=== PATIENT | female | born 1955 | race Caucasian/White ===

== ENCOUNTER → 2018-07-01 08:53 | Outpatient (CLI) | payer BC, SELFPAY ==
[2018-07-01 09:51] LABS: Absolute Basophil Count 0.06 k/cumm (0.0-0.2); Absolute Eosinophil Count 0.14 k/cumm (0.0-0.7); Absolute Lymphocyte Count 2.08 k/cumm (1.2-3.4); Absolute Monocyte Count 0.38 k/cumm (0.11-0.7); Absolute Neutrophil Count 1.78 k/cumm (1.2-6.7); Basophils % 1.4; Eosinophils % 3.2; HCT 29.1 % (36.0-46.0); HGB 9.2 g/dL (12.0-15.5); Lymphocytes % 46.8; Mean Corp. HGB Concentration 31.6 g/dL (32.0-36.0); Mean Corpuscular Hemoglobin 25.3 pg (27.0-33.0); Mean Corpuscular Volume 79.9 fL (80-95); Mean Platelet Volume 9.1 fL (8.0-11.0); Monocytes % 8.6; RBC 3.64 m/cumm (4.00-5.20); RBC Distribution Width 16.7 % (11.7-14.6); White Blood Cell Count 4.44 k/cumm (4.4-10.8)
[2018-07-01 10:37] LABS: Anisocytosis 1+; Diff Comment RBC Morph Reviewed; Platelet Count 565 x1000/uL (130-400)
[2018-07-01 10:38] LABS: Hypochromasia 1+; Poikilocytes 1+; Polychromasia Present
== END ==
PROVIDERS: PCP Family Medicine; Visit Provider Surgery
DX: D64.9 Anemia, unspecified (principal)
CPT/HCPCS: 36415; 85025

== ENCOUNTER 2018-07-30 00:53 | Outpatient (CLI) | payer BC, SELFPAY ==
--- NOTE | 2018-07-30 12:39 | DI.US_ITS ---
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 Transabdominal and transvaginal exams were performed. The uterus measures 6 by 2.4 by 3 cm. The endometrial stripe measures 2 mm. in thickness. There is a simple appearing cyst on the left ovary measuring 2.4 cm. in maximum diameter corresponding to the CT abnormality. On the right ovary, there is a question of a 1.9 by 1.5 by 1.6 cm. nodule which is isoechoic with ovarian tissue which could represent a proteinaceous cyst. No free fluid or hydronephrosis is seen. 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 IMPRESSION: 1. Simple appearing cyst of the left ovary measuring 2.4 cm. 2. 1.9 cm. solid appearing area of the right ovary could represent normal ovarian tissue versus a proteinaceous cyst. There is no internal vascularity.
== END 2018-07-30 01:13 ==
PROVIDERS: PCP Family Medicine; Visit Provider Internal Medicine Hematology & Oncology
DX: C18.2 Malignant neoplasm of ascending colon (principal); N83.292 Other ovarian cyst, left side; N83.291 Other ovarian cyst, right side
CPT/HCPCS: 76830; 76856

== ENCOUNTER 2018-07-30 02:06 | Outpatient (CLI) | payer BC, SELFPAY ==
[2018-07-30 11:12] LABS: Abs Immature Grans 0.01 k/cumm (0.0-0.09); Absolute Basophil Count 0.03 k/cumm (0.0-0.2); Absolute Eosinophil Count 0.05 k/cumm (0.0-0.7); Absolute Lymphocyte Count 2.15 k/cumm (1.2-3.4); Absolute Neutrophil Count 1.84 k/cumm (1.2-6.7); Basophils % 0.7; Eosinophils % 1.1; HCT 30.7 % (36.0-46.0); HGB 9.7 g/dL (12.0-15.5); Immature Grans % 0.2; Mean Corp. HGB Concentration 31.6 g/dL (32.0-36.0); Mean Corpuscular Hemoglobin 24.7 pg (27.0-33.0); Mean Corpuscular Volume 78.3 fL (80-95); Mean Platelet Volume 8.3 fL (8.0-11.0); Monocytes % 8.9; Neutrophils % 41.1; Platelet Count 561 x1000/uL (130-400); RBC 3.92 m/cumm (4.00-5.20); RBC Distribution Width 16.4 % (11.7-14.6); White Blood Cell Count 4.48 k/cumm (4.4-10.8)
[2018-07-30 11:21] LABS: ALT 21 U/L (12-78); AST 20 U/L (15-37); Albumin 3.5 g/dL (3.4-5.0); Alkaline Phosphatase 80 U/L (46-116); Anion Gap 8.7 mmol/L (3-11); BUN 15 mg/dL (7-18); Bilirubin, Total 0.6 mg/dL (0.2-1.0); CO2 27.3 mmol/L (21.0-32.0); CREATININE 0.88 mg/dL (0.55-1.02); Calcium 8.5 mg/dL (8.5-10.1); Chloride 102 mmol/L (98-107); Glucose 90 mg/dL (70-100); Potassium 3.8 mmol/L (3.5-5.1); Sodium 138 mmol/L (136-145); Total Protein 7.8 g/dL (6.4-8.2)
[2018-07-30 12:01] LABS: Iron 21 ug/dL (50-175); Total Iron Binding Capacity 394 ug/dL (250-450); Transferrin Sat 5 % (15-50)
[2018-07-30 12:23] LABS: Vitamin B12 730 pg/mL (193-986)
[2018-07-31 10:30] LABS: CEA 2.6 ng/ml
== END 2018-07-30 02:26 ==
PROVIDERS: PCP Family Medicine; Referring Provider Family Medicine; Visit Provider Internal Medicine Hematology & Oncology
DX: C18.2 Malignant neoplasm of ascending colon (principal); D50.0 Iron deficiency anemia secondary to blood loss (chronic)
CPT/HCPCS: 36415; 80053; 82378; 82607; 83540; 83550; 85025

== ENCOUNTER 2018-08-07 16:29 | Inpatient (IN) | payer BC, SELFPAY ==
[2018-08-07] VITALS (24 sets, daily range): BP systolic 132–181; BP diastolic 78–105; PULSE 66–80; RESP 16–18; TEMP 36.4–37.5; O2SAT 96–100
--- NOTE | 2018-08-07 16:48 | DI.RAD_ITS ---
SYMPTOM/DIAGNOSIS: FELL, LATERAL HIP PAIN RIGHT HIP: A nondisplaced intertrochanteric fracture of the right hip is demonstrated.
--- NOTE | 2018-08-07 16:53 | ED.GENADUL_ITS ---
Discharge Plan Discharge Details Chief Complaint: Orthopedic Reason For Visit: RIGHT INTERTROCHANTERIC HIP FRACTURE Admit Date/Time: 08/07/18 18:25 Admit Provider: Jose Bethea Attending Provider: Jose Bethea Primary Care Provider: Alec Neff ED Provider: Melody Ledezma Discharge Data Discharge Date/Time-TO BE ENTERED AT DEPARTURE: 08/07/18 19:42 Medical Decision Making MDM Narrative Medical decision making narrative: Patient presents today with cc of right hip pain after fall prior to arrival. Patient has not been able to ambulate since the incident. Indicates the lateral hip as area of maximal discomfort. Sensation is intact. 2+ distal pulses. She has a small, circular area of ecchymosis over the right hip. Sanchez is refusing to have the RLE moved at this time limiting my exam. She is very anxious, reports that she is nervous as she had surgery recently with Dr. Dela Cruz. Abdomen is soft and nontender, incision healing well. Patient and I discussed pain management techniques. Prefers to not use narcotics, prefers Tylenol at this time. Will give oral Tylenol and right hip xr. XR reviewed by myself, concerning for a nondisplaced fracture. Consulted with Dr. Bethea who reviewed the images and is coming in to evaluate the patient. Dr. Bethea evaluated the patient, plans to admit for hip fracture with need to surgical fixation. Dr. Bethea and myself discussed plan with west and her . All of their questions and concerns were addresse, they are in agreement with this plan HPI - General Adult General Mode of arrival: EMS . Date/Time Provider Initiated Documentation: 08/07/18 16:31 . Limitations to Documentation: no limitations . Information obtained by: patient . HPI Narrative: Patient is a 62-year-old female presenting today with chief complaint of right hip pain after fall. She reports she was playing with her grandchild when she slipped on the gravel and fell striking the lateral aspect of her right hip. Did not strike her head, no loss conscious. Denies any visual changes or nausea.. Denies any pain in her neck or back. Is indicating the lateral aspect of her right hip is area of maximal tenderness. Has not attempted to ambulate since the fall. Denies any altered sensation in the right leg. Also noted to have a small abrasion to the anterior aspect of the right knee. Patient has not received any analgesics prior to arrival. Related Data Home Medications Medication Instructions Recorded Confirmed calcium carbonate [Calcium 500] 500 mg PO DAILY 10/25/15 08/08/18 chlorthalidone 12.5 mg PO DAILY tab-cap 10/25/15 08/08/18 losartan 100 mg PO DAILY tab-cap 10/25/15 08/08/18 multivitamin [Daily Multi-Vitamin] 1 ea PO DAILY 10/25/15 08/08/18 omega-3 fatty acids [Fish Oil] 500 mg PO DAILY 10/25/15 08/08/18 Previous Rx's Medication Instructions Recorded acetaminophen [Tylenol] 650 mg PO Q6H PRN PRN tab 06/19/18 ibuprofen 600 mg PO Q6H PRN PRN #0 tab 06/19/18 lorazepam 0.5 mg PO Q6H PRN #14 tab 06/19/18 polyethylene glycol 3350 17 gm PO DAILY PRN #255 gm 06/19/18 Allergies Allergy/AdvReac Type Severity Reaction Status Date / Time No Known Allergies Allergy Unverified 05/10/18 09:01 General Stated Complaint: Orthopedic SAMANTHA: 3 Review of Systems Constitutional Reports as per HPI, Denies chills and Denies fever(s) Eyes Patient Reports as per HPI ENT Denies neck pain Cardiovascular Denies chest pain and Denies dyspnea Respiratory Denies cough, Denies pain on inspiration and Denies dyspnea Gastrointestinal Denies abdominal pain, Denies nausea and Denies vomiting Musculoskeletal Reports as per HPI, Reports abnormal gait (has not attempted to weight bear since incident), Denies muscle weakness, Denies neck pain, Denies numbness, Denies radiating pain into limb, Denies stiffness and Denies tingling Integumentary/Breasts Reports as per HPI Neurologic Reports abnormal gait (has not attempted to weight bear since incident), Denies numbness and Denies tingling PFSH Family History Other Alzheimer's dementia Brain malignancy Heart disease Laryngeal cancer Uterine cancer Medical History Abdominal pain Actinic keratosis Chronic anxiety Hyperkalemia Hypertension Melanoma Occult blood in stools Polyuria Skin cancer, basal cell Tobacco use Social History Smoking/Tobacco Use Status: Former Tobacco Use Surgical History Colonoscopy - MAC Hemicolectomy (06/13/18) Exam Const General: cooperative, healthy appearing, uncomfortable (patient will not move her right leg, states that she has refused to move the extremity since the time of the fall), well developed, well groomed and anxious Nutritional Appearance: average body habitus Orientation: alert and awake Chest Chest: normal inspection of the chest and normal palpation of entire chest wall Resp Effort & Inspection: normal respiratory effort, able to speak in complete sentences and no respiratory distress Auscultation: clear to auscultation bilaterally Cardio Rate: regular rate Rhythm: regular rhythm Heart Sounds: S1 normal and S2 normal GI Inspection: normal to inspection and incision (incision from surgery 8 weeks ago appears to be healing well) Palpation: soft, not firm, no guarding, not rigid and nontender Auscultation: normal bowel sounds Back/Spine/Pelvis Back: no CVA tenderness Cervical Spine: normal cervical lordosis and cervical ROM normal Thoracic/Lumbar Spine: thoracic and lumbar spine normal to inspection Skin General skin exam: ecchymosis (patient has a circular area of ecchymosis over the lateral interior aspect of the right hip 3cm in diameter) Lesions: lesion noted (patient has a abrasion to the lateral aspect of the right knee, no active bleeding) Neuro General: alert, awake and oriented x3 Cranial Nerves: CN's II-XI intact bilaterally Cognition: normal cognition Speech: speech normal Gait: gait abnormal (patient has not ambulated since the incident) Sensory Exam: no sensory deficits noted (no saddle paresthesias) Extrem General: abnormal ROM (patient will not let me move the RLE secondary to discomfrot along the lateral aspect of the hip. No shortneing noted, no rotational deformity), normal capillary refill, no joint enlargement, no pedal edema, no calf tenderness and no muscle atrophy Right lower extremity: normal capillary refill and hip/thigh (patient with palpation over the lateral aspect of the hip. Pelvis stalbe with no pain on testing); ROM limited, no cyanosis and no edema Psych Appearance: grossly normal and well kempt Mental Status: mental status grossly normal Speech and Movement: speech and movement normal (patient appears and sounds very anxious) Course Vital Signs Pulse Oximetry 100 08/07/18 16:29 Temperature 37.5 C 08/07/18 16:31 Pulse 78 08/07/18 16:32 Respiratory Rate 16 08/07/18 16:31 Blood Pressure 138/81 08/07/18 16:32 Pulse Oximetry 100 08/07/18 16:40
[2018-08-07] MEDS: Acetaminophen 500 MG TAB 1000 MG PO (16:57)
--- NOTE | 2018-08-07 17:41 | DI.VRAD_ITS ---
EXAM: XR Right Hip With Pelvis When Performed, 2 or 3 Views CLINICAL HISTORY: 62 years old, female; Injury or trauma; Fall; Initial encounter; Blunt trauma (contusions or hematomas); Right; Hip; Patient HX: Fall, lateral hip pain TECHNIQUE: Two or three views of the right hip, with pelvis when performed. COMPARISON: US PELVIS TRANSVAGINAL 07/30/2018 6:36 PM FINDINGS: Bones/joints: Diffuse osteopenia. Degenerative changes within the lower lumbar spine and sacroiliac joints. The sacrum is suboptimally visualized due to to overlying bowel gas and stool. There is a nondisplaced fracture of the right intertrochanteric femur. No dislocation. Soft tissues: Unremarkable. IMPRESSION: Nondisplaced fracture of the right intertrochanteric femur. Dictated and Authenticated by: Rafael Ahumada MD. Ordering:KIM MIRANDA MD
--- NOTE | 2018-08-07 18:48 | OCONE_ITS ---
Date of service: 08/07/18 Time of Service: 18:42 History of Present Illness Chief Complaint: Right Hip Pain Narrative: Emily is a 62-year-old who was playing with her grandchild earlier today. She slipped on gravel and fell onto the right hip. She struck the lateral aspect of the proximal right leg. She had immediate pain. She is unable to get up. She had pain along the lateral aspect of the right hip. She felt anxious to move or try to stand. She has been unable to ambulate. She denies any numbness or tingling. No break in the skin. She was recently discharged in the hospital for a colon resection for cancer and has been slow to recover at home. She is taking no pain medications but does take occasional lorazepam and ibuprofen. She is on no blood thinners. She has no cardiac history. She has no lung disease. She does have some hypertension. Consults Consult date: 08/07/18 Requesting physician: Melody Ledezma Assessment and Plan (1) Fracture, intertrochanteric, right femur: Start date: 08/07/18 Current visit: Yes Status: Acute Emily is a 62-year-old who had a mechanical fall today landing on her right hip. She has a nondisplaced right trochanter intertrochanteric hip fracture. I discussed treatment options with Emily. I do recommend surgical stabilization. This will allow immediate weightbearing. I did discuss nonoperative treatment options but she agrees to proceed with operative intervention. She is quite anxious about the procedure. She is anxious about further surgery given the prolonged recovery she has had on the colectomy. I discussed the risk of the procedure in detail with her. These included but not limited to bleeding, infection, pain, stiffness, malunion, nonunion, malrotation , leg length discrepancy, blood clot. Despite these risks, she does elect to proceed. We will try to limit her pain medication usage. She has had good benefit using benzodiazepines in the past rather than narcotics. We will keep her on ketorolac and Tylenol while she is here. She is nonweightbearing on the right lower extremity until surgery. She may eat tonight but will be n.p.o. after midnight. I will obtain labs and type and screen today in the emergency department. Plan for intramedullary nail fixation of the right femur tomorrow in the operating room. Review of Systems Review of Systems All systems reviewed & are unremarkable except as noted in HPI and below PFSH Family History Other Alzheimer's dementia Brain malignancy Heart disease Laryngeal cancer Uterine cancer Medical History Abdominal pain Actinic keratosis Chronic anxiety Hyperkalemia Hypertension Melanoma Occult blood in stools Polyuria Skin cancer, basal cell Tobacco use Social History Smoking/Tobacco Use Status: Former Tobacco Use Surgical History Colonoscopy - MAC Hemicolectomy (06/13/18) Exam Narrative Exam Narrative: Evaluation of the right hip shows no overlying skin changes. There is no ecchymosis. There is a very superficial abrasion seen over the lateral aspect of the hip. There is some mild pain to palpation over the lateral right hip. She does tolerate some internal and external rotation however when you get to the extremes of external and internal rotation she has pain rated his pain is localized to the groin as well as the lateral aspect of the right hip. With any flexion she also has pain as well as added rotation. The right leg is may be slightly externally rotated when compared to the contralateral side. No shortening. Sensation intact light touch over the femoral and sciatic nerves. She has intact great toe extension, flexion, ankle dorsiflexion, ankle plantarflexion. No pain along the knee. Const General: cooperative, healthy appearing, comfortable and no acute distress Orientation: alert and oriented x3 HENMT Head: normal to inspection Results Labs : 08/07/18 18:30 08/07/18 18:30 Imaging Imaging Studies: X-ray of the right hip demonstrates a nondisplaced fracture through the intertrochanteric region. No distal extension. No suspicious lesions.
[2018-08-07 19:19] LABS: HCT 27.7 % (36.0-46.0); Mean Corp. HGB Concentration 32.5 g/dL (32.0-36.0); Mean Corpuscular Hemoglobin 24.5 pg (27.0-33.0); Mean Corpuscular Volume 75.5 fL (80-95); Platelet Count 474 x1000/uL (130-400); RBC 3.67 m/cumm (4.00-5.20); RBC Distribution Width 16.1 % (11.7-14.6); White Blood Cell Count 12.47 k/cumm (4.4-10.8)
[2018-08-07 19:24] LABS: Anion Gap 10.9 mmol/L (3-11); BUN 23 mg/dL (7-18); CO2 23.1 mmol/L (21.0-32.0); CREATININE 0.81 mg/dL (0.55-1.02); Calcium 8.4 mg/dL (8.5-10.1); Chloride 103 mmol/L (98-107); Glucose 104 mg/dL (70-100); Potassium 3.5 mmol/L (3.5-5.1); Sodium 137 mmol/L (136-145)
[2018-08-07] MEDS: Ketorolac 15 MG/ML VIAL IVP (21:16)
[2018-08-07] MEDS: HYDROmorphone 2 MG/ML VIAL 0.5 MG IVP (21:17)
[2018-08-07] MEDS: LORazepam 0.5 MG TAB PO (21:19)
[2018-08-07] MEDS: traMADol 50 MG TAB PO (21:35)
--- NOTE | 2018-08-07 22:21 | NUR.NOTE ---
1929 elisa pt arrived via stetcher to room 214Nursing Note:
[2018-08-07] MEDS: Normal Saline Flush 10 ML SYR 30 ML (23:34)
[2018-08-08] VITALS (12 sets, daily range): BP systolic 122–156; BP diastolic 71–90; PULSE 61–85; RESP 13–18; TEMP 36–36.8; O2SAT 94–97
[2018-08-08] MEDS: Normal Saline Flush 10 ML SYR IVP ×3 (01:59→21:13)
[2018-08-08] MEDS: Ketorolac 15 MG/ML VIAL IVP ×4 (01:59→21:12)
[2018-08-08] MEDS: Acetaminophen 500 MG TAB 1000 MG PO ×3 (08:43→21:12)
[2018-08-08] MEDS: LORazepam 0.5 MG TAB PO ×2 (08:44→14:47)
--- NOTE | 2018-08-08 08:46 | DI.RAD_ITS ---
SYMPTOMS/DIAGNOSIS: INTERTROCHANTERIC RT FEMUR FX INTRAOPERATIVE RIGHT HIP: Fluoroscopy Time: 55.3 sec Intraoperative images demonstrate fixation of an intertrochanteric fracture of the right hip with an intramedullary tripp and nail. The fracture is in anatomic position.
[2018-08-08] MEDS: Lactated Ringers 1,000 ML 80 ML IV ×2 (09:54→14:17)
[2018-08-08] MEDS: Bupivacaine 0.5% Pres-Free 30 ML VIAL (11:16)
[2018-08-08] MEDS: Bupivacaine LIPOSOME/PF 133 MG/10 ML VIAL IJ (11:16)
--- NOTE | 2018-08-08 12:39 | NUR.NOTE ---
Nursing Note: Pt arrived from PACU in bed. Alert and arousable but able to fall asleep quickly. VSS, see worklist. denies pain, c/o slight nausea but feel asleep after reporting it. Jay in place and patent. mepilex Ag x2 on right lateral thigh. Maulik at bedside. will continue to monitor.
--- NOTE | 2018-08-08 13:23 | PDOC.CMIN ---
Care Management Initial Assess REASON FOR HOSPITALIZATION:: R hip fracture PAST MEDICAL HISTORY/PAST SURGICAL HISTORY:: Medical: abdominal pain, actinic keratosis, chronic anxiety, hyperkalemia, HTN, melanoma, occult blood in stool, polyuria, basal cell skin Ca, tobacco abuse. Surgical: colonoscopy, hemicolectomy. PREVIOUS FUNCTIONAL STATUS/SOCIAL/FAMILY SUPPORTS:: Emily is 62 yo woman who lives with her in their home in [facility]. She had recent colon resection this past summer and has been recovering from that surgery when this fx happened. 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 But both of them still work there occassionally. Daughter lives next door to them and has been very helpful this summer. She is usually independent and still drives. CURRENT FUNCTIONAL STATUS:: She is lying in bed when CM enters, having just returned from surgery, so she was slightly groggy. She was able to participate in discussion re possible plans, but much will depend upon how she does with PT tomorrow. ADVANCE DIRECTIVES:: does not have one and declines information. Has patient been provided with information about the portal?: Yes Did the patient sign up for the portal?: No CODE STATUS:: Full Code INSURANCE COVERAGE / FINANCIAL ISSUES:: BC/BS CURRENT HOME/COMMUNITY SERVICES/EQUIPMENT:: No services or medical equipment used. PRIMARY CARE PHYSICIAN:: Alec Neff MD POTENTIAL DISCHARGE NEEDS:: Will need either walker or crutches for ambulation. May need OP PT after d/c, or HH for PT. Will need follow-up with surgeon as directed. PATIENT/FAMILY EDUCATION NEEDS:: Review d/c instructions re meds and activity levels. Review Ask me Three questions. ANTICIPATED BARRIERS TO DISCHARGE:: none identified TRANSPORTATION:: via car with . PLAN:: d/c home as per MD with OP vs HH for PT depending upon needs.
--- NOTE | 2018-08-08 14:42 | CHAPLAIN ---
I was asked by on of the night nurses to visit Holley this morning as she was feeling anxious about her hip repair surgery. Holley told me about her stage II colon cancer that required surgery this summer (but no radiation or chemo). She said she has recovered from that, but was worried about not having another surgery. We talked about the hip surgery being less invasive. Dr. Bethea came in to discuss the surgery and get her consent. the CNRA and an operating nurse also arrived to ask questions and share information. Holley told me about her move to [place], and marrying Maulik and who the two of them have run [employer] for many years. Their daughter now runs it. Holley was playing with her 4 year old granddaughter Sammi, when she fell and broke her hip. She remained anxious, but was able to distract herself by talking about her granddaughter and sharing some personal history. She practices yoga and meditation for many years and knows these activities will help her relax during her recover (once she is able to do yoga.) She was raised [employer] but is no longer attends yazidism.
--- NOTE | 2018-08-08 14:59 | PHARADMIT ---
Addendum entered by Clarita Wilkerson 08/09/18 14:04: Pharmacy Note Subjective post op hip fracture repair .discharge in next 1-2 days Objective pain 4/10, vs ok, H/H 8.1/25.7, Assessment Iv pain meds and scheduled ketorolac IV Plan follow H/H Original Note: Admission Pharmacy Clinical Review RIGHT INTERTROCHANTERIC HIP FRACTURE Code Status Full Code Current Weight 65.771 kg Renally Cleared and Narrow Therapeutic Index Meds CRCL ~74ML/MIN QTc Value / Action Taken BP Control, Fever 134/82 AFEBRILE Electrolytes reviewed OK DVT Prophylaxis NO, SURGERY TODAY Opiate Usage / Scheduled Bowel Regimen Ordered PRN/PRN Plt/SCr for Heparin / Enoxaparin 474, 0.81 INR for Warfarin NA H/H stable, WBC/Bands 9.0/27.7 WBC 12.47 Antibiotic appropriateness ANCEF PREOP AND POST OP X 24 HRS Cultures and Sensitivities NA Surgical ABX d/c within 24 hr PENDING DC DM control / Insulin Dosing NA Heart Failure (Check EF%) (MERCED's, B-Block, Diuretics) NA IV to PO Switch Home Meds Reviewed OK Home Meds Not Ordered calcium carbonate [Calcium 500] 500 mg PO DAILY 10/25/15 multivitamin [Daily Multi-Vitamin] 1 ea PO DAILY 10/25/15 omega-3 fatty acids [Fish Oil] 500 mg PO DAILY 10/25/15 ibuprofen 600 mg PO Q6H PRN PRN #0 tab 06/19/18 [Rx Confirmed 08/08/18] lorazepam 0.5 mg PO Q6H PRN #14 tab 06/19/18 [Rx Confirmed 08/08/18] polyethylene glycol 3350 17 gm PO DAILY PRN #255 gm 06/19/18 Comments
--- NOTE | 2018-08-08 15:29 | PT.INIE ---
Date of service: 08/08/18 Time of Service: 14:30 PT Notes Date: 08/08/18 Referring Doctor: Jose Bethea PT Orders: PT Consult s/p IMN fixation of R IT fracture Precautions: WBAT R LE PATIENT PROFILE/ADMITTING DIAGNOSIS: Pt is a 62yr old female s/p right interamedullary nailing of right intertrochanteric femur fracture PMHX: malignant neoplasm of the cecum, basal cell carcinoma, melanoma, polyuria, anxiety, hypertension, hyperkalemia Social History/Home Situation: Lives with in a 2 story house, 10 steps with right railing to upstairs bedrooms. Baseline mobility independent gait with no device, independent with ADLS Equipment owned/DME: FWW SUBJECTIVE: Pt lying in bed, anxious about her surgery and recovery, pt agreeable to PT Consult. OBJECTIVE: General Observation: IV R UE, bowles catheter Mental Status: A& O x3 Pain: no c/o pain BED MOBILITY/TRANSFERS: Supine-sit: HOB 30 degrees, Lyndsay for R LE Sit-stand: SBA with FWW Stand-sit: SBA Sit-supine: HOB flat, Lyndsay for R LE GAIT: SBA with FWW 5ft, WBAT R LE. slow step to gait pattern, pt slightly lightheaded, returned to bed after standing. Nursing to get patient to chair for dinner later this evening. THEREX Performed seated ankle pumps, quad sets, glute sets x 20 reps BALANCE: Static sitting normal Dynamic Sitting normal Static Standing fair Dynamic Standing fair SPECIAL TESTS: Mobility Limitations Standardized Measure [facility] AM -PAC ?6 clicks? Basic Mobility Inpatient Short Form: raw score: 18 standardized score: 43.63 CMS score: 46.58% CMS modifier: CK INFORMED CONSENT/EDUCATION: Pt instructed in purpose of PT Consult and plan of care ASSESSMENT: Pt is a 62yr old female s/p right interamedullary nailing of right intertrochanteric femur fracture. Pt presents with the following impairments: pain and edema right hip post operatively, decreased strength in right hip, decreased ability to lift right LE into/out of bed, decreased strength with standing transfers and gait mobility requiring use of FWW for stability to prevent falls. Pt was able to mobilize to bedside and intiate gait in room this afternoon. Will initiate stair training tomorrow, pt has 10 steps at home. Impairments are contributing to the following functional limitations: AMPAC score CMS score: 46.58% Patient is assessed as a *[id number] complexity based on the following: History: s/p right interamedullary nailing of right intertrochanteric femur fracture, anxiety Examination: right hip, pain and edema right hip post operatively, decreased strength in right hip, decreased ability to lift right LE into/out of bed, decreased strength with standing transfers and gait mobility requiring use of FWW for stability to prevent falls. Presentation: stable Decision Making: AMPAC score CMS score: 46.58% GOALS 1. Supine-sit: independent 2. Sit-supine: indepdnent 3. Sit-stand: supervision with FWW 4. Stand-sit: supervision 5. Bed-chair: supervision with FWW 6. Chair-bed: supervision with FWW 7. Gait: supervision with FWW 100ft WBAT R LE 8. Up/down 10 steps with railing. SBA WBAT R LE DISCHARGE RECOMMENDATIONS Home, has all DME TREATMENT TIME/MINUTES/CODES 30min IE 1430 G Codes in the area mobility of walking and moving around: current status [id number] __CK projected status GP [id number] . Discharge status (if discharging) GP [id number] emumd on AMPAC score CMS score: 46.58% Liza Levin PT
--- NOTE | 2018-08-08 15:39 | IN_ITS ---
Date of service: 08/08/18 Time of Service: 14:30 PT Notes Date: 08/08/18 Referring Doctor: Jose Bethea PT Orders: PT Consult s/p IMN fixation of R IT fracture Precautions: WBAT R LE PATIENT PROFILE/ADMITTING DIAGNOSIS: Pt is a 62yr old female s/p right interamedullary nailing of right intertrochanteric femur fracture PMHX: malignant neoplasm of the cecum, basal cell carcinoma, melanoma, polyuria , anxiety, hypertension, hyperkalemia Social History/Home Situation: Lives with in a 2 story house, 10 steps with right railing to upstairs bedrooms. Baseline mobility independent gait with no device, independent with ADLS Equipment owned/DME: FWW SUBJECTIVE: Pt lying in bed, anxious about her surgery and recovery, pt agreeable to PT Consult. OBJECTIVE: General Observation: IV R UE, bowles catheter Mental Status: A& O x3 Pain: no c/o pain BED MOBILITY/TRANSFERS: Supine-sit: HOB 30 degrees, Lyndsay for R LE Sit-stand: SBA with FWW Stand-sit: SBA Sit-supine: HOB flat, Lyndsay for R LE GAIT: SBA with FWW 5ft, WBAT R LE. slow step to gait pattern, pt slightly lightheaded, returned to bed after standing. Nursing to get patient to chair for dinner later this evening. THEREX Performed seated ankle pumps, quad sets, glute sets x 20 reps BALANCE: Static sitting normal Dynamic Sitting normal Static Standing fair Dynamic Standing fair SPECIAL TESTS: Mobility Limitations Standardized Measure [facility] AM -PAC ?6 clicks? Basic Mobility Inpatient Short Form: raw score: 18 standardized score: 43.63 CMS score: 46.58% CMS modifier: CK INFORMED CONSENT/EDUCATION: Pt instructed in purpose of PT Consult and plan of care ASSESSMENT: Pt is a 62yr old female s/p right interamedullary nailing of right intertrochanteric femur fracture. Pt presents with the following impairments: pain and edema right hip post operatively, decreased strength in right hip, decreased ability to lift right LE into/out of bed, decreased strength with standing transfers and gait mobility requiring use of FWW for stability to prevent falls. Pt was able to mobilize to bedside and intiate gait in room this afternoon. Will initiate stair training tomorrow, pt has 10 steps at home. Impairments are contributing to the following functional limitations: AMPAC score CMS score: 46.58% Patient is assessed as a *[id number] complexity based on the following: History: s/p right interamedullary nailing of right intertrochanteric femur fracture, anxiety Examination: right hip, pain and edema right hip post operatively, decreased strength in right hip, decreased ability to lift right LE into/out of bed, decreased strength with standing transfers and gait mobility requiring use of FWW for stability to prevent falls. Presentation: stable Decision Making: AMPAC score CMS score: 46.58% GOALS 1. Supine-sit: independent 2. Sit-supine: indepdnent 3. Sit-stand: supervision with FWW 4. Stand-sit: supervision 5. Bed-chair: supervision with FWW 6. Chair-bed: supervision with FWW 7. Gait: supervision with FWW 100ft WBAT R LE 8. Up/down 10 steps with railing. SBA WBAT R LE DISCHARGE RECOMMENDATIONS Home, has all DME TREATMENT TIME/MINUTES/CODES 30min IE 1430 G Codes in the area mobility of walking and moving around: current status [id number] __CK projected status GP [id number]__MM . Discharge status ( if discharging) GP [id number]___OR grqez on AMPAC score CMS score: 46.58 % Liza Levin PT
[2018-08-08] MEDS: traMADol 50 MG TAB PO (16:34)
[2018-08-09] VITALS (7 sets, daily range): BP systolic 111–171; BP diastolic 69–93; PULSE 65–86; RESP 15–20; TEMP 36.3–37; O2SAT 96–98
[2018-08-09] MEDS: Normal Saline Flush 10 ML SYR IVP ×3 (02:49→14:31)
[2018-08-09] MEDS: Ketorolac 15 MG/ML VIAL IVP ×4 (02:50→20:13)
[2018-08-09] MEDS: Lactated Ringers 1,000 ML 80 ML IV (03:43)
[2018-08-09 07:18] LABS: HCT 25.7 % (36.0-46.0); HGB 8.1 g/dL (12.0-15.5); Mean Corp. HGB Concentration 31.5 g/dL (32.0-36.0); Mean Corpuscular Hemoglobin 24.5 pg (27.0-33.0); Mean Corpuscular Volume 77.6 fL (80-95); Platelet Count 353 x1000/uL (130-400); RBC 3.31 m/cumm (4.00-5.20); RBC Distribution Width 16.4 % (11.7-14.6); White Blood Cell Count 9.33 k/cumm (4.4-10.8)
[2018-08-09] MEDS: LORazepam 0.5 MG TAB PO (07:25)
[2018-08-09] MEDS: traMADol 50 MG TAB PO (07:25)
[2018-08-09 07:36] LABS: Anion Gap 7.9 mmol/L (3-11); BUN 15 mg/dL (7-18); CO2 27.1 mmol/L (21.0-32.0); Calcium 8.6 mg/dL (8.5-10.1); Chloride 103 mmol/L (98-107); Glucose 99 mg/dL (70-100); Potassium 4.1 mmol/L (3.5-5.1); Sodium 138 mmol/L (136-145)
--- NOTE | 2018-08-09 08:32 | PT.INTREAT ---
Date of service: 08/09/18 Time of Service: 08:32 PT Notes Inpatient Physical Therapy Treatment Note Date: 08/09/18 PRECAUTIONS: WBAT on right SUBJECTIVE: Emily states that she would like to get up, she is having some pain in her right hip area this morning, though she thinks it will feel better if she changes position. OBJECTIVE: PAIN: Patient complained of pain in right hip area with transfers and weight bearing BED MOBILITY/TRANSFERS Supine-sit: SBA with HOB at 30? Sit-stand: SBA Stand-sit: SBA GAIT Assistive Device: FWW Weight bearing: WBAT on right Assist: SBA Distance: 40' ?2 Deviation: Patient demonstrates slow pace using step through gait pattern THEREX: Patient completed a lower extremity strengthening program, as per flow sheet. ASSESSMENT: Patient tolerated session with complaints of pain in the right hip area with transfers and weight bearing. Patient was able to tolerate a progression in gait distance using FWW support and SBA only. Patient would benefit from continued strengthening of the right lower extremity, as well as gait training for improved mobility. PLAN: Continue with PTs POC TREATMENT CODE/TIME: 40 minutes; TA ?2/TP
[2018-08-09] MEDS: Acetaminophen 500 MG TAB 1000 MG PO ×3 (08:44→20:12)
[2018-08-09] MEDS: Chlorthalidone 25 MG TAB 12.5 MG PO (08:45)
[2018-08-09] MEDS: Losartan 50 MG TAB 100 MG PO (08:47)
--- NOTE | 2018-08-09 09:34 | ROE_ITS ---
REPORT OF OPERATIVE PROCEDURE DATE OF SURGERY August 08, 2018 PREOPERATIVE DIAGNOSIS Nondisplaced right intertrochanteric hip fracture. POSTOPERATIVE DIAGNOSIS Nondisplaced right intertrochanteric hip fracture. SURGERY Intramedullary nail fixation of right intertrochanteric hip fracture. SURGEON Jose Bethea M.D. PHARMACY AIDE MELANY Barahona ANESTHESIA Spinal. ESTIMATED BLOOD LOSS 50 cc COMPLICATIONS None. DISPOSITION The patient was awakened from anesthesia and taken to the PACU in stable condition. INDICATIONS FOR PROCEDURE Holley is a 62-year old, who had a fall at home. She was unable to ambulate. X-rays showed that she had a nondisplaced intertrochanteric hip fracture. I discussed treatment options with Holley. Given the r egion of the hip fracture and its potential to displace with any weightbearing, I did recommend stabi lization with intramedullary nail. I reviewed the risk of the procedure to include bleeding, infectio n, pain, stiffness, malunion, nonunion, blood clot. Despite these risks, she elects to proceed. PROCEDURE DESCRIPTION Holley was greeted in the preoperative holding area. Her identity was confirmed. Her site had been prev iously marked as the correct site and her consent was previously signed. She was taken back to the Operating Room, and kept in the hospital bed. Anesthesia was then able to p erform a spinal anesthetic in her hospital bed. After the spinal anesthetic had successfully been adm inistered, she was transferred over to the fracture table. She was positioned down with the peroneal post. All bony prominences were well padded. The nonoperative leg was wrapped in a pillow and taped against the leg boom. The operative side was placed in to a traction boot. The leg was held in a neut ral position given the nondisplaced nature of the fracture. When she was secured to the table, preope rative x-rays were obtained to make sure that we had appropriate alignment of the fracture site witho ut any further displacement. 1 gram and tranexamic acid was given. Prophylactic antibiotics in the fo rm of cefazolin were administered. The right leg was prepped with ChloraPrep and draped in a standard fashion. A time-out was performed for safe surgery. Using fluoroscopy, I then initiated a starting point proximal to tip of the greater trochanter. A 3- cm incision was made through the skin down through the abductor fascia and the abductor musculature d own to the tip of the greater trochanter. The starting guidewire was placed at the tip of the greater trochanter and advanced down the proximal femur. Once in appropriate position, confirmed in both AP and lateral fluoroscopy, I then advanced an opening reamer through the proximal femur. A short Synthe s TFNA intramedullary nail was then inserted. It was positioned appropriately without any difficultie s. The triple sleeve was advanced down to the skin and a lateral incision was made at the location o f the helical blade. The sleeve was inserted all the way down to the proximal femur. The path of the helical blade was positioned with a guidewire and confirmed to be in good position both on the AP and lateral. Once this was in appropriate position, the helical blade length was measured as a 90-mm bl pavel. The path of the blade was reamed with a tapered reamer. The helical blade was then inserted and malleted into position until it was fully seated. Using the flexible screwdriver, the set screw was t aken all the way down and then backed off a half turn to allow the helical blade to slide, but not tu rn and rotate. This was once again confirmed with x-ray to be in appropriate positioning without any change in position. The distal interlocking screw was then placed through the targeting guide. It was done so without difficulty. The targeting guide was removed and x-rays were confirmed to show that t he screw and blade were through the nail and the nail was in appropriate position, centered in the he ad both in the AP and the lateral. The wounds were then thoroughly irrigated. The wound sites were in jected with a mixture of 0.5% bupivacaine and 10 cc of Exparel. The deep fascia in the proximal was c losed with a 0- Vicryl. The deep tissues were closed with #2-0 Vicryl. The skin was closed with stapl es. At the end of the case, all counts were corrected. She was transferred back to the hospital bed i n stable condition.
[2018-08-09] MEDS: Enoxaparin 40 MG/0.4 ML SYR SC (12:14)
--- NOTE | 2018-08-09 12:37 | W.PM.PROGNOT ---
Date of service: 08/09/18 Time of Service: 12:37 Assessment and Plan (1) Fracture, intertrochanteric, right femur: Current visit: Yes Status: Martín Babb is a 62-year-old status post intramedullary fixation of a nondisplaced right intertrochanteric hip fracture. She did come to the hospital with baseline anemia. Her hemoglobin did change from 9-8.1. However, she is currently without symptoms. Therefore, we will continue to follow. She will continue with physical therapy, weightbearing as tolerated. We will remove the Jay catheter and fluids later today. She will need enoxaparin 40 mg daily for DVT prophylaxis for the first 2 weeks. She will likely be able to discharge home in the next 1-2 days. Subjective Interval history since last seen: Holley reports to be doing well. She does have some pain about the right hip but she has been able to move herself in bed with much less discomfort. In general she is only taking 2 pain pills. She finds that it is quite manageable. She did get up and stand yesterday evening but got a little lightheaded. Since then, she has not had any further lightheadedness. She denies any chest pain or shortness of breath. She denies any numbness or tingling. No fever or chills. Exam Narrative Exam Narrative: Dressings about the right hip are clean dry and intact. There is some mild tenderness to palpation especially in the posterior lateral aspect of the right hip. Gentle range of motion of the hip does not seem to increase pain. Sensation intact to light touch over the deep and superficial peroneal nerve and tibial nerves. The foot is warm well perfused. Objective Objective Clinical Data: Abnormal lab results 08/09/18 Range/Units 06:50 RBC 3.31 L (4.00-5.20) m/cumm Hgb 8.1 L (12.0-15.5) g/dL Hct 25.7 L (36.0-46.0) % MCV 77.6 L (80-95) fL MCH 24.5 L (27.0-33.0) pg MCHC 31.5 L (32.0-36.0) g/dL RDW 16.4 H (11.7-14.6) % Vital Signs Temp 36.8 C 08/09/18 11:10 Pulse 73 08/09/18 11:10 Resp 18 08/09/18 11:10 BP 131/84 08/09/18 11:10 Pulse Ox 97 08/09/18 11:10 Intake & Output 08/08/18 08/09/18 08/09/18 23:59 11:59 23:59 Intake Total 240 / 240 1840 / 1840 Output Total 700 / 700 650 / 650 Balance -460 / -460 1190 / 1190 Intake: IV 1050 / 1050 Oral 240 / 240 790 / 790 Output: Urine 700 / 700 650 / 650 Other: Urine Color Pale Yellow Yellow Urine Appearance Clear Clear Stool Size Large Stool Characteristics Soft Formed Brown Emesis Description None Laboratory Results WBC 9.33 k/cumm (4.4-10.8) 08/09/18 06:50 RBC 3.31 m/cumm (4.00-5.20) L 08/09/18 06:50 Hgb 8.1 g/dL (12.0-15.5) L 08/09/18 06:50 Hct 25.7 % (36.0-46.0) L 08/09/18 06:50 MCV 77.6 fL (80-95) L 08/09/18 06:50 MCH 24.5 pg (27.0-33.0) L 08/09/18 06:50 MCHC 31.5 g/dL (32.0-36.0) L 08/09/18 06:50 RDW 16.4 % (11.7-14.6) H 08/09/18 06:50 Plt Count 353 x1000/uL (130-400) D 08/09/18 06:50 MPV 9.0 fL (8.0-11.0) 08/09/18 06:50 Sodium 138 mmol/L (136-145) 08/09/18 06:50 Potassium 4.1 mmol/L (3.5-5.1) 08/09/18 06:50 Chloride 103 mmol/L (98-107) 08/09/18 06:50 Carbon Dioxide 27.1 mmol/L (21.0-32.0) 08/09/18 06:50 Anion Gap 7.9 mmol/L (3-11) 08/09/18 06:50 BUN 15 mg/dL (7-18) D 08/09/18 06:50 Creatinine 0.80 mg/dL (0.55-1.02) 08/09/18 06:50 Estimated GFR/1.73 m2 >= 60.00 (mL/min/1.73m2) 08/09/18 06:50 Glucose 99 mg/dL (70-100) 08/09/18 06:50 Calcium 8.6 mg/dL (8.5-10.1) 08/09/18 06:50 Patient ABO/Rh O Positive 08/07/18 19:05 Antibody Screen Negative 08/07/18 19:05
--- NOTE | 2018-08-09 12:41 | PDOC.CMPRO ---
- If Service Date Differs Date of service: 08/09/18 Time of Service: 12:41 Care Management Progress Note S/O: Holley is lying in bed when this leader writer visits this morning. She is pleasant and open to discussion. Holley will work with PT this morning. She is hoping to return home in the next 1-2 days. Discussed DC plans which remain the same at this time. A: 62 y/o female admitted 08/07/18 with (R) intertrochanteric hip fracture. P: Holley will return home with ? OP PT once medically cleared. Holley's Jez will transport when ready.
--- NOTE | 2018-08-09 12:56 | CMPROGNOTE_ITS ---
- If Service Date Differs Date of service: 08/09/18 Time of Service: 12:41 Care Management Progress Note S/O: Holley is lying in bed when this resume writer visits this morning. She is pleasant and open to discussion. Holley will work with PT this morning. She is hoping to return home in the next 1-2 days. Discussed DC plans which remain the same at this time. A: 62 y/o female admitted 08/07/18 with (R) intertrochanteric hip fracture. P: Holley will return home with ? OP PT once medically cleared. Holley's Jez will transport when ready.
--- NOTE | 2018-08-09 13:21 | PT.INTREAT ---
Date of service: 08/09/18 Time of Service: 13:19 PT Notes Inpatient Physical Therapy Treatment Note Date: 08/09/18 PRECAUTIONS: Fall precautions, WBAT R LE SUBJECTIVE: Pt sitting in chair, agreeable to therapy session. States she is nervous about going home tomorrow. Discussion with patient regarding her concerns and reassurance provided that she is mobilizing well in therapy sessions and is not requiring any assistance with her mobility. Pt in agreement and acknowledges she just feels nervous from the trauma. OBJECTIVE: General Observation: IV R UE, bowles catheter Pain: mild soreness right hip reported with mobility BED MOBILITY/TRANSFERS: Sit-stand: supervision with FWW Chair-bed: supervision with FWW Stand-sit: supervision Sit-supine: HOB flat, supervision. Pt able to lift R LE into bed without assistance GAIT: supervision with FWW 150ft, WBAT R LE. Slow step to gait pattern, stride and suma improved as gait progressed. Pt returned to be after session completed. Pt plans to mobilize this evening with nursing assistance. STAIRS Instructed in and performed up/down 5 steps with railing supervision, step to step sequence. BALANCE: Static sitting normal Dynamic Sitting normal Static Standing fair Dynamic Standing fair ASSESSMENT: Pt mobilizing well with transfers, gait and stair mobility, has some soreness post operatively but pain is being managed with ice packs and pain medication. Pt is at functional level to be able to return to home setting when medically cleared, safely mobilizing with FWW, pt's anxiety is her primary limitation. Will plan to assess stairs and gait again in am. PLAN: Progress stairs Progress gait TREATMENT CODE/TIME: 24min Tax1 TPx1 1318 Liza Levin PT
--- NOTE | 2018-08-09 21:49 | DSE_ITS ---
Date of service: 08/10/18 DS: Diagnosis Discharge Diagnosis (1) Fracture, intertrochanteric, right femur: Status: Acute Discharge Plan Disposition Patient Disposition: HOME Condition: Improving Discharge Details Chief Complaint: Orthopedic Reason For Visit: RIGHT INTERTROCHANTERIC HIP FRACTURE Admit Date/Time: 08/07/18 18:25 Admit Provider: Jose Bethea Attending Provider: Jose Bethea Primary Care Provider: Alec Neff ED [facility] Hospital Course: She was admitted to the medical surgical floor from the emergency department on her date of admission. She went to the operating room on hospital day #2. She underwent intramedullary nail fixation of the right intertrochanteric hip fracture. She tolerated this procedure well. She is able to mobilize up with a #0 and more fully opposed to 1. Her catheter was removed and the posterior one is she is voiding spontaneously. Her initial postoperative hemoglobin dropped from 9 to 8.1. Her vital signs are stable and her pain was well controlled. By postop day #2 she was deemed safe for discharge home. Home Meds and New Rx's Prescriptions: New losartan 50 mg Tablet 100 mg PO QAM Qty: 0 RF: 0 chlorthalidone 25 mg Tablet 12.5 mg PO DAILY Qty: 0 RF: 0 tramadol 50 mg Tablet 50 mg PO Q6H PRN PRN (Reason: Pain) Qty: 10 RF: 0 acetaminophen [Mapap Extra Strength] 500 mg Tablet 1,000 mg PO TID Qty: 100 RF: 0 lorazepam 0.5 mg Tablet 0.5 mg PO Q6H PRN PRNQty: 15 RF: 0 docusate sodium [Colace] 100 mg Capsule 100 mg PO BID PRN PRN (Reason: Constipation) Qty: 0 RF: 0 ibuprofen [IBU] 600 mg Tablet 600 mg PO TID PRN (Reason: Pain) Qty: 90 RF: 3 aspirin [Aspir-81] 81 mg tablet,delayed release (DR/EC) 81 mg PO BID Qty: 80 RF: 0 No Action chlorthalidone 25 MG tablet 12.5 mg PO DAILY RF: 0 losartan 100 MG tablet 100 mg PO DAILY RF: 0 multivitamin [Daily Multi-Vitamin] 1 EACH tablet 1 ea PO DAILY RF: 0 calcium carbonate [Calcium 500] 500 MG tablet 500 mg PO DAILY RF: 0 omega-3 fatty acids [Fish Oil] 500 MG capsule 500 mg PO DAILY RF: 0 acetaminophen [Tylenol] 325 MG tablet 650 mg PO Q6H PRN PRN (Reason: Pain) RF: 0 ibuprofen 600 MG tablet 600 mg PO Q6H PRN PRN (Reason: Pain) Qty: 0 RF: 0 lorazepam 0.5 MG tablet 0.5 mg PO Q6H PRN Qty: 14 RF: 0 polyethylene glycol 3350 255 GM powder 17 gm PO DAILY PRN (Reason: Constipation) Qty: 255 RF: 0 Discharge Instructions Additional Instructions: Activity: You may ambulate as tolerated. You should take short, frequent walks. You may move and position yourself without restrctions. You should use the walker for support for any mobilization. Medications: - You can use the Tylenol and Ibuprofen for baseline pain relief. - You also have the Lorazepam for pain and anxiety. - You will be taking Asprin 81mg twice a day for blood clot prevention 1. Encounter Date and Reason I certify that THEODORE RAYMUNDO was seen by Jose Bethea on 08/10/18 and that I had a [id number] encounter with this patient that meets the physician face to face encounter requirements. 2. Clinical Findings Supporting Skilled Need and Homebound Status I certify that home health services are medically necessary, include either intermittent nursing home and/or physical/speech therapy, and that this patient is homebound in that absences from the home require considerable and taxing effort and are infrequent or of short duration, or are attributable to the need to receive medical care. [X] (a) Attached documentation from encounter provides clinical findings supporting skilled need and homebound status (including what assistance patient requires to leave the home). The encounter with the patient was in whole, or in part, for the following medical condition, which is the primary reason for home health care: RIGHT INTERTROCHANTERIC HIP FRACTURE Longterm: Physical Therapy: PT is needed to help Holley with ambulation training using a walker and maneuvering in her home. She will require gait trainig and exercises to improve strength after right hip fracture repair. Speech Therapy: Homebound: Holley is homebound. She is unable to leave her home without assistance. She has significant deficits in strength and mobility that prevent her from leaving unassisted. 3. Certification and Authentication I certify that I composed the above information based on my clinical judgement relating to this patient's medical condition and, if applicable, clinical findings communicated to me by the NPP or inpatient physician who performed the Home Health Referral. All further orders will be obtained through Dr. Bethea Dressings: The initial dressings may stay in place for 1 week. They can get wet but sthouldn't be soaked. If they get soiled, soaked, or start to peel off , then they should be changed. You may replace th einitial dressings with dry gauze or band-aids. Followup: 2 weeks Activity:: Activity as Tolerated Equipment/Supplies:: Walker Discharge Orders Discharge Orders: Discharge Order (Routine); Ordered 08/10/18 Ordered By: Jose Bethea DS: Data Vitals/I&O Vitals and I&O: Vital Signs Temp 36.9 C 08/09/18 19:55 Pulse 77 08/09/18 19:55 Resp 18 08/09/18 19:55 BP 111/69 08/09/18 19:55 Pulse Ox 96 08/09/18 19:55 Intake & Output 08/08/18 08/09/18 08/09/18 23:59 11:59 23:59 Intake Total 240 / 240 1840 / 1840 1742 / 1742 Output Total 700 / 700 650 / 650 2099 / 2100 Balance -460 / -460 1190 / 1190 -358 / -358 Intake: IV 1050 / 1050 752 / 752 Oral 240 / 240 790 / 790 990 / 990 Output: Urine 700 / 700 650 / 650 2099 / 2099 Other: Urine Color Pale Yellow Yellow Yellow Urine Appearance Clear Clear Clear Stool Size Large Stool Characteristics Soft Formed Brown Emesis Description None Voiding Methods Bedside Commode Labs on day of discharge: Labs from last 24 hours 08/09/18 08/09/18 06:50 06:50 WBC 9.33 RBC 3.31 L Hgb 8.1 L Hct 25.7 L MCV 77.6 L MCH 24.5 L MCHC 31.5 L RDW 16.4 H Plt Count 353 D MPV 9.0 Sodium 138 Potassium 4.1 Chloride 103 Carbon Dioxide 27.1 Anion Gap 7.9 BUN 15 D Creatinine 0.80 Estimated GFR/1.73 m2 >= 60.00 Glucose 99 Calcium 8.6
[2018-08-10] MEDS: Ketorolac 15 MG/ML VIAL IVP (01:57)
[2018-08-10] MEDS: Normal Saline Flush 10 ML SYR IVP ×2 (02:18→08:02)
[2018-08-10 03:25] VITALS: BP 146/80; PULSE 61; RESP 18; TEMP 36.7; O2SAT 95
[2018-08-10] MEDS: traMADol 50 MG TAB PO ×2 (07:22→12:32)
[2018-08-10 07:40] VITALS: BP 154/102; PULSE 68; RESP 19; TEMP 36; O2SAT 97
[2018-08-10] MEDS: Chlorthalidone 25 MG TAB 12.5 MG PO (07:59)
[2018-08-10] MEDS: Acetaminophen 500 MG TAB 1000 MG PO ×2 (07:59→13:38)
[2018-08-10 08:01] LABS: HCT 25.2 % (36.0-46.0); HGB 7.8 g/dL (12.0-15.5); Mean Corpuscular Hemoglobin 24.3 pg (27.0-33.0); Mean Corpuscular Volume 78.5 fL (80-95); Mean Platelet Volume 9.7 fL (8.0-11.0); Platelet Count 364 x1000/uL (130-400); RBC 3.21 m/cumm (4.00-5.20); RBC Distribution Width 16.5 % (11.7-14.6); White Blood Cell Count 6.03 k/cumm (4.4-10.8)
[2018-08-10] MEDS: Losartan 50 MG TAB 100 MG PO (08:01)
[2018-08-10] MEDS: LORazepam 0.5 MG TAB PO (08:01)
[2018-08-10] MEDS: Enoxaparin 40 MG/0.4 ML SYR SC (08:03)
[2018-08-10 08:46] VITALS: BP 140/91
[2018-08-10 11:20] VITALS: BP 121/82; PULSE 88; RESP 18; TEMP 36.8; O2SAT 99
--- NOTE | 2018-08-10 13:24 | CMDISCH_ITS ---
- If Service Date Differs Date of service: 08/10/18 Time of Service: 13:22 LACE Index Scoring Tool - Questions: Length of Stay (in days): 4 - 6 Acuity (Admit via E.D.?): Yes E.D. Visits: 1 - Answers: Total Score: 8 Risk of Readmission: Low Risk Care Management Discharge Reason for Hospitalization: R hip fracture Discharge Plan: Emily will return home today with home health PT services. CM has contacted [facility] and left a VM on the referral line in regards to DC and services needed. Emily will F/U with Dr. Bethea and plan of care as prescribed. Her Jez will transport her home. Patient/Family Education Needs: Review DC instructions, any limitations, and discuss, Ask Me Three Services Needed at Discharge: Home Health Care Services (PT)
--- NOTE | 2018-08-10 13:47 | PT.INTREAT ---
Date of service: 08/10/18 Time of Service: 09:15 PT Notes Inpatient Physical Therapy Treatment Note Date: 08/10/18 PRECAUTIONS:WBAT on right and fall precautions SUBJECTIVE: Wants to go home but a little nervous about being able to get around. Likes to walk, feels like she is getting stiff if she is just lying in bed or sitting too long. OBJECTIVE: PAIN: Complained of tolerable discomfort if she applied a bit too much weight on right LE when ambulating. BED MOBILITY/TRANSFERS Up out of bed with nursing, but indicated she is able to get up and down out of bed independently if she moves slowly. Sit-stand: SBA Stand-sit: SBA GAIT Assistive Device: FWW Weight bearing: WBAT on right Assist: CG to SBA Distance: 80ft x 2 THEREX: Performed AP, LAQs, seated hip flexion and abd/add for 10 - 20 reps each. STAIRS: Up / down 3-4 inch and 2-6 inch steps today x 3 reps with handrails and SBA ASSESSMENT: Tolerated today's session well with good effort given. Appeared more confident with mobility after today's treatment. PLAN: Continue with current POC advancing ambulation distance and strengthening as she is able to tolerate, for improved functional mobility. Possibly going home today, will probably get out patient PT services. TREATMENT CODE/TIME: []
--- NOTE | 2018-08-12 08:10 | PT.INDS ---
Date of service: 08/12/18 Time of Service: 08:10 PT Notes Inpatient Physical Therapy Discharge Summary Date: 08/12/18 for 08/10/18 Dates of Service: 08/08/18-08/10/18 SUBJECTIVE: NT OBJECTIVE: 08/08/18-08/10/18 BED MOBILITY/TRANSFERS: Supine-sit: SBA Sit-stand: supervision Stand-sit: supervision Chair-bed: supervision Sit-supine: supervision GAIT: supervision with FWW [id number] , WBAT R LE. STAIRS up/down 15 steps with railing, supervision WBAT R LE BALANCE: Static sitting normal Dynamic Sitting normal Static Standing fair Dynamic Standing fair ASSESSMENT: Pt is a 62yr old female s/p right interamedullary nailing of right intertrochanteric femur fracture. Pt was seen for 4 PT visits. Progressed from Lyn[place] bed transfers to supervision, from SBA standing transfers to supervision, from SBA gait with FWW 5ft to supervision with FWW 150ft, able to ascend/descend 5 steps with railing supervision. Pt was discharged to home setting. GOALS 1. Supine-sit: independent 2. Sit-supine: indepdnent 3. Sit-stand: supervision with FWW 4. Stand-sit: supervision 5. Bed-chair: supervision with FWW 6. Chair-bed: supervision with FWW 7. Gait: supervision with FWW 100ft WBAT R LE 8. Up/down 10 steps with railing. SBA WBAT R LE Pt met goals # 3, 4, 5, 6, 7, 8 DISCHARGE RECOMMENDATIONS Home, has all DME G Codes in the area mobility of walking and moving around:projected status GP [id number]__[id number] . Discharge status (if discharging) GP [id number]___[id number]___ Liza Levin PT
--- NOTE | 2018-08-12 08:15 | INDS_ITS ---
Date of service: 08/12/18 Time of Service: 08:10 PT Notes Inpatient Physical Therapy Discharge Summary Date: 08/12/18 for 08/10/18 Dates of Service: 08/08/18-08/10/18 SUBJECTIVE: NT OBJECTIVE: 08/08/18-08/10/18 BED MOBILITY/TRANSFERS: Supine-sit: SBA Sit-stand: supervision Stand-sit: supervision Chair-bed: supervision Sit-supine: supervision GAIT: supervision with FWW [id number] , WBAT R LE. STAIRS up/down 15 steps with railing, supervision WBAT R LE BALANCE: Static sitting normal Dynamic Sitting normal Static Standing fair Dynamic Standing fair ASSESSMENT: Pt is a 62yr old female s/p right interamedullary nailing of right intertrochanteric femur fracture. Pt was seen for 4 PT visits. Progressed from Lyn[place] bed transfers to supervision, from SBA standing transfers to supervision, from SBA gait with FWW 5ft to supervision with FWW 150ft, able to ascend/descend 5 steps with railing supervision. Pt was discharged to home setting. GOALS 1. Supine-sit: independent 2. Sit-supine: indepdnent 3. Sit-stand: supervision with FWW 4. Stand-sit: supervision 5. Bed-chair: supervision with FWW 6. Chair-bed: supervision with FWW 7. Gait: supervision with FWW 100ft WBAT R LE 8. Up/down 10 steps with railing. SBA WBAT R LE Pt met goals # 3, 4, 5, 6, 7, 8 DISCHARGE RECOMMENDATIONS Home, has all DME G Codes in the area mobility of walking and moving around:projected status GP [id number]__[id number] . Discharge status (if discharging) GP [id number]___[id number]___ Liza Levin PT
== END 2018-08-10 13:40 | disposition home or self-care (01) | DRG 481 ==
LOC: ER 17:01 → MS 19:40
PROVIDERS: Admitting Provider Student in an Organized Health Care Education/Training Program; Emergency Provider Physician Assistant; PCP Family Medicine; Visit Provider Student in an Organized Health Care Education/Training Program
PROC: 0QS606Z Reposition Right Upper Femur with Intramedullary Internal Fixation Device, Open Approach (ICD-10-PCS; CPT 27245; principal; 2018-08-08 11:15)
DX: S72.144A Nondisplaced intertrochanteric fracture of right femur, initial encounter for closed fracture (principal); C18.9 Malignant neoplasm of colon, unspecified; W01.198A Fall on same level from slipping, tripping and stumbling with subsequent striking against other object, initial encounter; Z90.49 Acquired absence of other specified parts of digestive tract; I10 Essential (primary) hypertension; F41.9 Anxiety disorder, unspecified; Z87.891 Personal history of nicotine dependence; D64.9 Anemia, unspecified
CPT/HCPCS: 27245; 36415; 76000; 80048; 85027; 86850; 86900; 86901; 97110; 97162; 97530; 99238; 99253; 99285; J1650; NC; 73501; 73502; 99284; J0690; J1100; J1885; J2250; J2370; J2405; J3010

== ENCOUNTER 2018-08-23 09:12 | Outpatient (CLI) | payer BC, SELFPAY ==
--- NOTE | 2018-08-23 09:09 | DI.RAD_ITS ---
SYMPTOM/DIAGNOSIS: S/P ORIF RT HIP RIGHT HIP: Two views. Comparison is made with . There is again seen an intramedullary tripp transfixing the intertrochanteric fracture of the right femur. No change in alignment of the orthopedic hardware or fracture is noted. The soft tissues are unremarkable.
== END 2018-08-23 09:32 ==
PROVIDERS: PCP Family Medicine; Visit Provider Physician Assistant
DX: S72.144D Nondisplaced intertrochanteric fracture of right femur, subsequent encounter for closed fracture with routine healing (principal)
CPT/HCPCS: 73502

== ENCOUNTER 2018-09-25 11:59 | Outpatient (CLI) | payer BC, SELFPAY ==
--- NOTE | 2018-09-25 11:51 | DI.RAD_ITS ---
SYMPTOM/DIAGNOSIS: F/U RT FEMUR IMN RIGHT HIP: When compared with the previous examination, again noted is a gamma nail in position for fixation of a nondisplaced intertrochanteric fracture. There has been no interval change when compared with previous images of 08/23/18.
== END 2018-09-25 12:19 ==
PROVIDERS: PCP Family Medicine; Visit Provider Student in an Organized Health Care Education/Training Program
DX: S72.144D Nondisplaced intertrochanteric fracture of right femur, subsequent encounter for closed fracture with routine healing (principal)
CPT/HCPCS: 73502

== ENCOUNTER 2018-10-15 08:40 | Outpatient (CLI) | payer BC, SELFPAY ==
[2018-10-15 09:57] LABS: Iron 15 ug/dL (50-175); Total Iron Binding Capacity 410 ug/dL (250-450); Transferrin Sat 4 % (15-50)
[2018-10-15 10:22] LABS: Vitamin B12 763 pg/mL (193-986)
== END 2018-10-15 09:00 ==
PROVIDERS: PCP Family Medicine; Visit Provider Family Medicine
DX: D50.0 Iron deficiency anemia secondary to blood loss (chronic) (principal); C18.9 Malignant neoplasm of colon, unspecified
CPT/HCPCS: 36415; 82607; 83540; 83550

== ENCOUNTER 2018-10-25 11:12 | Outpatient (CLI) | payer BC, SELFPAY ==
[2018-10-25 11:28] LABS: Absolute Basophil Count 0.03 k/cumm (0.0-0.2); Absolute Eosinophil Count 0.06 k/cumm (0.0-0.7); Absolute Lymphocyte Count 2.53 k/cumm (1.2-3.4); Absolute Monocyte Count 0.46 k/cumm (0.11-0.7); Absolute Neutrophil Count 2.64 k/cumm (1.2-6.7); Basophils % 0.5; HCT 31.3 % (36.0-46.0); HGB 9.8 g/dL (12.0-15.5); Lymphocytes % 44.2; Mean Corp. HGB Concentration 31.3 g/dL (32.0-36.0); Mean Corpuscular Hemoglobin 23.2 pg (27.0-33.0); Mean Platelet Volume 8.8 fL (8.0-11.0); Neutrophils % 46.3; Platelet Count 453 x1000/uL (130-400); RBC 4.23 m/cumm (4.00-5.20); RBC Distribution Width 17.2 % (11.7-14.6); White Blood Cell Count 5.72 k/cumm (4.4-10.8)
[2018-10-25 11:44] LABS: Anisocytosis 1+; Diff Comment RBC Morph Reviewed; Hypochromasia 2+; Microcytosis 2+; Poikilocytes 1+
[2018-10-25 11:46] LABS: ALT 25 U/L (12-78); AST 21 U/L (15-37); Albumin 3.9 g/dL (3.4-5.0); Alkaline Phosphatase 93 U/L (46-116); BUN 21 mg/dL (7-18); Bilirubin, Total 0.7 mg/dL (0.2-1.0); Chloride 99 mmol/L (98-107); Glucose 99 mg/dL (70-100); Potassium 3.6 mmol/L (3.5-5.1); Sodium 138 mmol/L (136-145); Total Protein 8.1 g/dL (6.4-8.2)
[2018-10-28 10:22] LABS: CEA 2.3 ng/ml
== END 2018-10-25 11:32 ==
PROVIDERS: PCP Family Medicine; Visit Provider Internal Medicine Hematology & Oncology
DX: C18.2 Malignant neoplasm of ascending colon (principal)
CPT/HCPCS: 36415; 80053; 82378; 85025

== ENCOUNTER 2018-11-07 08:39 | Day surgery (SDC) | payer BC, SELFPAY ==
--- NOTE | 2018-11-07 06:57 | ENDO_ITS ---
Date of service: 11/07/18 Time of Service: : Endoscopy Report DATE OF PROCEDURE: 11/07/18 PRE-OP DIAGNOSIS: Hx. of Colon Cancer/ Anemia POST-OP DIAGNOSIS: other (Gastritis, Gastric ulcer, sigmoid polyps) PROCEDURE: 1. EGD with bx 2. Colonoscopy with polypectomy SURGEON: Mayra Dela Cruz ANESTHESIA: MAC (Vee cardenas, DEAL ARCHITECT /ASA 3) ESTIMATED BLOOD LOSS: 5 PATHOLOGY: other (Bx of gastric ulcer, bx of stomach, sigmoid polypsx4, anastamotic bx) COMPLICATIONS: None DISPOSITION: same day INDICATIONS: Mrs. Miles is a pleasant 63-year-old female who was diagnosed with cecal cancer about 6 months ago she is back to have a colonoscopy done. She is also been anemic and her oncologist requested that we also do an upper endoscopy. Risks, benefits and complications of both the upper and lower endoscopies were reviewed with her and she wished to proceed. No guarantees were given or implied. PREP: Miralax/Dulcolax PROCEDURE START TIME: : PROCEDURE END TIME: 11:03 COLONOSCOPY RETRACTION TIME: 18 minutes FINDINGS: Upper endoscopy- There was a healing gastric ulcer just to the side of the pylorus. There was mild to moderate inflammation of the antrum. There was mild inflammation at the GE junction. Colonoscopy: anastamosis was intact, and well healed. There was some tissue that I couldn't tell whether it was the start of a flat polyp or not so I did some biopsies. There were 4 flat polyps in the sigmoid colon that were removed. Internal hemorrhoids wwere also noted. PROCEDURE DESCRIPTION: After informed consent was obtained the patient was take to the procedure room and placed in a supine position. Monitors were applied and a time out was done. The patients name, date of , procedure type, allergies to medications and metal in their body was reviewed. A bite block was placed and the patient was sedated. Once sedated and comfortable the gastroscope was advanced through the oropharynx which was grossly normal into the esophagus. The proximal and mid-esophagus were normal. In the distal esophagus there was mild inflammation noted. The scope was advanced into the stomach and through the pylorus into the 3rd portion of the duodenum. The duodenum was noted to be normal. The scope was retracted back into the stomach and biopsies were done to rule out H. pylori. There was one ulcer noted adjacent to the pylorus. A biopsy was done of the ulcer. The scope was retro- flexed. The cardia and fundus were noted to be normal. There was no hiatal hernia noted. The scope was retracted back into the esophagus and biopsies were done of the GE junction to rule out Lilly's. The Z line was regular. The GE junction was at 35 cm. While the patient was still sedated they were placed in a left decubitous position. A rectal exam was done. External exam was normal. Internal exam revealed a normal sphincter tone and no palpable masses. The scope was then introduced and retro-flexed. Grade 1 internal hemorrhoids were identified. The scope was then advanced to the anastamosis without difficulty. A biopsy was done at the anastamosis. The prep was adequate. The scope was then slowly retracted over 18 minutes back into the rectum. 4 small flat polyps were noted and removed. The scope was removed and the patient was woken up and taken back to Same day surgery in stable condition. The patient tolerated the procedure well and there were no immediate complications. Follow up: 3-4 weeks in the office.
--- NOTE | 2018-11-07 06:57 | W.PM.DSUDISC ---
Discharge Plan Disposition Patient Disposition: HOME Condition: Good Discharge Details Reason For Visit: HX OF COLON CA,ANEMIA Attending Provider: Mayra Dela Cruz Primary Care Provider: Alec Neff Home Meds and New Rx's Prescriptions: Continued multivitamin [Daily Multi-Vitamin] 1 EACH tablet 1 ea PO DAILY RF: 0 calcium carbonate [Calcium 500] 500 MG tablet 500 mg PO DAILY RF: 0 Fish Oil 500 MG capsule 500 mg PO DAILY RF: 0 tramadol 50 mg tablet 50 mg PO Q6H PRN PRN (Reason: Pain) Qty: 10 RF: 0 losartan 50 mg Tablet 100 mg PO QAM Qty: 0 RF: 0 chlorthalidone 25 mg Tablet 12.5 mg PO DAILY Qty: 0 RF: 0 acetaminophen [Mapap Extra Strength] 500 mg Tablet 1,000 mg PO TID Qty: 100 RF: 0 ibuprofen [IBU] 600 mg Tablet 600 mg PO TID PRN (Reason: Pain) Qty: 90 RF: 3 potassium 99 mg Tablet RF: 0 acetaminophen [Tylenol] 325 MG tablet 650 mg PO Q6H PRN PRN (Reason: Pain) RF: 0 Discharge Instructions Instructions: Colonoscopy (DC), Upper Endoscopy (DC) Additional Instructions: Findings: Stomach ulcer and inflammation of the stomach Polyps in the sigmoid colon Follow up:1 year for your next Colonoscopy Please call if you develop: fevers >101.5 Nausea or Vomiting Abdominal pain that is not transient DAY SURGERY UNIT POST COLONOSCOPY INSTRUCTIONS 1. Because there will be medication in your system for the next 24 hours, you may feel a little sleepy. Your coordination will be affected. Therefore: a. Do not drive or operate dangerous equipment for 24 hours. b. Do not drink alcohol beverages for 24 hours (not even beer). c. Plan to go home and rest for the day. 2. Generally there are no restrictions on your activity after a day or so has gone by, but you may feel a bit fatigued for a few days. 3 After you arrive home you may have a light meal and return to a normal diet as you can tolerate it without feeling sick to your stomach. 4. After surgery, you may feel pain or discomfort. This should be only transient, but if it persists please contact your doctor. 5. If there are any questions regarding the findings of your procedure, please feel free to contact your doctor. 6. If you are unable to contact your doctor with a problem, contact the hospital at [phone]. 8. Continue all your regular medications unless directed otherwise. I understand the above instructions and have no questions. Signature of Patient or Responsible Adult Escort Date/Time Name of Responsible Adult Escort Signature of Nurse Date/Time Activity:: Activity as Tolerated Diet:: As Tolerated Discharge Orders Discharge Orders: Discharge Order (Routine); Ordered 11/07/18 Ordered By: Mayra Dela Cruz DS: Diagnosis Discharge Diagnosis (1) Hx of malignant neoplasm of colon: Status: Resolved (2) Anemia: Status: Chronic (3) H/O esophagogastroduodenoscopy: Status: Chronic (4) H/O colonoscopy: Status: Chronic
[2018-11-07 08:54] VITALS: BP 137/94; PULSE 81; RESP 18; TEMP 36.5; O2SAT 100
[2018-11-07 09:05] VITALS: BP 137/94; PULSE 81; RESP 18; TEMP 36.5; O2SAT 100
[2018-11-07] MEDS: Lactated Ringers 1,000 ML 80 ML IV ×2 (09:20→10:56)
[2018-11-07] MEDS: Lidocaine 2% Viscous 15 ML CUP (10:20)
--- NOTE | 2018-11-07 10:31 | STOM_PTH ---
PATIENT: Emily Miles LOC: [facility] U#:[id number] AGE/SX: 63/F ROOM: RE11/07/[address]: Mayra Dela Cruz MD : 1955 BED: DIS: 11/07/2018 SPEC #: [id number] RECD: 11/07/18 12:49 STATUS: DELORES REQ #: [id number] JAMES: 11/07/18 10:[address]: Mayra Dela Cruz DEPT: Surgical Specimen RECD BY: Arabella Jacobo ENTERED: 11/07/18 12:51 SP TYPE: STOMACH OTHR DR: Alec Neff Tissues: 1 - STOMACH BIOPSY 2 - STOMACH BIOPSY 3 - ESOPHAGUS BIOPSY 4 - BIOPSY BOWEL 5 - BIOPSY BOWEL Procedures: GROSS AND MICRO LEVEL 4 Comments: [id number]
[2018-11-07 11:30] VITALS: BP 133/82; PULSE 74; RESP 16; TEMP 36; O2SAT 100
--- NOTE | 2018-11-07 11:31 | PDOC.DSDIS_ITS ---
Discharge Plan Disposition Patient Disposition: HOME Condition: Good Discharge Details Reason For Visit: HX OF COLON CA,ANEMIA Attending Provider: Mayra Dela Cruz Primary Care Provider: Alec Neff Home Meds and New Rx's Prescriptions: New omeprazole 20 mg capsule,delayed release(DR/EC) 20 mg PO DAILY Qty: 30 RF: 2 Continued multivitamin [Daily Multi-Vitamin] 1 EACH tablet 1 ea PO DAILY RF: 0 calcium carbonate [Calcium 500] 500 MG tablet 500 mg PO DAILY RF: 0 Fish Oil 500 MG capsule 500 mg PO DAILY RF: 0 tramadol 50 mg tablet 50 mg PO Q6H PRN PRN (Reason: Pain) Qty: 10 RF: 0 losartan 50 mg Tablet 100 mg PO QAM Qty: 0 RF: 0 chlorthalidone 25 mg Tablet 12.5 mg PO DAILY Qty: 0 RF: 0 acetaminophen [Mapap Extra Strength] 500 mg Tablet 1,000 mg PO TID Qty: 100 RF: 0 ibuprofen [IBU] 600 mg Tablet 600 mg PO TID PRN (Reason: Pain) Qty: 90 RF: 3 potassium 99 mg Tablet RF: 0 acetaminophen [Tylenol] 325 MG tablet 650 mg PO Q6H PRN PRN (Reason: Pain) RF: 0 Discharge Instructions Instructions: Colonoscopy (DC), Upper Endoscopy (DC), Diet for Stomach Ulcers and Gastritis (GEN), Gastritis (DC), Peptic Ulcer (DC) Additional Instructions: Findings: Stomach ulcer and inflammation of the stomach Polyps in the sigmoid colon Follow up:1 year for your next Colonoscopy Please call if you develop: fevers >101.5 Nausea or Vomiting Abdominal pain that is not transient DAY SURGERY UNIT POST COLONOSCOPY INSTRUCTIONS 1. Because there will be medication in your system for the next 24 hours, you may feel a little sleepy. Your coordination will be affected. Therefore: a. Do not drive or operate dangerous equipment for 24 hours. b. Do not drink alcohol beverages for 24 hours (not even beer). c. Plan to go home and rest for the day. 2. Generally there are no restrictions on your activity after a day or so has gone by, but you may feel a bit fatigued for a few days. 3 After you arrive home you may have a light meal and return to a normal diet as you can tolerate it without feeling sick to your stomach. 4. After surgery, you may feel pain or discomfort. This should be only transient, but if it persists please contact your doctor. 5. If there are any questions regarding the findings of your procedure, please feel free to contact your doctor. 6. If you are unable to contact your doctor with a problem, contact the hospital at [phone]. 7. Continue all your regular medications unless directed otherwise. I understand the above instructions and have no questions. Signature of Patient or Responsible Adult Escort Date/Time Name of Responsible Adult Escort Signature of Nurse Date/Time Stand Alone Forms: Nichole Unger (DSU) Referrals: Mayra Dela Cruz MD [ [facility] STAFF PHYSICIAN] - (3-4 weeks) Activity:: Activity as Tolerated Diet:: As Tolerated Discharge Orders Discharge Orders: Discharge Order (Routine); Ordered 11/07/18 Ordered By: Mayra Dela Cruz
== END 2018-11-07 12:13 | disposition home or self-care (01) ==
LOC: SUR 08:40
PROVIDERS: PCP Family Medicine; Visit Provider Surgery
PROC: (CPT 45380; principal; 2018-11-07 09:15)
DX: Z85.038 Personal history of other malignant neoplasm of large intestine (principal); K63.5 Polyp of colon; K64.0 First degree hemorrhoids; Z90.49 Acquired absence of other specified parts of digestive tract; D50.9 Iron deficiency anemia, unspecified; K29.00 Acute gastritis without bleeding; K31.89 Other diseases of stomach and duodenum; K21.0 Gastro-esophageal reflux disease with esophagitis; I10 Essential (primary) hypertension
CPT/HCPCS: 45380; 43239; 88305; J2250

== ENCOUNTER 2019-01-09 10:19 | Outpatient (CLI) | payer BC, SELFPAY ==
[2019-01-09 10:48] LABS: Abs Immature Grans 0.01 k/cumm (0.0-0.09); Absolute Basophil Count 0.03 k/cumm (0.0-0.2); Absolute Eosinophil Count 0.05 k/cumm (0.0-0.7); Absolute Lymphocyte Count 2.12 k/cumm (1.2-3.4); Absolute Monocyte Count 0.47 k/cumm (0.11-0.7); Absolute Neutrophil Count 1.82 k/cumm (1.2-6.7); Basophils % 0.7; Eosinophils % 1.1; HCT 31.4 % (36.0-46.0); HGB 9.9 g/dL (12.0-15.5); Immature Grans % 0.2; Lymphocytes % 47.1; Mean Corp. HGB Concentration 31.5 g/dL (32.0-36.0); Mean Corpuscular Hemoglobin 22.8 pg (27.0-33.0); Mean Corpuscular Volume 72.2 fL (80-95); Monocytes % 10.4; Neutrophils % 40.5; Platelet Count 414 x1000/uL (130-400); RBC 4.35 m/cumm (4.00-5.20)
[2019-01-09 11:07] LABS: ALT 20 U/L (12-78); AST 19 U/L (15-37); Albumin 3.4 g/dL (3.4-5.0); Alkaline Phosphatase 85 U/L (46-116); Anion Gap 8.2 mmol/L (3-11); BUN 19 mg/dL (7-18); Bilirubin, Total 0.6 mg/dL (0.2-1.0); CO2 29.8 mmol/L (21.0-32.0); CREATININE 0.85 mg/dL (0.55-1.02); Chloride 101 mmol/L (98-107); Glucose 92 mg/dL (70-100); Potassium 3.9 mmol/L (3.5-5.1); Sodium 139 mmol/L (136-145); Total Protein 7.9 g/dL (6.4-8.2)
[2019-01-09 11:12] LABS: Anisocytosis 2+; Diff Comment RBC Morph Reviewed; Hypochromasia 2+; Microcytosis 2+; Polychromasia Present
[2019-01-09 11:13] LABS: Poikilocytes 1+
[2019-01-10 10:34] LABS: CEA 2.3 ng/ml
== END 2019-01-09 10:39 ==
PROVIDERS: PCP Family Medicine; Visit Provider Internal Medicine Hematology & Oncology
DX: C18.2 Malignant neoplasm of ascending colon (principal)
CPT/HCPCS: 36415; 80053; 82378; 85025

== ENCOUNTER 2019-04-22 09:15 | Outpatient (CLI) | payer BC, SELFPAY ==
[2019-04-22 09:50] LABS: Absolute Basophil Count 0.05 k/cumm (0.0-0.2); Absolute Eosinophil Count 0.07 k/cumm (0.0-0.7); Absolute Lymphocyte Count 1.92 k/cumm (1.2-3.4); Absolute Monocyte Count 0.37 k/cumm (0.11-0.7); Absolute Neutrophil Count 1.84 k/cumm (1.2-6.7); Basophils % 1.2; Eosinophils % 1.6; HCT 34.4 % (36.0-46.0); Lymphocytes % 45.2; Mean Corpuscular Hemoglobin 24.2 pg (27.0-33.0); Mean Corpuscular Volume 75.6 fL (80-95); Mean Platelet Volume 8.9 fL (8.0-11.0); Monocytes % 8.7; Neutrophils % 43.3; Platelet Count 406 x1000/uL (130-400); RBC 4.55 m/cumm (4.00-5.20); RBC Distribution Width 18.9 % (11.7-14.6); White Blood Cell Count 4.25 k/cumm (4.4-10.8)
[2019-04-22 10:02] LABS: ALT 24 U/L (12-78); AST 19 U/L (15-37); Albumin 3.5 g/dL (3.4-5.0); Alkaline Phosphatase 80 U/L (46-116); Anion Gap 8.6 mmol/L (3-11); BUN 20 mg/dL (7-18); Bilirubin, Total 0.7 mg/dL (0.2-1.0); CO2 28.4 mmol/L (21.0-32.0); CREATININE 0.91 mg/dL (0.55-1.02); Calcium 8.6 mg/dL (8.5-10.1); Chloride 101 mmol/L (98-107); Glucose 96 mg/dL (70-100); Potassium 3.7 mmol/L (3.5-5.1); Sodium 138 mmol/L (136-145); Total Protein 7.8 g/dL (6.4-8.2)
[2019-04-23 12:37] LABS: CEA 2.9 ng/ml
== END 2019-04-22 09:35 ==
PROVIDERS: PCP Family Medicine; Visit Provider Internal Medicine Hematology & Oncology
DX: C18.2 Malignant neoplasm of ascending colon (principal)
CPT/HCPCS: 36415; 80053; 82378; 85025

== ENCOUNTER 2019-12-08 10:52 | Outpatient (CLI) | payer MEDICARE, BC, OTHER, SELFPAY ==
[2019-12-08 11:44] LABS: Abs Immature Grans 0.01 k/cumm (0.0-0.09); Absolute Basophil Count 0.03 k/cumm (0.0-0.2); Absolute Eosinophil Count 0.07 k/cumm (0.0-0.7); Absolute Monocyte Count 0.37 k/cumm (0.11-0.7); Absolute Neutrophil Count 2.23 k/cumm (1.2-6.7); Basophils % 0.6; Eosinophils % 1.4; HGB 13.3 g/dL (12.0-15.5); Immature Grans % 0.2 %; Lymphocytes % 44.8; Mean Corp. HGB Concentration 33.3 g/dL (32.0-36.0); Mean Corpuscular Hemoglobin 28.7 pg (27.0-33.0); Mean Corpuscular Volume 86.2 fL (80-95); Mean Platelet Volume 9.7 fL (8.0-11.0); Monocytes % 7.5; Neutrophils % 45.5; Platelet Count 349 x1000/uL (130-400); RBC 4.64 m/cumm (4.00-5.20); White Blood Cell Count 4.91 k/cumm (4.4-10.8)
[2019-12-08 12:43] LABS: ALT 25 U/L (14-59); AST 24 U/L (15-37); Albumin 3.9 g/dL (3.4-5.0); Alkaline Phosphatase 72 U/L (46-116); Anion Gap 9.3 mmol/L (3-11); BUN 18 mg/dL (7-18); Bilirubin, Total 0.7 mg/dL (0.2-1.0); CO2 28.7 mmol/L (21.0-32.0); CREATININE 0.71 mg/dL (0.55-1.02); Chloride 102 mmol/L (98-107); Glucose 96 mg/dL (74-106); Potassium 4.1 mmol/L (3.5-5.1); Sodium 140 mmol/L (136-145); Total Protein 7.3 g/dL (6.4-8.2)
[2019-12-08 14:01] LABS: Vitamin B12 585 pg/mL (193-986)
[2019-12-08 15:05] LABS: Iron 53 ug/dL (50-170); Total Iron Binding Capacity 349 ug/dL (250-450); Transferrin Sat 15 % (15-50)
== END 2019-12-08 11:12 ==
PROVIDERS: Internal Medicine Hematology & Oncology; PCP Family Medicine; Visit Provider Family Medicine
DX: D50.9 Iron deficiency anemia, unspecified (principal); C18.2 Malignant neoplasm of ascending colon
CPT/HCPCS: 36415; 80053; 82378; 82607; 83540; 83550; 85025

== ENCOUNTER → 2019-12-11 12:48 | Outpatient (BNVA) | payer MEDICARE, BC, OTHER, SELFPAY | PROVIDERS: PCP Family Medicine; Referring Provider Family Medicine; Visit Provider Physical Therapy Assistant | DX: Z85.038 Personal history of other malignant neoplasm of large intestine (principal); K29.70 Gastritis, unspecified, without bleeding | CPT/HCPCS: 99213 ==

== ENCOUNTER 2019-12-22 09:24 | Day surgery (SDC) | payer MEDICARE, BC, SELFPAY ==
--- NOTE | 2019-12-22 06:45 | ENDO_ITS ---
Date of service: 12/22/19 Time of Service: 10:48 Endoscopy Report DATE OF PROCEDURE: 12/22/19 PRE-OP DIAGNOSIS: Hx of colon cancer, Hx of PUD POST-OP DIAGNOSIS: other (esophagitis, colorectal polyps, internal hemorrhoids) PROCEDURE: 1. EGD with biopsies 2. Colonoscopy with polypectomy SURGEON: Mayra Dela Cruz ANESTHESIA: other (General/ ASA 2/ Yimi Alena, BRICKLAYER SEWER) ESTIMATED BLOOD LOSS: 5 PATHOLOGY: other (GE junction bx, Transverse polyp, sigmoid polyp, internal hemorrhoid ) COMPLICATIONS: None DISPOSITION: same day INDICATIONS: The patient is here for Colonoscopy pre-op. Her last screening was in 2018 and was remarkable for reactive changes around the anastomosis and a single hyperplastic polyp. She has no family history of colon cancer. She has not had any bowel habit changes. -Discussed colonoscopy bowel prep as well as the procedure. Discussed possible complications of the procedure to include bleeding, pain, perforation, missed small lesion/polyp, sore throat, aspiration and adverse reaction to the medi cations. Questions were answered to patient?s satisfaction. No guarantees were implied or given. (2) Gastritis: -Discussed Upper endoscopy procedure and the need to be NPO after midnight the night prior. Discussed possible complications of the procedure to include bleeding, pain, perforation, missed small lesion/polyp/ulcers, sore throat, aspiration and adverse reaction to the medications or sedation. Questions were answered to patients satisfaction. No guarantees were implied or given. Last EGD was performed in 2018, which showed erosive gastritis and small shallow ulcers with recommendation for repeat EGD in 1 year. PREP: Miralax/Dulcolax PROCEDURE START TIME: 10:48 PROCEDURE END TIME: 11:30 COLONOSCOPY RETRACTION TIME: 24 minutes FINDINGS: Upper scope- mild inflammation of the esophagus Colonoscopy- 2 polyps and Grade 2 internal hemorrhoids One Grade 3 hemorrhoid removed with a hot snore PROCEDURE DESCRIPTION: After informed consent was obtained the patient was take to the procedure room and placed in a supine position. Monitors were applied and a time out was done. The patients name, date of , procedure type, allergies to medications and metal in their body was reviewed. A bite block was placed and the patient was sedated. Once sedated and comfortable the gastroscope was advanced through the oropharynx which was grossly normal into the esophagus. The proximal and mid- esophagus were normal. In the distal esophagus there was mild inflammation noted. The scope was advanced into the stomach and through the pylorus into the 3rd portion of the duodenum. The duodenum was noted to be normal. The scope was retracted back into the stomach. NO ulcers were noted. There was no inflammation. The scope was retro-flexed. The cardia and fundus were noted to be normal. There was no hiatal hernia noted. The scope was retracted back into the esophagus and biopsies were done of the GE junction to rule out Lilly's. The Z line was regular. The GE junction was at 40 cm. While the patient was still sedated they were placed in a left decubitous position. A rectal exam was done. External exam was normal. Internal exam revealed a normal sphincter tone and no palpable masses. The scope was then introduced and retro-flexed. Grade 2 internal hemorrhoids were identified. There was also a Grade 3 hemorrhoid noted. The scope was then advanced to the Ileo-transverse colon anastamosis without difficulty. Her colon was twisted in 2 areas like a corkscrew. The anastamosis was identified. There were no masses along the anastamosis. The prep was good. The scope was then slowly retracted over 24 minutes back into the rectum. There was one polyp in the Transverse colon that was removed with cold forceps and one polyp was rem flip in the sigmoid colon with cold forceps. Once in the rectum the scope was again retro-flexed and I tried to band the pedunculated hemorrhoid but I could not suction the larger hemorrhoid into the [place]. A hot snare was then used to remove the hemorrhoid and it was sent for pathology. The scope was removed and the patient was woken up and taken back to Same day surgery in stable condition. The patient tolerated the procedure well and there were no immediate complications. Follow up: Depends on final pathology results.
--- NOTE | 2019-12-22 06:47 | W.PM.DSUDISC ---
Discharge Plan Disposition Patient Disposition: HOME Condition: Good Discharge Details Reason For Visit: Hx of colon cancer, Hx of PUD Attending Provider: Mayra Dela Cruz Primary Care Provider: Alec Neff Home Meds and New Rx's Prescriptions: Continued lorazepam 0.5 mg tablet 0.5 mg PO PRN PRNRF: 0 multivitamin [Daily Multi-Vitamin] 1 EACH tablet 1 ea PO DAILY RF: 0 calcium carbonate [Calcium 500] 500 MG tablet 500 mg PO DAILY RF: 0 Fish Oil 500 MG capsule 500 mg PO DAILY RF: 0 losartan 50 mg Tablet 100 mg PO QAM Qty: 0 RF: 0 chlorthalidone 25 mg Tablet 12.5 mg PO DAILY Qty: 0 RF: 0 Discharge Instructions Additional Instructions: Findings: 1. Inflammation at the junction of the esophagus and stomach 2. 2 polyps 3. Internal hemorrhoids Follow up: depends on pathology report Please call if you develop: fevers >101.5 Nausea or Vomiting Abdominal pain that is not transient DAY SURGERY UNIT POST ENDOSCOPY INSTRUCTIONS 1. Because there will be medication in your system for the next 24 hours, you may feel a little sleepy. Your coordination will be affected. Therefore: a. Do not drive or operate dangerous equipment for 24 hours. b. Do not drink alcohol beverages for 24 hours (not even beer). c. Plan to go home and rest for the day. 2. Generally there are no restrictions on your activity after a day or so has gone by, but you may feel a bit fatigued for a few days. 3 After you arrive home you may have a light meal and return to a normal diet as you can tolerate it without feeling sick to your stomach. 4. After surgery, you may feel pain or discomfort. This should be only transient, but if it persists please contact your doctor. 5. If there are any questions regarding the findings of your procedure, please feel free to contact your doctor. 6. If you are unable to contact your doctor with a problem, contact the hospital at [phone]. 7. Continue all your regular medications unless directed otherwise. I understand the above instructions and have no questions. Signature of Patient or Responsible Adult Escort Date/Time Name of Responsible Adult Escort Signature of Nurse Date/Time Activity:: Activity as Tolerated Diet:: As Tolerated Discharge Orders Discharge Orders: Discharge Order (Routine); Ordered 12/22/19 Ordered By: Mayra Dela Cruz DS: Diagnosis Discharge Diagnosis (1) Internal hemorrhoids without complication: Status: Acute (2) Esophagitis determined by endoscopy: Status: Acute
[2019-12-22 09:41] VITALS: BP 141/91; PULSE 64; RESP 16; TEMP 36.5; O2SAT 98
[2019-12-22] MEDS: Lactated Ringers 1,000 ML 80 ML IV (09:59)
--- NOTE | 2019-12-22 10:52 | BOWEL_PTH ---
PATIENT: Emily Miles LOC: [facility] U#:[id number] AGE/SX: 64/F ROOM: RE12/22/[address]: Mayra Dela Cruz MD : 1955 BED: DIS: 12/22/2019 SPEC #: [id number] RECD: 12/22/19 12:49 STATUS: DELORES REQ #: [id number] JAMES: 12/22/19 10:[address]: Mayra Dela Cruz DEPT: Surgical Specimen RECD BY: Arabella Jacobo ENTERED: 12/22/19 12:52 SP TYPE: Bowel OTHR DR: Alec Neff Tissues: 1 - ESOPHAGUS BIOPSY 2 - BIOPSY BOWEL 3 - BIOPSY BOWEL 4 - HEMORRHOIDS Procedures: GROSS AND MICRO LEVEL 4 GROSS AND MICRO LEVEL 3 Comments: [id number]
[2019-12-22 12:01] VITALS: BP 152/86; PULSE 60; RESP 16; TEMP 36.5; O2SAT 97
== END 2019-12-22 12:15 | disposition home or self-care (01) ==
PROVIDERS: PCP Family Medicine; Visit Provider Surgery
PROC: (CPT 45385; principal; 2019-12-22 10:30)
DX: Z12.11 Encounter for screening for malignant neoplasm of colon (principal); Z85.038 Personal history of other malignant neoplasm of large intestine; Z87.19 Personal history of other diseases of the digestive system; K22.70 Barrett's esophagus without dysplasia; D12.3 Benign neoplasm of transverse colon; K63.5 Polyp of colon; K64.2 Third degree hemorrhoids; K64.1 Second degree hemorrhoids; K20.9 Esophagitis, unspecified; Z98.0 Intestinal bypass and anastomosis status; K29.70 Gastritis, unspecified, without bleeding; I10 Essential (primary) hypertension
CPT/HCPCS: 45385; 45380; 43239; 88305; 88304

== ENCOUNTER → 2020-04-30 10:30 | Outpatient (BNVA) | payer MEDICARE, BC, SELFPAY | PROVIDERS: PCP Family Medicine; Referring Provider Family Medicine; Visit Provider Student in an Organized Health Care Education/Training Program | DX: M70.71 Other bursitis of hip, right hip (principal); Z47.89 Encounter for other orthopedic aftercare; Z87.81 Personal history of (healed) traumatic fracture; M76.891 Other specified enthesopathies of right lower limb, excluding foot; I10 Essential (primary) hypertension | CPT/HCPCS: 99213 ==

== ENCOUNTER 2020-07-01 03:17 | Outpatient (CLI) | payer MEDICARE, BC, SELFPAY ==
[2020-07-01 10:10] LABS: Abs Immature Grans 0.01 10^3/uL (0.0-0.06); Absolute Basophil Count 0.04 10^3/uL (0.0-0.2); Absolute Eosinophil Count 0.06 10^3/uL (0.0-0.7); Absolute Lymphocyte Count 2.25 10^3/uL (1.2-3.4); Absolute Monocyte Count 0.35 10^3/uL (0.1-0.8); Absolute Neutrophil Count 2.22 10^3/uL (1.2-6.7); Basophils % 0.8; Eosinophils % 1.2; HCT 40.2 % (36.0-46.0); HGB 13.2 g/dL (11.2-15.7); Immature Grans % 0.2; Lymphocytes % 45.6; MCH 28.6 pg (27.0-33.0); MCHC 32.8 % (32.0-36.0); MPV 9.1 fL (8.0-11.0); Monocytes % 7.1; Neutrophils % 45.1; Nucleated RBC 0 %; Platelet Count 355 10^3/uL (130-400); RBC 4.62 10^6/uL (3.93-5.22); RDW 14.5 % (11.7-14.6); RDW-SD 46.3 fL; WBC 4.93 10^3/uL (4.4-10.8)
[2020-07-01 10:25] LABS: ALT 29 U/L (14-59); AST 21 U/L (15-37); Albumin 3.8 g/dL (3.4-5.0); Alkaline Phosphatase 68 U/L (46-116); Anion Gap 8.9 mmol/L (3-11); BUN 19 mg/dL (7-18); Bilirubin, Total 0.9 mg/dL (0.2-1.0); CO2 25.1 mmol/L (21.0-32.0); CREATININE 0.89 mg/dL (0.55-1.02); Calcium 8.8 mg/dL (8.5-10.1); Chloride 102 mmol/L (98-107); Glucose 96 mg/dL (74-106); Potassium 3.5 mmol/L (3.5-5.1); Sodium 136 mmol/L (136-145); Total Protein 7.7 g/dL (6.4-8.2)
[2020-07-02 11:44] LABS: CEA 2.4 ng/mL (See Note)
== END 2020-07-01 03:37 ==
PROVIDERS: PCP Family Medicine; Visit Provider Internal Medicine Hematology & Oncology
DX: C18.2 Malignant neoplasm of ascending colon (principal)
CPT/HCPCS: 36415; 80053; 82378; 85025

== ENCOUNTER 2020-12-29 03:03 | Outpatient (CLI) | payer MEDICARE, BC, SELFPAY ==
[2020-12-29 11:21] LABS: Abs Immature Grans 0.01 10^3/uL (0.0-0.06); Absolute Basophil Count 0.03 10^3/uL (0.0-0.2); Absolute Eosinophil Count 0.04 10^3/uL (0.0-0.7); Absolute Lymphocyte Count 2.43 10^3/uL (1.2-3.4); Absolute Monocyte Count 0.44 10^3/uL (0.1-0.8); Absolute Neutrophil Count 2.95 10^3/uL (1.2-6.7); Basophils % 0.5; Eosinophils % 0.7; HCT 39.1 % (36.0-46.0); HGB 13.1 g/dL (11.2-15.7); Immature Grans % 0.2; Lymphocytes % 41.2; MCH 28.9 pg (27.0-33.0); MCHC 33.5 % (32.0-36.0); MCV 86.1 fL (80-95); MPV 9.2 fL (8.0-11.0); Monocytes % 7.5; Neutrophils % 49.9; Nucleated RBC 0 %; Platelet Count 339 10^3/uL (130-400); RBC 4.54 10^6/uL (3.93-5.22); RDW 13.7 % (11.7-14.6); RDW-SD 43.2 fL
[2020-12-29 11:34] LABS: ALT 28 U/L (14-59); AST 23 U/L (15-37); Albumin 3.6 g/dL (3.4-5.0); Alkaline Phosphatase 78 U/L (46-116); Anion Gap 9.8 mmol/L (3-11); BUN 16 mg/dL (7-18); Bilirubin, Total 0.9 mg/dL (0.2-1.0); CO2 29.2 mmol/L (21.0-32.0); CREATININE 0.8 mg/dL (0.55-1.02); Calcium 8.8 mg/dL (8.5-10.1); Chloride 102 mmol/L (98-107); Glucose 103 mg/dL (74-106); Potassium 3.5 mmol/L (3.5-5.1); Sodium 141 mmol/L (136-145); Total Protein 7.8 g/dL (6.4-8.2)
[2020-12-29 17:22] LABS: CEA 2.7 ng/mL (See Note)
== END 2020-12-29 03:04 | disposition home or self-care (01) ==
LOC: LBO 03:03
PROVIDERS: Nurse Practitioner Adult Health; PCP Family Medicine; Visit Provider Nurse Practitioner Family
DX: C18.2 Malignant neoplasm of ascending colon (principal)
CPT/HCPCS: 36415; 80053; 82378; 85025

== ENCOUNTER → 2021-04-21 10:27 | Outpatient (BNVA) | payer MEDICARE, BC, SELFPAY | PROVIDERS: PCP Family Medicine; Referring Provider Family Medicine; Visit Provider Physical Therapy Assistant | DX: Z12.11 Encounter for screening for malignant neoplasm of colon (principal); Z86.010 Personal history of colon polyps; Z85.038 Personal history of other malignant neoplasm of large intestine ==

== ENCOUNTER 2021-05-10 11:05 | Day surgery (SDC) | payer MEDICARE, BC, SELFPAY ==
--- NOTE | 2021-05-10 06:47 | COLE_ITS ---
Date of service: 05/10/21 Time of Service: 12:38 Colonoscopy Report Date of procedure: 05/10/21 Pre-op diagnosis general: Hx of colon Cancer and polyps Post-op diagnosis procedure note: same (polyps) Procedure: Colonoscopy with polypectomy Surgeon: Mayra Dela Cruz Anesthesia Type: General:No Airway (ASA 2/Chio Razo CRNA) Estimated blood loss (mL): 5 Pathology: other (Transverse colon x1, sigmoid colon x2) Complications: None Disposition: same day Indications: 1) Tubular adenoma: (2) Hx of malignant neoplasm of colon: The patient is here for Colonoscopy pre-op. Her last screening was in 2019 and was remarkable for tubular adenomatous polyp. She has no family history of colon cancer. She has not had any bowel habit changes. -Discussed colonoscopy bowel prep as well as the procedure. Discussed possible complications of the procedure to include bleeding, pain, perforation, missed small lesion/polyp, sore throat, aspiration and adverse reaction to the medications. Questions were answered to patient?s satisfaction. No guarantees were implied or given. Prep: Miralax/Dulcolax Procedure Start Time: 12:12 Procedure End Time: 12:34 Retraction Time: 15 minutes Findings: 3 small polyps Procedure Description: After informed consent was obtained the patient was taken to the procedure room and placed in a left decubitous position. Monitors were applied and a time out was done. The patients name, date of , pro cedure, allergies to medications and metal in their body was reviewed. The patient was then sedated. Once sedated and comfortable a rectal exam was done. External exam was normal. Internal exam revealed a normal sphincter tone and no palpable masses. The scope was then introduced and retro-flexed. No internal hemorrhoids, polyps or masses were identified on retro-flexion. The scope was then advanced to the ileocolic anastamosis without difficulty. The prep was adequate. The scope was then slowly retracted over minutes back into the rectum. Polyps were removed with cold forceps in the transverse colon and sigmoid colon. There was no diverticulosis noted. The scope was removed and the patient was woken up and taken back to Same day surgery in stable condition. The patient tolerated the procedure well and there were no immediate complications. Follow up: The patient should follow up in 3 years unless they develop changes in bowel habits or other new gastrointestinal complaints.
--- NOTE | 2021-05-10 06:48 | W.PM.DSUDISC ---
Discharge Plan Disposition Patient Disposition: HOME Condition: Good Discharge Details Reason For Visit: Colonoscopy Attending Provider: Mayra Dela Cruz Primary Care Provider: Alec Neff Home Meds and New Rx's Prescriptions: Continued multivitamin [Daily Multi-Vitamin] 1 EACH tablet 1 ea PO DAILY RF: 0 calcium carbonate [Calcium 500] 500 MG tablet 500 mg PO DAILY RF: 0 Fish Oil 500 MG capsule 500 mg PO DAILY RF: 0 chlorthalidone 25 mg Tablet 12.5 mg PO DAILY Qty: 0 RF: 0 Discontinued bisacodyl [Dulcolax (bisacodyl)] 5 mg tablet,delayed release (DR/EC) 5 mg PO ONCE Qty: 4 RF: 0 polyethylene glycol 3350 17 gram/dose powder 238 g PO ONCE Qty: 238 RF: 0 losartan 50 mg Tablet 100 mg PO QAM Qty: 0 RF: 0 Discharge Instructions Additional Instructions: Findings: 3 small benign appearing polyps Follow up: 3 years Please call if you develop: fevers >101.5 Nausea or Vomiting Abdominal pain that is not transient Rectal bleeding that is more then a tbsp A hard abdomen and inability to pass gas DAY SURGERY UNIT POST ENDOSCOPY INSTRUCTIONS Instructions for everyone who is given Anesthesia: For your safety, please do the following for the next 24 Hours: a. Do not drive or operate dangerous equipment b. Do not drink alcohol beverages or use any recreational drugs for the first 24 hours or while taking pain medications. The medications in your body may have a reaction that can be dangerous. c. Do not make any important decisions or sign any important papers 1. Generally there are no restrictions on your activity after a day or so has gone by, but you may feel a bit fatigued for a few days. 2. After you arrive home you may have a light meal and return to a normal diet as you can tolerate it without feeling sick to your stomach. 3. After surgery, you may feel pain or discomfort. This should be only transient, but if it persists please contact your doctor. 4. If there are any questions regarding the findings of your procedure, please feel free to contact your doctor. 6. If you are unable to contact your doctor with a problem, contact the hospital at [phone]. 7. Continue all your regular medications unless directed otherwise. I understand the above instructions and have no questions. Signature of Patient or Responsible Adult Escort Date/Time Name of Responsible Adult Escort Signature of Nurse Date/Time Activity:: Activity as Tolerated Diet:: As Tolerated Discharge Orders Discharge Orders: Discharge Order (Routine); Ordered 05/10/21 Ordered By: Mayra Dela Cruz
[2021-05-10 11:19] VITALS: BP 126/81; PULSE 68; RESP 16; TEMP 36.3; O2SAT 93
--- NOTE | 2021-05-10 11:42 | W.ANESPRE ---
General Info Date of Service Date Performed: 05/10/21 Height: 5 ft 8.9 in Weight: 73.2 kg Body Mass Index (BMI): 23.8 Surgical Procedure: Operation Date: 05/10/21 12:20 Proposed Procedures Side Surgeon p Colonoscopy Mayra Dela Cruz MD Meds Allergies and Home Medications Allergies Allergy/AdvReac Type Severity Reaction Status Date / Time No Known Allergies Allergy Unverified 05/09/21 08:14 Home Medication Medication Instructions Recorded Fish Oil 500 mg PO DAILY 10/25/15 calcium carbonate [Calcium 500] 500 mg PO DAILY 10/25/15 multivitamin [Daily Multi-Vitamin] 1 ea PO DAILY 10/25/15 chlorthalidone 12.5 mg PO DAILY #0 tab 08/10/18 losartan 100 mg PO QAM #0 tab 08/10/18 bisacodyl 5 mg tablet,delayed 5 mg PO ONCE #4 tab 04/21/21 release polyethylene glycol 3350 17 238 g PO ONCE #238 g 04/21/21 gram/dose oral powder Current Visit Medications: Current Medications Generic Name Dose Route Start Last Admin Trade Name Freq PRN Reason Stop Dose Admin Hyoscyamine Sulfate 0.125 mg 05/10/21 06:49 Hyoscyamine 0.125 Mg Sl/Oral/Chew SL DIRECTED PRN Ringer's Solution 1,000 mls @ 80 mls/hr 05/10/21 06:00 IV 06/08/21 23:59 INFUSION [facility] IV Miscellaneous Supplies 1 each 05/10/21 06:00 Iv Access IV 06/08/21 23:59 DIRECTED CANDACE Ondansetron HCl 4 mg 05/10/21 06:49 Ondansetron 4 Mg/2 Ml Vial IVP Q4H PRN PRN Nausea / Vomiting Sodium Chloride 0 ml 05/10/21 06:00 Normal Saline Flush 10 Ml Syr IV 06/08/21 23:59 PRN PRN Sodium Chloride 0 ml 05/10/21 06:00 Normal Saline 10 Ml Vial IJ 06/08/21 23:59 DIRECTED PRN Sterile Water 0 ml 05/10/21 06:00 Water,Injection,Sterile 10 Ml Vial IJ 06/08/21 23:59 DIRECTED PRN PFSH Active Problems Active Problems: Problem Status Onset Code Tubular adenoma ~12/2019 D36.9 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 Barretts esophagus K22.70 Esophagitis determined by endoscopy K20.9 Internal hemorrhoids without complication K64.8 Gastritis K29.70 Hx of malignant neoplasm of colon Z85.038 Anemia D64.9 Status post-operative repair of hip fracture Z98.890, Z87.81 Closed right hip fracture 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 Postoperative anemia D64.9 Hypokalemia E87.6 History of hypertension Z86.79 Anxiety F41.9 Medical History Medical History Abdominal pain Actinic keratosis Anemia Chronic anxiety Closed right hip fracture Fracture, intertrochanteric, right femur s/p IM nailing Gastritis Hx of malignant neoplasm of colon Hyperkalemia Hypertension Iliopsoas bursitis of right hip Melanoma Occult blood in stools Polyuria Skin cancer, basal cell Tobacco use Surgical History Surgical History Colonoscopy - MAC (~12/22/19) 06/05- colon cancer and pre-cancerous polyps 10/2018- hyperplastic polyp H/O esophagogastroduodenoscopy (~12/22/19) 10/2018- gastric ulcers, reflux esophagitis Hemicolectomy (06/13/18) Status post-operative repair of hip fracture IM nailing for right hip fracture DOS: 08/07/18 Dr. Bethea Tobacco Smoking/Tobacco Use Status: Former Tobacco Use Alcohol Alcohol Intake: current Alcohol intake frequency: holidays/special occasions only Alcohol type: wine Substance Use Substance use: Never Substance use type: does not use Vital Signs and Lab Results Vital Signs Most Recent Vital Signs in EMR: Most Recent Vital Signs Temp Pulse Resp BP Pulse Ox 36.3 C L 68 16 126/81 93 05/10/21 11:19 05/10/21 11:19 05/10/21 11:19 05/10/21 11:19 05/10/21 11:19 Lab Results Blood Type / Crossmatch: No Data to Display Complete Blood Count: No Data to Display Complete Metabolic Panel: No Data to Display Liver Function Panel: No Data to Display Coagulation Panel: No Data to Display Cardiac Panel: No Data to Display Arterial Blood Gas: No Data to Display Venous Blood Gas: No Data to Display Pancreas Panel: No Data to Display Thyroid Panel: No Data to Display Infectious Disease: No Data to Display Blood Cultures: No Data to Display Toxicology Panel: No Data to Display Anesthesia Assessment and Plan Anesthesia History Personal History: No History of Anesthesia Complications Family History: No Family History of Anesthesia Complications Exercise Tolerance Exercise Tolerance: Metabolic Equivalents>4 Pertinent Negatives Pertinent Negatives: No Symptoms of GERD, No Major Cardiovascular Symptoms or Complaints, No Major Pulmonary Symptoms or Complaints and No History of CVA/TIA Cardiac & Pulmonary Exam Cardiac Exam: Normal S1/S2 Heart Sounds Pulmonary Exam: Clear Bilateral Breath Sounds Airway Exam Known Difficult Airway: No Mallampati Class: 2 Mouth Opening: Normal (> 3cm) Thyromental Distance: Greater than 3 cm Neck Range of Motion: Full ROM Neck Circumference: Normal Teeth Condition: Normal Dentition (Right front tooth removable partial, in securely) ASA Classification ASA Score: ASA 2 Emergency Case?: No NPO Status NPO Status: NPO Clears >2 hours, Solids >8 hours Anesthesia Plan Resuscitation Status: Full Code Anesthesia Technique: General Anesthesia Airway Planned: Natural Airway Monitors Used: Standard Monitors
[2021-05-10] MEDS: Lactated Ringers 1,000 ML 80 ML IV (11:46)
[2021-05-10 11:47] VITALS: BMI 23.8
--- NOTE | 2021-05-10 12:30 | BOWEL_PTH ---
PATIENT: Emily Miles LOC: [facility] U#:[id number] AGE/SX: 65/F ROOM: RE05/10/[address]: Mayra Dela Cruz MD : 1955 BED: DIS: 05/10/2021 SPEC #: [id number] RECD: 05/10/21 13:07 STATUS: DELORES REDvaid #: [id number] JAMES: 05/10/21 12:[address]: Mayra Dela Cruz DEPT: Surgical Specimen RECD BY: Arabella Jacobo ENTERED: 05/10/21 13:08 SP TYPE: Bowel OTHR DR: Alec Neff Tissues: 1 - BIOPSY BOWEL 2 - BIOPSY BOWEL Procedures: GROSS AND MICRO LEVEL 4 Comments: [id number]
--- NOTE | 2021-05-10 12:38 | W.ANESPOSTOP ---
Postoperative Evaluation Date, Time and Location Date Performed: 05/10/21 Time Performed: 12:39 Patient Location: Day Surgery Unit Vital Signs Most Recent Imported Vital Signs: Most Recent Vital Signs Temp Pulse Resp BP Pulse Ox 36.3 C L 68 16 126/81 93 05/10/21 11:19 05/10/21 11:19 05/10/21 11:19 05/10/21 11:19 05/10/21 11:19 Most Recent Manually Entered Vital Signs: Adult Blood Pressure: 126/85 Heart Rate: 65 Respirations: 18 Oxygen Saturation (%): 94 Temperature (C): 36.2 C Pain Score (0-10 Scale): 2 Pain Score Most Recent Pain Score: 2, abdominal gas cramping Assessment Mental Status: Awake (Alert & Oriented to Patient Baseline) Airway and Respiratory Function: Patent airway with normal (patient baseline) respiratory exam Cardiovascular Function: Hemodynamically Stable Hydration Status: Adequately Hydrated Nausea & Vomiting: No Nausea or Vomiting Pain: Pain is tolerable per patient Peripheral Nerve Block: Patient did not receive a nerve block Postoperative Comments:: Preoperatively prior to sedation, patient asked if she could take a lorazepam tonight if she is unable to sleep. I recommended that she not take any tonight since she does not use the lorazepam very often. Suggested she wait until tomorrow evening to use it and only if necessary.
[2021-05-10 12:40] VITALS: BP 126/85; PULSE 66; RESP 16; TEMP 36.2; O2SAT 92
[2021-05-10 12:47] VITALS: BP 126/85; PULSE 65; RESP 18; TEMPC 36.2; O2SAT 94
[2021-05-10 13:05] VITALS: BP 149/94; PULSE 53; RESP 16; TEMP 36.1; O2SAT 97
== END 2021-05-10 13:30 | disposition home or self-care (01) ==
PROVIDERS: PCP Family Medicine; Visit Provider Surgery
PROC: 0DJD8ZZ Inspection of Lower Intestinal Tract, Via Natural or Artificial Opening Endoscopic (ICD-10-PCS; CPT 45378; principal; 2021-05-10 12:15)
DX: Z12.11 Encounter for screening for malignant neoplasm of colon (principal); D12.3 Benign neoplasm of transverse colon; K63.5 Polyp of colon; Z85.038 Personal history of other malignant neoplasm of large intestine; Z86.010 Personal history of colon polyps; F41.9 Anxiety disorder, unspecified; Z98.0 Intestinal bypass and anastomosis status
CPT/HCPCS: 45380; 88305; J2001

== ENCOUNTER 2021-09-14 04:51 | Outpatient (CLI) | payer MEDICARE, BC, SELFPAY ==
[2021-09-14 12:50] LABS: ALT 36 U/L (14-59); AST 26 U/L (15-37); Albumin 3.6 g/dL (3.4-5.0); Alkaline Phosphatase 91 U/L (46-116); BUN 20 mg/dL (7-18); Bilirubin, Total 0.8 mg/dL (0.2-1.0); Calcium 8.9 mg/dL (8.5-10.1); Chloride 102 mmol/L (98-107); Estimated GFR 55.47 (mL/min/1.73m2); Glucose 111 mg/dL (74-106); Potassium 3.9 mmol/L (3.5-5.1); Sodium 140 mmol/L (136-145); Total Protein 7.2 g/dL (6.4-8.2)
[2021-09-15 10:26] LABS: Lyme Ab w Rflx to Lyme Confirm Negative (Negative)
== END 2021-09-14 04:52 | disposition home or self-care (01) ==
LOC: LBO 04:51
PROVIDERS: PCP Family Medicine; Visit Provider Family Medicine
DX: I10 Essential (primary) hypertension (principal); F10.99 Alcohol use, unspecified with unspecified alcohol-induced disorder; M19.90 Unspecified osteoarthritis, unspecified site
CPT/HCPCS: 36415; 80053; 84550; 86618

== ENCOUNTER 2021-10-31 19:27 | Outpatient (REF) | payer MEDICARE, BC, SELFPAY ==
[2021-10-31 20:49] LABS: Calculated LDL 154 mg/dL (<100); Cholesterol 230 mg/dL (<200); HDL Cholesterol 62 mg/dL (40-60); Triglyceride 71 mg/dL (<150)
== END 2021-10-31 19:28 | disposition home or self-care (01) ==
LOC: NCHCN 19:27
PROVIDERS: PCP Family Medicine; Visit Provider Family Medicine
DX: Z00.00 Encounter for general adult medical examination without abnormal findings (principal); Z98.890 Other specified postprocedural states
CPT/HCPCS: 80061

== ENCOUNTER 2022-01-20 00:59 | Outpatient (CLI) | payer MEDICARE, BC, SELFPAY ==
--- NOTE | 2022-01-20 10:50 | DI.DEXA_ITS ---
Exam(s) XR DEXA BONE DENSITY W/WO ANISHA EXAM: XR DEXA BONE DENSITY W/WO ANISHA CLINICAL HISTORY: POSTMENOPAUSAL, Z78.0 TECHNIQUE: COMPARISON: No exams were available for comparison FINDINGS: Lateral Spine Image: Unremarkable. No compression deformities identified. Left hip: Total T-Score: -2.7 Total Z-Score: -1.4 T- and Z-scores: Findings are consistent with osteoporosis. Lumbar Spine: Total T-Score: -3.3 Total Z-Score: -1.4 T- and Z-scores: Findings are consistent with osteoporosis. IMPRESSION: Osteoporosis in the lumbar spine and left hip.
--- NOTE | 2022-01-20 11:00 | DI.MAMMO_ITS ---
Exam(s) MAMMO SCREENING EXAM: MAMMO SCREENING CLINICAL HISTORY: SCREENING, [facility], Z00.00 TECHNIQUE: Bilateral full field digital CC and MLO mammographic images were obtained with 3D tomosyn thesis and utilizing computer aided detection (CAD). COMPARISON: Available for comparison. FINDINGS: Masses/Architectural Distortion: There is an asymmetric density in the central outer left breast on t he craniocaudad view. Microcalcifications: No suspicious pleomorphic-type are seen. Skin Thickening/Nipple Retraction: None. IMPRESSION: 1. Asymmetric density in the central outer left breast on the craniocaudad view. 2. This area should be further evaluated with a spot compression view. Ultrasound may be indicated a t that time. BI-RADS Category 0 - Assessment Incomplete: Need additional imaging evaluation Breast Density - Category B - Scattered areas of fibroglandular density Breast density category C or D implies that the patient has dense breast tissue. Dense breast tissue is very common and is not abnormal but dense breast tissue can make it harder to find cancer on a ma mmogram. Also, dense breast tissue may increase their breast cancer risk. This information about the result of the mammogram report was provided to the patient to raise their awareness. Use this report when you speak with the patient about their risks for breast cancer, which includes their family hist ory. At that time, you may recommend for more screening tests (Ultrasound or MRI) as they might be us eful based on their risk. A negative radiographic report should not delay biopsy if a dominant or clinically suspicious mass is present. Up to ten percent of cancers are not identified on mammography. A negative report may reinforce clinical impression. Adenosis and dense breasts may obscure an underlying neoplasm. False positive reports average 6 to 10%. Patient will receive a letter notifying them of these results.
== END 2022-01-20 01:19 ==
PROVIDERS: PCP Family Medicine; Visit Provider Family Medicine
DX: Z78.0 Asymptomatic menopausal state (principal); Z12.31 Encounter for screening mammogram for malignant neoplasm of breast; R92.8 Other abnormal and inconclusive findings on diagnostic imaging of breast; Z13.820 Encounter for screening for osteoporosis; M81.0 Age-related osteoporosis without current pathological fracture
CPT/HCPCS: 77063; 77067; 77080

== ENCOUNTER 2022-01-30 00:38 | Outpatient (CLI) | payer MEDICARE, BC, SELFPAY ==
--- NOTE | 2022-01-30 | DI.MAMMO_ITS ---
Exam(s) MAMMO SCREEN CALL BACK UNI EXAM: MAMMO SCREEN CALL BACK UNI CLINICAL HISTORY: F/U MAMMO, ASYMMETRIC DENSITY LT BREAST TECHNIQUE: Spot compression views and tomographic imaging were performed. Craniocaudal and mediolateral oblique spot compression digital Mammography views of the left breast w ith Computer Aided Diagnosis followed by Tomosynthesis and breast ultrasound. COMPARISON: 2014 FINDINGS: No suspicious masses or suspicious microcalcifications are seen. No persistent abnormality is seen on the additional views performed. The findings are consistent wit h overlying fibroglandular tissue. There has been no significant change from prior exams. IMPRESSION: BI-RADS Category 1, Negative Yearly screening mammography is recommended. Breast Density - Category B, scattered fibroglandular densities.
== END 2022-01-30 00:58 ==
PROVIDERS: PCP Family Medicine; Visit Provider Family Medicine
DX: Z12.31 Encounter for screening mammogram for malignant neoplasm of breast (principal); R92.8 Other abnormal and inconclusive findings on diagnostic imaging of breast; N64.59 Other signs and symptoms in breast
CPT/HCPCS: 77063; 77067

== ENCOUNTER 2022-02-15 02:12 | Outpatient (CLI) | payer MEDICARE, BC, SELFPAY ==
--- NOTE | 2022-02-15 08:30 | DI.CTLCSR_ITS ---
Exam(s) CT CHEST LUNG CANCER SCREEN EXAM: CT CHEST LUNG CANCER SCREEN CLINICAL HISTORY: EX-SMOKER FOR MORE THAN 1 YEAR, Z87.891, [id number] HISTORY TECHNIQUE: CT examination of the chest was performed utilizing low-dose lung cancer screening protoc ol. COMPARISON: CT CHEST WITH CONTRAST from 06/12/2018 FINDINGS: Images obtained through the upper abdomen show unremarkable appearance of visualized portions of the liver and spleen. Note is made of coronary artery calcification. There is no mediastinal or hilar adenopathy. Mediastinal vascular structures appear intact by noncon trast criteria. Tracheobronchial tree appears intact. No pleural effusion or pleural-based mass. The lungs are clear with no significant intrapulmonary nodule identified. There are very faint scatt ered vaguely nodular ground-glass radiodensities, most prominent in right upper lobe, unchanged from prior examination of May 2018. IMPRESSION: Lung RADS Cat 1 - Negative: No nodules and definitely benign nodules Continue annual screening with LDCT in 12 months. Lung-RADS 1.0 CATEGORIES: Category 0 - Prior chest CT exam(s) being located for comparison. Category 1 - Annual screening in 12 months. No nodules or definitely benign nodules. Category 2 - Annual screening in 12 months. Benign appearance. Nodules with low likelihood of becomin g active cancer. Category 3 - 6-month follow-up. Probably benign. Short-term follow-up suggested. Nodules with low lik elihood of becoming active cancer. Category 4A - 3-month follow-up and CT/PET if >8 mm in size. Suspicious finding. Findings which requi re additional testing. Category 4B - Findings which require additional testing and tissue sampling. Suspicious finding. Category 4X - Category 3 or 4 nodules with additional features or imaging findings that increases the suspicion of malignancy. Modifier S- Potentially clinically significant finding. (Non lung cancer) RADIATION DOSE DELIVERED: 81.83mGy.cm Total DLP !Error CTDIvol 81.83mGy.cm Total DLP !Error CTDIvol RADIATION OPTIMIZATION: All CT scans at this facility use at least one of these dose optimization te chniques: automated exposure control; mA and/or kV adjustment per patient size (includes targeted exa ms where dose is matched to clinical indication); or iterative reconstruction.
== END 2022-02-15 02:32 ==
PROVIDERS: PCP Family Medicine; Visit Provider Family Medicine
DX: Z87.891 Personal history of nicotine dependence (principal); Z12.2 Encounter for screening for malignant neoplasm of respiratory organs
CPT/HCPCS: 71271

== ENCOUNTER 2022-10-07 20:20 | Emergency (ER) | payer MEDICARE, BC, SELFPAY ==
[2022-10-07 20:29] VITALS: BP 168/102; PULSE 69; RESP 13; TEMP 36.5; O2SAT 99
--- NOTE | 2022-10-07 20:30 | RT.EKG_ITS ---
APPROVED REPORT Exam: Resting ECG Reason for Exam: confusion Patient Location: E HR:79 bpm ECG Measurements Heart Rate 79 AXIS VA 178 P 66 QRSd 108 QRS 69 QT 467 T 44 QTc 536 Conclusion Sinus rhythm...normal P axis, V-rate 60- 99 Probable left atrial enlargement...P >50mS, <-0.10mV V1 Prolonged QT interval...QTc >500mS sinus rhtyhm, normal axis, non ischemic
[2022-10-07 20:47] VITALS: TEMP 36.4
[2022-10-07] MEDS: Ondansetron 4 MG/2 ML VIAL (20:47)
[2022-10-07 20:48] LABS: Abs Immature Grans 0.06 10^3/uL (0.0-0.06); Absolute Basophil Count 0.06 10^3/uL (0.0-0.2); Absolute Eosinophil Count 0.05 10^3/uL (0.0-0.7); Absolute Monocyte Count 0.55 10^3/uL (0.1-0.8); Absolute Neutrophil Count 9.11 10^3/uL (1.2-6.7); Basophils % 0.5; Eosinophils % 0.4; HCT 39.3 % (36.0-46.0); HGB 13.2 g/dL (11.2-15.7); Immature Grans % 0.5; Lymphocytes % 21.5; MCH 29.2 pg (27.0-33.0); MCHC 33.6 % (32.0-36.0); MCV 87 fL (80-95); MPV 9.4 fL (8.0-11.0); Monocytes % 4.4; Neutrophils % 72.7; Platelet Count 345 10^3/uL (130-400); RBC 4.52 10^6/uL (3.93-5.22); RDW 13.2 % (11.7-14.6); RDW-SD 41.7 fL; WBC 12.53 10^3/uL (4.4-10.8)
[2022-10-07 20:51] LABS: Absolute Lymphocyte Count 2.69 10^3/uL (1.2-3.4)
--- NOTE | 2022-10-07 20:55 | ED.GENADUL_ITS ---
Discharge Plan Disposition Patient Disposition: Home Condition: Good Discharge Details Chief Complaint: AMS/LOC Clinical Impression: Acute alteration in mental status, Acute hypokalemia Primary Care Provider: Aelc Neff ED Provider: Rom Garcia Home Meds and New Rx's Prescriptions: No Action multivitamin [Daily Multi-Vitamin] 1 EACH tablet 1 ea PO DAILY calcium carbonate [Calcium 500] 500 MG tablet 500 mg PO DAILY Fish Oil 500 MG capsule 500 mg PO DAILY chlorthalidone 25 mg Tablet 12.5 mg PO DAILY Qty: 0 0RF losartan 100 mg tablet 1 tab PO DAILY Label Comments: TAKE ONE TABLET BY MOUTH EVERY DAY Discharge Instructions Instructions: Hypokalemia (ED), Altered Mental Status (ED) Additional Instructions: At this time your work-up shows no evidence of stroke or bleed or tumor. Please stay well-hydrated, monitor your symptoms closely, and return if you have any changes. Please make sure to follow-up closely with your primary care provider for reassessment this week. If you notice any worsening of your symptoms, or any new symptoms such as vomiting, diarrhea, fever, chills, shortness of breath, chest pain, numbness, weakness, or fainting , please return immediately to the emergency department for reevaluation. Please follow up with your primary care provider as soon as possible for reassessment and reevaluation. As always, it was a pleasure participating in your medical care today. Referrals: Alec Neff [Primary Care Provider] - Medical Decision Making 66-year-old female with a past medical history of esophagitis, GERD, previous cecal cancer, hypertension, anxiety, who presents today for evaluation of weakness, headache, vomiting. The patient was with family having dinner, she had a few glasses of wine, when about 2 hours prior to arrival she had sudden onset headache, vomiting, change in mental status. She also noticed some blurry and double vision at the time. She was confused and family thought she might have a mild right facial droop. 911 was called, by the time EMS arrived the headache, confusion and blurry vision had resolved. She was still nauseous. She came to the ER for further evaluation. She denies any history of stroke, bleed, or blood thinner use. She denies any trauma. She denies any other complaints at this time. No other modifying factors. Exam demonstrates a well-appearing female, she does appear mildly intoxicated however at this time I do not see any clear evidence of focal neurologic deficits. Her NIH stroke score is 0. She shows no evidence of significant weakness or facial asymmetry. She states that the headache has improved/resolved. Differential includes effects of alcohol intoxication versus stroke, or bleed. As the symptoms have been within less than 3 hours I do feel that CT/CTA is reasonable at this time. We will monitor closely gently rehydrate and reassess. 10:09 PM Laboratory work-up has returned, minimal white count at 12, electrolytes stable aside for a potassium of 3.1. We will correct this with 10 mill equivalents of IV potassium and 40 of oral potassium. BUN is 21 suggesting mild dehydration. Troponin normal, thyroid function normal, EKG stable. CT/CTA shows no significant abnormality per virtual radiology. There is a small amount of groundglass pulmonary abnormality noted at the apex of the lungs, however the patient has no fever, cough, or chills. Symptoms inconsistent with pneumonia. On reassessment the patient continues to feel well. Repeat neurologic exam shows no focal neurologic deficits. The patient feels well and the option was given for prolonged observation and the patient has refused. Patient does not want to stay overnight. The patient is able to speak clearly. There is no demonstration of any slurring of speech. There is evidence of clear decision making capacity. Patient is able to ambulate well without any difficulty. There are no signs of ataxia or stumbling motions. Patient the patient's potassium is slightly low at 3.1, magnesium level is normal. Patient was given 40 of oral potassium and 10 of IV potassium. Family still at bedside. They agree with plan, and will take her mother home. Symptoms appear most consistent with mild intoxication, however TIA is on the differential. but the ABCD2 score is low risk. No indication for anticoagulation. Patient is stable for discharge. Discussed red flags which return. I have extensively reviewed the treatment plan and discharge instructions with the patient and their family. I have addressed all patient concerns at this time. The patient and family was made aware of what symptoms to monitor for that would warrant a return to the emergency department. Discussed the plan with the patient and family, they demonstrate verbal understanding and agreement with our assessment and plan at this time. The documentation in this chart was dictated using [employer] dictation software. Please excuse any dictation errors. FINDINGS: ANTERIOR CIRCULATION: Right internal carotid artery: The right internal carotid artery shows no evidence of occlusion or significant stenosis. No aneurysm. Right middle cerebral artery: No occlusion or significant stenosis in the right MCA. No aneurysm. Right anterior cerebral artery: No occlusion or significant stenosis in the right RICHMOND. No aneurysm. Left internal carotid artery: The left internal carotid artery shows no evidence of occlusion or significant stenosis. No aneurysm. Left middle cerebral artery: No occlusion or significant stenosis in the left MCA. No aneurysm. Left anterior cerebral artery: No occlusion or significant stenosis in the left RICH[place]D. No aneurysm. POSTERIOR CIRCULATION: Right vertebral artery: No occlusion or significant stenosis in the right vertebral artery. No aneurysm. Left vertebral artery: No occlusion or significant stenosis in the left vertebral artery. No aneurysm. Basilar artery: The basilar artery shows no evidence of occlusion or significant stenosis. No aneurysm. Right posterior cerebral artery: No occlusion or significant stenosis in the right [employer]. No aneurysm. Left posterior cerebral artery: No occlusion or significant stenosis in the left [employer]. No aneurysm. Brain: No definite mass, mass effect, or midline shift. Cerebral ventricles: No ventriculomegaly. Bones/joints: Unremarkable. No acute fracture. Soft tissues: Unremarkable. IMPRESSION: No large vessel occlusion or significant stenosis FINDINGS: Right common carotid artery: No significant stenosis in the right CCA. No dissection or occlusion. Right internal carotid artery: No significant stenosis of the right ICA extracranial segment. No dissection or occlusion. Right external carotid artery: No occlusion or stenosis of the origin in the right ECA. Left common carotid artery: No significant stenosis in the left CCA. No dissection or occlusion. Left internal carotid artery: No significant stenosis of the left ICA extracranial segment. No dissection or occlusion. Left external carotid artery: No occlusion or stenosis of the origin in the left ECA. Right vertebral artery: No significant stenosis in the right vertebral artery. No dissection or occlusion. Left vertebral artery: No significant stenosis in the left vertebral artery. No dissection or occlusion. Pharynx: There is a slightly prominent appearance of the lingual tonsils. Soft tissues: Normal. No significant soft tissue swelling. Bones/joints: No acute fracture Lungs: Small regions of ground-glass opacity noted in the bilateral lung apices. A 3 mm nodule is seen in the right lung apex. IMPRESSION: 1. No significant carotid stenosis. No arterial occlusion or dissection. 2. Small ground-glass pulmonary partially visualized. Correlate with clinical findings to evaluate for possible pulmonary edema/mild interstitial inflammatory/infectious process. REFERENCES: NASCET CRITERIA. The degree of stenosis in the cervical segment of the internal carotid artery is based on NASCET criteria. Normal is no stenosis. Mild is less than 50% stenosis. Moderate is 50- 69% stenosis. Severe is 70% to 99% stenosis. Total occlusion is no detectable patent lumen. Thank you for allowing us to participate in the care of your patient. Dictated and Authenticated by: Jelly Persaud MD 10/07/2022 10:25 PM Eastern Time ([place] & [place]) Sign Out No HPI General Date/Time Provider Initiated Documentation: 10/07/22 20:21 . HPI Narrative: 66-year-old female with a past medical history of esophagitis, GERD, previous cecal cancer, hypertension, anxiety, who presents today for evaluation of weakness, headache, vomiting. The patient was with family having dinner, she had a few glasses of wine, when about 2 hours prior to arrival she had sudden onset headache, vomiting, change in mental status. She also noticed some blurry and double vision at the time. She was confused and family thought she might have a mild right facial droop. 911 was called, by the time EMS arrived the headache, confusion and blurry vision had resolved. She was still nauseous. She came to the ER for further evaluation. She denies any history of stroke, bleed, or blood thinner use. She denies any trauma. She denies any other complaints at this time. No other modifying factors. Related Data Home Medications Medication Instructions Recorded Confirmed calcium carbonate 500 mg calcium 500 mg PO DAILY 10/25/15 10/07/22 (1,250 mg) tablet (Calcium 500) multivitamin (Daily Multi-Vitamin 1 ea PO DAILY 10/25/15 10/07/22 tablet) omega-3 fatty acids 500 mg capsule 500 mg PO DAILY 10/25/15 10/07/22 (Fish Oil) chlorthalidone 25 mg tablet 12.5 mg PO DAILY #0 tabs 08/10/18 10/07/22 losartan 100 mg tablet 1 tab PO DAILY 10/07/22 10/07/22 Previous Rx's Medication Instructions Recorded chlorthalidone 25 mg tablet 12.5 mg PO DAILY #0 tabs 08/10/18 Allergies Allergy/AdvReac Type Severity Reaction Status Date / Time No Known Allergies Allergy Unverified 10/07/22 20:27 General Stated Complaint: AMS/LOC SAMANTHA: 2 Review of Systems All systems reviewed & are unremarkable except as noted in HPI and below PFSH All Active Problems (Updated 10/07/22 @ 23:04 by Rom Garcia DO) Acute alteration in mental status (Acute) Acute hypokalemia (Acute) Colon polyp, hyperplastic (Acute ~04/2021) Serrated adenoma of colon (Acute ~04/2021) Tubular adenoma (Acute ~12/2019) Iliopsoas bursitis of right hip (Acute) Barretts esophagus (Acute) Esophagitis determined by endoscopy (Acute) Internal hemorrhoids without complication (Acute) Gastritis (Chronic) Anemia (Chronic) Status post-operative repair of hip fracture (Acute) IM nailing for right hip fracture DOS: 08/07/18 Dr. Bethea Closed right hip fracture (Acute) Cecal cancer (Acute) Postoperative anemia (Acute) Hypokalemia (Acute) History of hypertension (Acute) Anxiety (Acute) Medical History Abdominal pain Actinic keratosis Chronic anxiety Fracture, intertrochanteric, right femur s/p IM nailing Hyperkalemia Hypertension Melanoma Occult blood in stools Polyuria Skin cancer, basal cell Tobacco use Surgical History Colonoscopy - MAC (~12/22/19) 06/05- colon cancer and pre-cancerous polyps 10/2018- hyperplastic polyp H/O esophagogastroduodenoscopy (~12/22/19) 10/2018- gastric ulcers, reflux esophagitis Hemicolectomy (06/13/18) History of colonoscopy (~04/2021) Family History Other Alzheimer's dementia Brain malignancy Heart disease Laryngeal cancer Uterine cancer Social History Smoking/Tobacco Use Status: Former Tobacco Use Quit Date: 11/19/16 Smoking risk assessment performed?: Yes Alcohol Intake: current Alcohol Intake frequency: holidays/special occasions only Alcohol type: wine Drug use: Never Substance use type: does not use Household members: spouse Housing: house Number of Children: 2 current occupation: [employer] Do you feel safe at home: Yes Do you feel safe in your relationship?: Yes Exam Narrative Exam Narrative: 1.Const: Well-nourished, Well-developed, appearing stated age 2.Eyes: PERRL, no conjunctival injection, and symmetrical lids. 3.ENT: Atraumatic external nose and ears. Moist MM. Neck: Symmetric, trachea midline, No thyromegaly. 4.CVS: +S1/S2, No murmurs or gallops. Peripheral pulses 2+ and equal in all ex tremities. Brisk capillary refill in all extremities. 5.RESP: Unlabored respiratory effort. Clear to auscultation bilaterally. No wheezes rales or rhonchi 6.GI: Soft, Nontender/Nondistended, No hepatosplenomegaly. No guarding or rebound. 7.MSK: Normocephalic/Atraumatic, Extremities w/o deformity or ttp No cyanosis or clubbing, Normal movement of all extremities 8.Skin: Warm, Dry. No rashes or lesions. 9.Neuro: CN 2-12 tested and intact, patient is able to hold bilateral arms up for 5 seconds and there is no pronator drift, patient also holds legs up for 10 seconds bilaterally without any drop, sensation intact to light touch in hands and feet bilaterally. Cerebellar exam normal as tested by sxtlyc-jwpm-fudeue, ecfy-mlcq-lcng, rapid alternating movements, fine finger movements. Visual zhao intact peripherally. Normal speech pattern and verbal understanding. All 6 cardinal planes of vision are fully intact. No evidence of rotatory or vertical nystagmus. Minimal horizontal nystagmus is present. The patient demonstrated a normal nuvrhh-abna-rioekx, good dexterity. There was no evidence of dysdiadochokinesia. Patient was able to ambulate without difficulty. There was no wide-based gait. Romberg testing was normal. Ekpm-mx-vgls testing was normal. Sensation was intact bilaterally as well as muscle strength bilaterally for all extremities. Patient was able to verbalize butter cup with no slurring, or miss pronunciation. 10.Psych: (AAO) x3. Appropriate mood and affect Course Vital Signs Vital signs: Vital Signs Temperature 36.5 C 10/07/22 20:29 Pulse 69 10/07/22 20:29 Respiratory Rate 13 10/07/22 20:29 Blood Pressure 168/102 H 10/07/22 20:29 Pulse Oximetry 99 10/07/22 20:29 Temperature 36.4 C L 10/07/22 20:47 Temperature Source Oral 10/07/22 20:29 Pulse 69 10/07/22 20:29 Respiratory Rate 13 10/07/22 20:29 Respiratory Effort Non-Labored 10/07/22 20:34 Blood Pressure 168/102 H 10/07/22 20:29 Blood Pressure Position Supine 10/07/22 20:29 Pulse Oximetry 99 10/07/22 20:29 Oxygen Delivery Method Room Air 10/07/22 20:29 Oxygen Flow Rate 0 10/07/22 20:29 Pain Level 0 10/07/22 20:47 Lab/Test Results Lab/Test Results: Laboratory Tests Range/Units 10/07/22 20:35 WBC (4.4-10.8) 10^3/uL 12.53 H RBC (3.93-5.22) 10^6/uL 4.52 Hgb (11.2-15.7) g/dL 13.2 Hct (36.0-46.0) % 39.3 MCV (80-95) fL 87 MCH (27.0-33.0) pg 29.2 MCHC (32.0-36.0) % 33.6 RDW (11.7-14.6) % 13.2 Plt Count (130-400) 10^3/uL 345 MPV (8.0-11.0) fL 9.4 Immature Gran % 0.5 Neutrophils % 72.7 Lymphocytes % 21.5 Monocytes % 4.4 Eosinophils % 0.4 Basophils % 0.5 Nucleated RBC % (0.0-0.3) % 0.0 Absolute Neutrophils (1.2-6.7) 10^3/uL 9.11 H Absolute Lymphocytes (1.2-3.4) 10^3/uL 2.69 Absolute Monocytes (0.1-0.8) 10^3/uL 0.55 Absolute Eosinophils (0.0-0.7) 10^3/uL 0.05 Absolute Basophils (0.0-0.2) 10^3/uL 0.06
[2022-10-07 21:02] LABS: PTT Activated 24.6 sec (21.0-27.5)
--- NOTE | 2022-10-07 21:03 | DI.CT_ITS ---
Exam(s) CT BRAIN NECK CTA EXAM: CT BRAIN NECK CTA CLINICAL HISTORY: confusion 2 hrs, headache, r/o bleed, stroke. TECHNIQUE: Imaging Protocol: Axial CT angiography was performed with multi-slice acquisition and mu lti-planar and/or 3D reconstructions. CONTRAST MATERIAL: Intravenous: Omnipaque 350 Contrast volume:structured data in ml COMPARISON: CT ABD PELVIS WITH CONTRAST from 06/10/2018 FINDINGS: CT angiography of the cervical cranial region was performed according to the usual protocol with intr avenous infusion of 100 cc of Omnipaque 350.. Initial noncontrast scanning of the head is unremarkable. Visualized lung apices are clear except for mild mosaic attenuation, nonspecific period. Visualized portions of thoracic aorta and pulmonary arterial circulation are unremarkable. There is no evidence of a cervical mass or adenopathy. The tracheal laryngeal structures appear intact. The common, internal, and external carotid arteries are within normal limits in the cervical region w ith no evidence of aneurysm, stenosis, or dissection. The vertebral arteries are unremarkable in appearance in the cervical region with no evidence of aneu rysm, stenosis, or dissection. Intracranial portions of the internal carotid arteries appear normal with no evidence of aneurysm, st enosis, or dissection. Intracranial vertebral arteries and basilar artery appear normal with no evidence of aneurysm, stenos is or dissection. No aneurysm identified in the region of the [id number]. The anterior, middle, and posterior cer ebral arteries and major branches appear intact with no evidence of aneurysm, stenosis, or dissection . No enhancing brain lesion identified on 5 minutes delayed images.. IMPRESSION: Negative CT angiography of the cervical cranial region. RADIATION DOSE DELIVERED: 1606.19 mGy.cmTotal DLP 1606.19 mGy.cm Total DLP DATA REPOSITORY: All CT scans at this facility are submitted to the National Radiology Data Registry (NRDR) Dose Index Registry (DIR) with the [employer] (ACR). RADIATION OPTIMIZATION: All CT scans at this facility use at least one of these dose optimization te chniques: automated exposure control; mA and/or kV adjustment per patient size (includes targeted exa ms where dose is matched to clinical indication); or iterative reconstruction.
[2022-10-07 21:14] LABS: ALT 32 U/L (14-59); AST 40 U/L (15-37); Albumin 4.2 g/dL (3.4-5.0); Alkaline Phosphatase 81 U/L (46-116); Anion Gap 13.1 mmol/L (3-11); BUN 21 mg/dL (7-18); Bilirubin, Total 0.7 mg/dL (0.2-1.0); CO2 24.9 mmol/L (21.0-32.0); CREATININE 0.9 mg/dL (0.55-1.02); Calcium 8.9 mg/dL (8.5-10.1); Chloride 96 mmol/L (98-107); Estimated GFR 70.07 (mL/min/1.73m2); Glucose 94 mg/dL (74-106); Potassium 3.1 mmol/L (3.5-5.1); Sodium 134 mmol/L (136-145); TSH (W/Ref FT4) 2.87 uIU/mL (0.36-3.74); Total Protein 8.2 g/dL (6.4-8.2); Troponin I < 50 ng/L (<or=60)
[2022-10-07 21:33] LABS: Lipase 130 U/L (73-393)
[2022-10-07] MEDS: Omnipaque 350 MG/ML 100 ML BTL 85 ML IJ (21:47)
[2022-10-07] MEDS: Normal Saline - Diluent 50 ML VIAL IV (21:48)
[2022-10-07] MEDS: Potassium Chloride 20 MEQ TABCR 40 MEQ PO (22:21)
[2022-10-07] MEDS: POTASSIUM CHLORIDE 10 MEQ/100 ML BAG 100 MEQ IVPB (22:21)
[2022-10-07] MEDS: Ondansetron 4 MG/2 ML VIAL IVP (22:21)
--- NOTE | 2022-10-07 22:25 | DI.VRAD_ITS ---
PROCEDURE INFORMATION: Exam: CT Head Without Contrast Exam date and time: 10/07/2022 9:19 PM Age: 66 years old Clinical indication: Stroke-like symptoms; Altered mental status/memory loss and dizziness/giddiness and headache; Right facial droop; Additional info: Headache, vomiting, right sided facial droop TECHNIQUE: Imaging protocol: Computed tomography of the head without contrast. Other technique: STROKE PROTOCOL was implemented. COMPARISON: CT BRAIN NECK CTA 10/07/2022 8:52 PM FINDINGS: Brain: There is no acute intracranial hemorrhage, mass effect or midline shift. There is no large acute territorial cerebral infarct. Cerebral ventricles: No ventriculomegaly. Paranasal sinuses: Visualized sinuses are unremarkable. No fluid levels. Mastoid air cells: Visualized mastoid air cells are well aerated. Bones/joints: No acute fracture. Soft tissues: Unremarkable. IMPRESSION: No acute intracranial hemorrhage, mass effect or midline shift. If there is further clinical concern for acute infarct, MRI may be considered. ASSESSMENT: ASPECTS ([place] Stroke Program Early CT Score) is 10. PROCEDURE INFORMATION: Exam: CTA Head With Contrast, Arteriography Exam date and time: 10/07/2022 9:19 PM Age: 66 years old Clinical indication: Stroke-like symptoms; Altered mental status/memory loss and dizziness/giddiness and headache; Right facial droop; Additional info: Headache, vomiting, right sided facial droop TECHNIQUE: Imaging protocol: Computed tomographic angiography of the head with contrast. Exam focused on the arteries. 3D rendering (Not supervised by radiologist): MIP and/or 3D reconstructed images were created by the technologist. Contrast material: OMNIPAQUE 350; Contrast volume: 85 ml; Contrast route: INTRAVENOUS (IV); COMPARISON: CT BRAIN NECK CTA 10/07/2022 8:52 PM FINDINGS: ANTERIOR CIRCULATION: Right internal carotid artery: The right internal carotid artery shows no evidence of occlusion or significant stenosis. No aneurysm. Right middle cerebral artery: No occlusion or significant stenosis in the right MCA. No aneurysm. Right anterior cerebral artery: No occlusion or significant stenosis in the right R[place]. No aneurysm. Left internal carotid artery: The left internal carotid artery shows no evidence of occlusion or significant stenosis. No aneurysm. Left middle cerebral artery: No occlusion or significant stenosis in the left MCA. No aneurysm. Left anterior cerebral artery: No occlusion or significant stenosis in the left R[place]. No aneurysm. POSTERIOR CIRCULATION: Right vertebral artery: No occlusion or significant stenosis in the right vertebral artery. No aneurysm. Left vertebral artery: No occlusion or significant stenosis in the left vertebral artery. No aneurysm. Basilar artery: The basilar artery shows no evidence of occlusion or significant stenosis. No aneurysm. Right posterior cerebral artery: No occlusion or significant stenosis in the right [employer]. No aneurysm. Left posterior cerebral artery: No occlusion or significant stenosis in the left [employer]ORT. No aneurysm. Brain: No definite mass, mass effect, or midline shift. Cerebral ventricles: No ventriculomegaly. Bones/joints: Unremarkable. No acute fracture. Soft tissues: Unremarkable. IMPRESSION: No large vessel occlusion or significant stenosis. PROCEDURE INFORMATION: Exam: CTA Neck With Contrast Exam date and time: 10/07/2022 9:19 PM Age: 66 years old Clinical indication: Stroke-like symptoms; Altered mental status/memory loss and dizziness/giddiness and headache; Right facial droop; Additional info: Headache, vomiting, right sided facial droop TECHNIQUE: Imaging protocol: Computed tomographic angiography of the neck with contrast. 3D rendering (Not supervised by radiologist): MIP and/or 3D reconstructed images were created by the technologist. Contrast material: OMNIPAQUE 350; Contrast volume: 85 ml; Contrast route: INTRAVENOUS (IV); COMPARISON: CT BRAIN NECK CTA 10/07/2022 8:52 PM FINDINGS: Right common carotid artery: No significant stenosis in the right CCA. No dissection or occlusion. Right internal carotid artery: No significant stenosis of the right ICA extracranial segment. No dissection or occlusion. Right external carotid artery: No occlusion or stenosis of the origin in the right ECA. Left common carotid artery: No significant stenosis in the left CCA. No dissection or occlusion. Left internal carotid artery: No significant stenosis of the left ICA extracranial segment. No dissection or occlusion. Left external carotid artery: No occlusion or stenosis of the origin in the left ECA. Right vertebral artery: No significant stenosis in the right vertebral artery. No dissection or occlusion. Left vertebral artery: No significant stenosis in the left vertebral artery. No dissection or occlusion. Pharynx: There is a slightly prominent appearance of the lingual tonsils. Soft tissues: Normal. No significant soft tissue swelling. Bones/joints: No acute fracture. Lungs: Small regions of ground-glass opacity noted in the bilateral lung apices. A 3 mm nodule is seen in the right lung apex. IMPRESSION: 1. No significant carotid stenosis. No arterial occlusion or dissection. 2. Small ground-glass pulmonary partially visualized. Correlate with clinical findings to evaluate for possible pulmonary edema/mild interstitial inflammatory/infectious process. REFERENCES: NASCET CRITERIA. The degree of stenosis in the cervical segment of the internal carotid artery is based on NASCET criteria. Normal is no stenosis. Mild is less than 50% stenosis. Moderate is 50-69% stenosis. Severe is 70% to 99% stenosis. Total occlusion is no detectable patent lumen. Dictated and Authenticated by: Jelly Marvin MD. Ordering:JERSEY Cueto MD
[2022-10-07 23:20] VITALS: BP 124/74; PULSE 73; RESP 14; TEMP 36.4; O2SAT 93
== END 2022-10-07 22:37 | disposition home or self-care (01) ==
PROVIDERS: Emergency Provider Student in an Organized Health Care Education/Training Program; PCP Family Medicine
DX: R41.82 Altered mental status, unspecified (principal); E87.6 Hypokalemia; I10 Essential (primary) hypertension; Z85.828 Personal history of other malignant neoplasm of skin; Z85.038 Personal history of other malignant neoplasm of large intestine; Z79.899 Other long term (current) drug therapy; G81.94 Hemiplegia, unspecified affecting left nondominant side; R29.700 NIHSS score 0
CPT/HCPCS: 70496; 70498; 80053; 83690; 93005; 96361; 96365; 96372; 96375; 99285; 80320; 83735; 84443; 84484; 85025; 85610; 85730; 93010; J2405; J3480; J3490

== ENCOUNTER 2022-11-03 13:01 | Outpatient (REF) | payer MEDICARE, BC, SELFPAY ==
[2022-11-03 15:05] LABS: ALT 28 U/L (14-59); AST 31 U/L (15-37); Albumin 4.1 g/dL (3.4-5.0); Alkaline Phosphatase 77 U/L (46-116); Anion Gap 7.6 mmol/L (3-11); BUN 19 mg/dL (7-18); CO2 29.4 mmol/L (21.0-32.0); CREATININE 0.9 mg/dL (0.55-1.02); Calcium 9.3 mg/dL (8.5-10.1); Chloride 98 mmol/L (98-107); Estimated GFR 69.64 (mL/min/1.73m2); Glucose 106 mg/dL (74-106); Potassium 4.1 mmol/L (3.5-5.1); Sodium 135 mmol/L (136-145); Total Protein 8.2 g/dL (6.4-8.2)
== END 2022-11-03 13:02 | disposition home or self-care (01) ==
LOC: NCHCN 13:01
PROVIDERS: PCP Family Medicine; Visit Provider Family Medicine
DX: R74.8 Abnormal levels of other serum enzymes (principal); E87.6 Hypokalemia; F10.10 Alcohol abuse, uncomplicated
CPT/HCPCS: 80053

== ENCOUNTER 2023-04-26 15:37 | Outpatient (REF) | payer MEDICARE, BC, SELFPAY ==
[2023-04-26 15:15] LABS: HCT 40.6 % (36.0-46.0); HGB 13.5 g/dL (11.2-15.7); MCH 29.2 pg (27.0-33.0); MCHC 33.3 % (32.0-36.0); MCV 88 fL (80-95); MPV 10.4 fL (8.0-11.0); Platelet Count 369 10^3/uL (130-400); RBC 4.63 10^6/uL (3.93-5.22); RDW 14.9 % (11.7-14.6); RDW-SD 47.9 fL; WBC 5.75 10^3/uL (4.4-10.8)
[2023-04-26 15:59] LABS: Anion Gap 5.6 mmol/L (3-11); BUN 17 mg/dL (7-18); CO2 28.4 mmol/L (21.0-32.0); CREATININE 0.8 mg/dL (0.55-1.02); Chloride 99 mmol/L (98-107); Estimated GFR 80.21 (mL/min/1.73m2); FREE T4 1.01 ng/dL (0.76-1.46); Glucose 108 mg/dL (74-106); Potassium 4.2 mmol/L (3.5-5.1); Sodium 133 mmol/L (136-145); TSH 2.24 uIU/mL (0.36-3.74)
== END 2023-04-26 15:38 | disposition home or self-care (01) ==
LOC: NCHCN 15:37
PROVIDERS: PCP Family Medicine; Visit Provider Physician Assistant
DX: R42 Dizziness and giddiness (principal); I10 Essential (primary) hypertension
CPT/HCPCS: 80048; 85027; 84439; 84443

== ENCOUNTER 2023-05-07 18:11 | Outpatient (REF) | payer MEDICARE, BC, SELFPAY ==
[2023-05-07 18:41] LABS: Anion Gap 8.6 mmol/L (3-11); BUN 18 mg/dL (7-18); CO2 28.4 mmol/L (21.0-32.0); CREATININE 0.9 mg/dL (0.55-1.02); Calcium 9.5 mg/dL (8.5-10.1); Chloride 99 mmol/L (98-107); Estimated GFR 69.64 (mL/min/1.73m2); Glucose 100 mg/dL (74-106); Potassium 3.8 mmol/L (3.5-5.1); Sodium 136 mmol/L (136-145)
== END 2023-05-07 18:12 | disposition home or self-care (01) ==
LOC: NCHCN 18:11
PROVIDERS: PCP Family Medicine; Visit Provider Nurse Practitioner Family
DX: I10 Essential (primary) hypertension (principal); E87.6 Hypokalemia
CPT/HCPCS: 80048; 83735

== ENCOUNTER 2023-06-19 03:51 | Outpatient (CLI) | payer MEDICARE, BC, SELFPAY ==
--- NOTE | 2023-06-19 | DI.MAMMO_ITS ---
Exam(s) MAMMO SCREENING EXAM: MAMMO SCREENING CLINICAL HISTORY: SCREENING, Z12.39, ADULT PREVENTATIVE CARE TECHNIQUE: Mammograms were interpreted according to the usual protocol including computer analysis w [employer] Mobile CAD system, tomosynthesis and C-view imaging. COMPARISON: 2014 and 2021 FINDINGS: The breasts are composed of scattered fibroglandular densities, Breast Density category B. No suspicious masses or suspicious microcalcifications are seen. No skin thickening or abnormal axillary lymph nodes are seen. There has been no significant change from prior exams. IMPRESSION: BI-RADS Category 1, Negative mammogram Yearly screening mammography is recommended. Breast Density - Category B, scattered fibroglandular densities. A negative radiographic report should not delay biopsy if a dominant or clinically suspicious mass is present. Up to ten percent of cancers are not identified on mammography. A negative report may reinforce clinical impression. Adenosis and dense breasts may obscure an underlying neoplasm. False positive reports average 6 to 10%. Patient will receive a letter notifying them of these results.
== END 2023-06-19 04:11 ==
LOC: DI 03:54
PROVIDERS: PCP Family Medicine; Visit Provider Family Medicine
DX: Z12.31 Encounter for screening mammogram for malignant neoplasm of breast (principal)
CPT/HCPCS: 77063; 77067

== ENCOUNTER → 2023-07-16 01:43 | Outpatient (CLI) | payer MEDICARE, BC, SELFPAY ==
--- NOTE | 2023-07-16 | DI.CTLCSR_ITS ---
Exam(s) CT CHEST LUNG CANCER SCREEN EXAM: CT CHEST LUNG CANCER SCREEN CLINICAL HISTORY: FORMER SMOKER Z87.891 SCREENING FOR LUNG CANCER TECHNIQUE: Imaging Protocol: Axial computed tomography images with coronal and sagittal reformatted images were created and reviewed. Low dose screening protocol. COMPARISON: CT CT CHEST LUNG CANCER SCREEN from 02/15/2022 FINDINGS: Tracheobronchial tree: No bronchiectasis or mucus plugging.. Mediastinum and Mireya: No dominant adenopathy or fluid collection. Pulmonary parenchyma: Mild respiratory motion. No consolidation or dominant measurable mass. No visi ble emphysematous changes. Lung Nodules: None. Pleura: No effusion. No pneumothorax. Heart: The heart is not dilated. Mild coronary artery calcifications are seen. Aorta: Thoracic aorta non-dilated. Mild atherosclerotic changes. Upper abdomen: Small hiatal hernia. Bones: Of changes lower thoracic spine. Soft Tissues: Unremarkable. IMPRESSION: No suspicious pulmonary nodules. Lung RADS Cat 1 - Negative: No nodules and definitely benign nodules Lung-RADS 1.0 CATEGORIES: Category 0 - Prior chest CT exam(s) being located for comparison. Category 1 - Annual screening in 12 months. No nodules or definitely benign nodules. Category 2 - Annual screening in 12 months. Benign appearance. Nodules with low likelihood of becomin g active cancer. Category 3 - 6-month follow-up. Probably benign. Short-term follow-up suggested. Nodules with low lik elihood of becoming active cancer. Category 4A - 3-month follow-up and CT/PET if >8 mm in size. Suspicious finding. Findings which requi re additional testing. Category 4B - Findings which require additional testing and tissue sampling. Category 4X - Category 3 or 4 nodules with additional features or imaging findings that increases the suspicion of malignancy. Modifier S- Potentially clinically significant findings (non lung cancer) RADIATION DOSE DELIVERED: 81.66mGy.cm Total DLP DATA REPOSITORY: All CT scans at this facility are submitted to the National Radiology Data Registry (NRDR) Dose Index Registry (DIR) with the [employer] (ACR). RADIATION OPTIMIZATION: All CT scans at this facility use at least one of these dose optimization te chniques: automated exposure control; mA and/or kV adjustment per patient size (includes targeted exa ms where dose is matched to clinical indication); or iterative reconstruction.
== END ==
PROVIDERS: PCP Family Medicine; Visit Provider Family Medicine
DX: Z87.891 Personal history of nicotine dependence (principal); Z12.2 Encounter for screening for malignant neoplasm of respiratory organs
CPT/HCPCS: 71271

== ENCOUNTER → 2023-08-08 11:22 | Outpatient (BNVA) | payer MEDICARE, BC, SELFPAY | PROVIDERS: PCP Family Medicine; Referring Provider Family Medicine; Visit Provider Surgery | DX: Z12.11 Encounter for screening for malignant neoplasm of colon (principal); D12.6 Benign neoplasm of colon, unspecified ==

== ENCOUNTER 2023-08-14 08:06 | Day surgery (SDC) | payer MEDICARE, BC, SELFPAY ==
--- NOTE | 2023-08-14 06:24 | W.ANESPRE ---
General Info Date of Service Date Performed: 08/14/23 Height: 5 ft 8.5 in Weight: 76.204 kg Body Mass Index (BMI): 25.2 Surgical Procedure: Operation Date: 08/14/23 09:50 Proposed Procedure Side Surgeon p Colonoscopy Beltran Khan MD Meds Allergies and Home Medications Allergies Allergy/AdvReac Type Severity Reaction Status Date / Time No Known Allergies Allergy Unverified 08/14/23 09:16 Home Medication Medication Instructions Recorded multivitamin (Daily Multi-Vitamin 1 ea PO DAILY 10/25/15 tablet) chlorthalidone 25 mg tablet 12.5 mg PO DAILY #0 tabs 08/10/18 ascorbic acid 30 mg-collagen, 1 tab PO DAILY 08/08/23 hydrolyzed 833.3 mg tablet (Collagen Skin Renewal) bisacodyl 5 mg tablet,delayed 5 mg PO ONCE colonscopy bowel prep 08/08/23 release (Dulcolax (bisacodyl)) #4 tabs losartan 100 mg tablet 100 mg PO DAILY 08/08/23 polyethylene glycol 3350 17 238 g PO ONCE colonoscopy prep 08/08/23 gram/dose oral powder #238 grams Current Visit Medications: Current Medications Generic Name Dose Route Start Last Admin Trade Name Freq PRN Reason Stop Dose Admin Ringer's Solution 1,000 mls @ 80 mls/hr 08/14/23 06:00 IV 09/12/23 23:59 INFUSION CANDACE IV Miscellaneous Supplies 1 each 08/14/23 06:00 Iv Access IV 09/12/23 23:59 DIRECTED CANDACE Sodium Chloride 0 ml 08/14/23 06:00 Normal Saline Flush 10 Ml Syr IV 09/12/23 23:59 PRN PRN Sodium Chloride 0 ml 08/14/23 06:00 Normal Saline 10 Ml Vial IJ 09/12/23 23:59 DIRECTED PRN Sterile Water 0 ml 08/14/23 06:00 Water,Injection,Sterile 10 Ml Vial IJ 09/12/23 23:59 DIRECTED PRN PFSH Active Problems Active Problems: Problem Status Onset Code Seborrheic keratoses L82.1 Colon polyp, hyperplastic ~04/2021 K63.5 Serrated adenoma of colon ~04/2021 D12.6 Tubular adenoma ~12/2019 D36.9 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 Barretts esophagus K22.70 Esophagitis determined by endoscopy K20.9 Internal hemorrhoids without complication K64.8 Gastritis K29.70 Hx of malignant neoplasm of colon Z85.038 Anemia D64.9 Status post-operative repair of hip fracture Z98.890, Z87.81 Closed right hip fracture 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 Postoperative anemia D64.9 Hypokalemia E87.6 History of hypertension Z86.79 Anxiety F41.9 Medical History Medical History Abdominal pain Abnormal mammography Actinic keratosis Acute arthritis Alcohol use Chronic anxiety Colon cancer stage 2 per referral Elevated liver enzymes Fracture, intertrochanteric, right femur s/p IM nailing History of peptic ulcer disease History of traumatic fracture of hip Hyperkalemia Hypertension Melanoma Occult blood in stools Osteoporosis Polyuria Skin cancer, basal cell Tobacco use Surgical History Surgical History Colonoscopy - MAC (~12/22/19) 06/05- colon cancer and pre-cancerous polyps 10/2018- hyperplastic polyp H/O esophagogastroduodenoscopy (~12/22/19) 10/2018- gastric ulcers, reflux esophagitis Hemicolectomy (06/13/18) History of colonoscopy (~04/2021) Tobacco Smoking/Tobacco Use Status: Former Tobacco Use Alcohol Alcohol Intake: current Alcohol intake frequency: holidays/special occasions only Alcohol type: wine Substance Use Substance use: Never Substance use type: does not use Vital Signs and Lab Results Lab Results Blood Type / Crossmatch: No Data to Display Complete Blood Count: No Data to Display Complete Metabolic Panel: No Data to Display Liver Function Panel: No Data to Display Coagulation Panel: No Data to Display Cardiac Panel: No Data to Display Arterial Blood Gas: No Data to Display Venous Blood Gas: No Data to Display Pancreas Panel: No Data to Display Thyroid Panel: No Data to Display Infectious Disease: No Data to Display Blood Cultures: No Data to Display Toxicology Panel: No Data to Display Imaging and Studies Imaging and Studies Study information below may be from another EMR and interpreted by another provider. Please see original notes in EMR for more complete details. EKG Summary: 10/10: sinus rhythm. Anesthesia Assessment and Plan Anesthesia History Personal History: No History of Anesthesia Complications Family History: No Family History of Anesthesia Complications Exercise Tolerance Exercise Tolerance: Metabolic Equivalents>4 Cardiac & Pulmonary Exam Cardiac Exam: Normal S1/S2 Heart Sounds Pulmonary Exam: Clear Bilateral Breath Sounds Implantable Cardiac Device Does patient have a Pacemaker or an ICD?: No Airway Exam Known Difficult Airway: No Mallampati Class: 2 Mouth Opening: Normal (> 3cm) Thyromental Distance: Greater than 3 cm Neck Range of Motion: Full ROM Neck Circumference: Normal Teeth Condition: Normal Dentition (Right front tooth removable partial, in securely) and Removable Dentures/Plates Upper ASA Classification ASA Score: ASA 2 Emergency Case?: No NPO Status NPO Status: NPO Clears >2 hours, Solids >8 hours Anesthesia Plan Resuscitation Status: Full Code Anesthesia Technique: General Anesthesia Airway Planned: Natural Airway Monitors Used: Standard Monitors Preoperative Comments:: 67 yo female for colo. Sig PMHx: HTN, esophagitis/gastritis, anxiety. Previous anes: - multiple colos, prop, natural airway, no issues. - hip fracture, spinal, no issues. - hemicoloectomy, mac 3 grade 2, easy mask.
[2023-08-14 09:08] VITALS: BP 152/84; PULSE 65; RESP 16; TEMP 36.2; O2SAT 99
[2023-08-14] MEDS: Lactated Ringers 1,000 ML 80 ML IV (09:25)
[2023-08-14 09:41] VITALS: BMI 25.2
--- NOTE | 2023-08-14 09:49 | COLE_ITS ---
Date of service: 08/14/23 Time of Service: 09:49 Colonoscopy Report Procedure Description: Procedures performed: 1. Colonoscopy with snare polypectomy x3 2. Ablation/fulguration/destruction of colon polyp x1 3. Cold forceps polypectomy/biopsy x2 Preoperative diagnosis: Surveillance colonoscopy, history of colon cancer Postoperative diagnosis: Colon polyps, grade 1 internal hemorrhoids Surgeon: Jerry Khan Anesthesia: Yimi Indication for procedure: Patient is a 67-year-old woman who has no symptoms but has a personal history of colorectal cancer 5 years ago. She had a right hemicolectomy done open at that time. Prior surveillance colonoscopies have found some adenomatous polyps. At some point some of the polyps were sessile serrated adenomas. Some of the polyps have also been hyperplastic. Her last colonoscopy was about 2-1/2 years ago. No family history outside of her personal history. No other intra-abdominal surgical history. Findings: The ileocolic anastomosis appears normal. No polyps in the transverse colon. At 40 cm, somewhere in the descending colon, there was a small 1-2 cm bed of polypoid tissue. I biopsied this with cold forceps technique and then used the tip of the hot snare to ablate the entire area. Further down the sigmo id colon a 5-7 mm sessile polyp was removed with hot snare technique. In the rectum a 2-3 mm sessile polyp that appeared adenomatous was removed with cold forceps technique. In the distal sigmoid and rectum there are scattered, hyperplastic?appearing polyps all over (10?15). Mild hemorrhoidal disease. Surveillance/follow-up recommendations: Depends on the path results of the biopsy at 40 cm. This area looked concerning to me and if it is truly polyploid, I think a repeat colonoscopy will need to be done in 6 to 9 months to ensure this area is not having any regrowth. If the biopsy is otherwise normal tissue, then a repeat colonoscopy in 3 years should be done. Complications: None Blood loss: Minimal Specimens:?? YES Quality of Prep:?? Good Procedure in detail: Written consent was obtained from the patient who was in agreement with the risks, benefits and indications of the procedure.? We went to the endoscopy suite and laid the patient in left lateral decubitus position.? A nesthesia was administered which was tolerated well.? A timeout was performed and when we are all in agreement we began the procedure. Digital rectal exam and visual examination was performed and within normal limits.? A well?lubricated colonoscope was advanced without difficulty all the way to the ileocolic anastomosis identified by villi of the small intestine. The scope was then slowly withdrawn.?? Retroflexion was performed in the rectum.? The findings/interventions are noted above. The scope was then removed and the patient tolerated the procedure well and was then taken back to the PACU in hemodynamically stable condition.
--- NOTE | 2023-08-14 09:56 | W.PM.DSUDISC ---
Date of service: 08/14/23 Time of Service: 09:56 Discharge Plan Disposition Patient Disposition: Home Condition: Good Discharge Details Attending Provider: Beltran Khan Primary Care Provider: Alec Neff Home Meds and New Rx's Prescriptions: No Action Collagen Skin Renewal 30-833.3 mg tablet 1 tab PO DAILY polyethylene glycol 3350 17 gram/dose powder 238 g PO ONCE Qty: 238 0RF Rx Instructions: take per colonoscopy instructions bisacodyl [Dulcolax (bisacodyl)] 5 mg tablet,delayed release (DR/EC) 5 mg PO ONCE Qty: 4 0RF Rx Instructions: take per colonoscopy instructions multivitamin [Daily Multi-Vitamin] 1 EACH tablet 1 ea PO DAILY losartan 100 mg tablet 100 mg PO DAILY Patient Comments: TAKE ONE TABLET BY MOUTH EVERY DAY chlorthalidone 25 mg Tablet 12.5 mg PO DAILY Qty: 0 0RF Discharge Instructions Additional Instructions: Findings: More polyps were found today. Depending on the results of these polyps, you may need to do another colonoscopy sooner. Stand Alone Forms: Colonoscopy Post Instructions Activity:: Activity as Tolerated Diet:: As Tolerated Discharge Orders Discharge Orders: Discharge Order (Routine); Ordered 08/14/23 Ordered By: Beltran Khan DS: Diagnosis Discharge Diagnosis (1) Hx of malignant neoplasm of colon: Status: Resolved Asessment and Plan: FINDINGS: More polyps were found today. Depending on the results of these polyps, you may need to do another colonoscopy sooner.
--- NOTE | 2023-08-14 10:15 | BOWEL_PTH ---
PATIENT: Emily Miles LOC: [facility] U#:[id number] AGE/SX: 67/F ROOM: RE08/14/[address]: Beltran Khan : 1955 BED: DIS: 08/14/2023 SPEC #: [id number] RECD: 08/14/23 13:01 STATUS: [facility] #: [id number] JAMES: 08/14/23 10:[address]: Beltran Khan DEPT: Surgical Specimen RECD BY: Arabella Jacobo ENTERED: 08/14/23 13:02 SP TYPE: Bowel OTHR DR: Alec Neff Tissues: 1 - BIOPSY BOWEL 2 - BIOPSY BOWEL 3 - BIOPSY BOWEL Procedures: GROSS AND MICRO LEVEL 4 Comments: [id number]
[2023-08-14 10:35] VITALS: BP 112/78; PULSE 68; RESP 16; TEMP 36.2; O2SAT 97
--- NOTE | 2023-08-14 10:42 | W.ANESPOSTOP ---
Postoperative Evaluation Date, Time and Location Date Performed: 08/14/23 Time Performed: 10:42 Patient Location: Day Surgery Unit Vital Signs Most Recent Imported Vital Signs: Most Recent Vital Signs Temp Pulse Resp BP Pulse Ox 36.2 C L 68 16 112/78 97 08/14/23 10:35 08/14/23 10:35 08/14/23 10:35 08/14/23 10:35 08/14/23 10:35 Pain Score Most Recent Pain Score: Most Recent Pain Score Pain Level 0 08/14/23 10:35 Assessment Mental Status: Awake (Alert & Oriented to Patient Baseline) Airway and Respiratory Function: Patent airway with normal (patient baseline) respiratory exam Cardiovascular Function: Hemodynamically Stable Hydration Status: Adequately Hydrated Nausea & Vomiting: No Nausea or Vomiting Pain: Pt. Denies Any Pain Peripheral Nerve Block: Patient did not receive a nerve block
[2023-08-14 10:59] VITALS: BP 158/87; PULSE 60; RESP 16; TEMP 36.4; O2SAT 98
== END 2023-08-14 11:48 | disposition home or self-care (01) ==
PROVIDERS: PCP Family Medicine; Visit Provider Student in an Organized Health Care Education/Training Program
PROC: 0DJD8ZZ Inspection of Lower Intestinal Tract, Via Natural or Artificial Opening Endoscopic (ICD-10-PCS; CPT 45378; principal; 2023-08-14 09:45)
DX: Z12.11 Encounter for screening for malignant neoplasm of colon (principal); Z85.038 Personal history of other malignant neoplasm of large intestine; D12.8 Benign neoplasm of rectum; K64.0 First degree hemorrhoids; Z98.0 Intestinal bypass and anastomosis status; Z90.49 Acquired absence of other specified parts of digestive tract; D12.5 Benign neoplasm of sigmoid colon
CPT/HCPCS: 45385; 45384; 45380; 88305; J2001

== ENCOUNTER → 2023-10-24 12:46 | Outpatient (BNVA) | payer MEDICARE, BC, SELFPAY | PROVIDERS: PCP Family Medicine; Referring Provider Family Medicine; Visit Provider Student in an Organized Health Care Education/Training Program | DX: D12.6 Benign neoplasm of colon, unspecified (principal) | CPT/HCPCS: 99214 ==

== ENCOUNTER → 2024-01-29 03:18 | Outpatient (CLI) | payer MEDICARE, BC, SELFPAY ==
--- NOTE | 2024-01-29 | DI.RAD_ITS ---
Exam(s) XR SHOULDER LT COMPLETE 2+V EXAM: XR SHOULDER LT COMPLETE 2+V CLINICAL HISTORY: PAIN LT SHOULDER, M25.512. TECHNIQUE: 2D digital imaging was performed of the left shoulder. Five images were obtained. AP, G rashey, Y-view and axillary views were obtained. COMPARISON: No exams were available for comparison FINDINGS: BONES: No acute fracture is present. No bony destructive lesion is seen. JOINTS: No dislocation present. Mild degenerative changes of the acromioclavicular joint. The glenoh umeral joint is unremarkable. SOFT TISSUE: Normal. IMPRESSION: Mild degenerative changes of the AC joint. DATA REPOSITORY: RADIATION DOSE DELIVERED:
== END ==
PROVIDERS: PCP Family Medicine; Visit Provider Family Medicine
DX: M25.512 Pain in left shoulder (principal)
CPT/HCPCS: 73030

== ENCOUNTER → 2024-05-05 08:54 | Outpatient (BNVA) | payer MEDICARE, BC, SELFPAY | PROVIDERS: PCP Family Medicine; Referring Provider Family Medicine; Visit Provider Physical Therapy Assistant | DX: Z12.11 Encounter for screening for malignant neoplasm of colon (principal); Z86.010 Personal history of colon polyps ==

== ENCOUNTER 2024-05-19 12:53 | Day surgery (SDC) | payer MEDICARE, BC, SELFPAY ==
[2024-05-19 13:27] VITALS: BP 134/94; PULSE 75; RESP 16; TEMP 36.6; O2SAT 98
[2024-05-19] MEDS: Lactated Ringers 1,000 ML 80 ML IV (13:35)
--- NOTE | 2024-05-19 14:03 | W.ANESPRE ---
General Info Date of Service Date Performed: 05/19/24 Height: 5 ft 8.5 in Weight: 70.5 kg Body Mass Index (BMI): 23.3 Surgical Procedure: Operation Date: 05/19/24 13:35 Proposed Procedure Side Surgeon p Colonoscopy Beltran Khan MD Meds Allergies and Home Medications Allergies Allergy/AdvReac Type Severity Reaction Status Date / Time No Known Allergies Allergy Verified 05/19/24 13:08 Home Medication Medication Instructions Recorded multivitamin (Daily Multi-Vitamin 1 ea PO DAILY 10/25/15 tablet) chlorthalidone 25 mg tablet 12.5 mg (1/2 x 25 mg) PO DAILY #0 08/10/18 tabs ascorbic acid 30 mg-collagen, 1 tab PO DAILY 08/08/23 hydrolyzed 833.3 mg tablet (Collagen Skin Renewal) losartan 100 mg tablet 100 mg PO DAILY 08/08/23 Current Visit Medications: Current Medications Generic Name Dose Route Start Last Admin Trade Name Freq PRN Reason Stop Dose Admin Ringer's Solution 1,000 mls @ 80 mls/hr 05/19/24 06:00 05/19/24 13:35 IV 05/19/24 23:59 80 mls/hr INFUSION CANDACE Administration IV Miscellaneous Supplies 1 each 05/19/24 06:00 Iv Access IV 05/19/24 23:59 DIRECTED CANDACE Sodium Chloride 0 ml 05/19/24 06:00 Normal Saline Flush 10 Ml Syr IV 05/19/24 23:59 PRN PRN Sodium Chloride 0 ml 05/19/24 06:00 Normal Saline 10 Ml Vial IJ 05/19/24 23:59 DIRECTED PRN Sterile Water 0 ml 05/19/24 06:00 Water,Injection,Sterile 10 Ml Vial IJ 05/19/24 23:59 DIRECTED PRN PFSH Active Problems Active Problems: Problem Status Onset Code Seborrheic keratoses L82.1 Colon polyp, hyperplastic ~04/2021 K63.5 Serrated adenoma of colon ~04/2021 D12.6 Tubular adenoma ~12/2019 D36.9 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 Barretts esophagus K22.70 Esophagitis determined by endoscopy K20.9 Internal hemorrhoids without complication K64.8 Gastritis K29.70 Hx of malignant neoplasm of colon Z85.038 Anemia D64.9 Status post-operative repair of hip fracture Z98.890, Z87.81 Closed right hip fracture 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 Postoperative anemia D64.9 Hypokalemia E87.6 History of hypertension Z86.79 Anxiety F41.9 Medical History Medical History Colon cancer stage 2 per referral History of traumatic fracture of hip History of peptic ulcer disease Alcohol use Acute arthritis Osteoporosis Abnormal mammography Elevated liver enzymes Fracture, intertrochanteric, right femur s/p IM nailing Hyperkalemia Hypertension Abdominal pain Chronic anxiety Occult blood in stools Tobacco use Melanoma Actinic keratosis Skin cancer, basal cell Polyuria Surgical History Surgical History History of colonoscopy (~04/2021) H/O esophagogastroduodenoscopy (~12/22/19) 10/2018- gastric ulcers, reflux esophagitis Hemicolectomy (06/13/18) Colonoscopy - MAC (~07/2023) 06/05- colon cancer and pre-cancerous polyps 10/2018- hyperplastic polyps--polups removed 2022 Tobacco Smoking/Tobacco Use Status: Former Tobacco Use Alcohol Alcohol Intake: current Alcohol intake frequency: a few times a week Alcohol type: wine Substance Use Substance use: Never Substance use type: does not use Vital Signs and Lab Results Vital Signs Most Recent Vital Signs in EMR: Most Recent Vital Signs Temp Pulse Resp BP Pulse Ox 36.6 C 75 16 134/94 H 98 05/19/24 13:27 05/19/24 13:27 05/19/24 13:27 05/19/24 13:27 05/19/24 13:27 Lab Results Blood Type / Crossmatch: No Data to Display Complete Blood Count: No Data to Display Complete Metabolic Panel: No Data to Display Liver Function Panel: No Data to Display Coagulation Panel: No Data to Display Cardiac Panel: No Data to Display Arterial Blood Gas: No Data to Display Venous Blood Gas: No Data to Display Pancreas Panel: No Data to Display Thyroid Panel: No Data to Display Infectious Disease: No Data to Display Blood Cultures: No Data to Display Toxicology Panel: No Data to Display Imaging and Studies Imaging and Studies Study information below may be from another EMR and interpreted by another provider. Please see original notes in EMR for more complete details. EKG Summary: 10/10: sinus rhythm. Anesthesia Assessment and Plan Anesthesia History Personal History: No History of Anesthesia Complications Family History: No Family History of Anesthesia Complications Exercise Tolerance Exercise Tolerance: Metabolic Equivalents>4 Pertinent Negatives Pertinent Negatives: No Symptoms of GERD Cardiac & Pulmonary Exam Cardiac Exam: Normal S1/S2 Heart Sounds Pulmonary Exam: Clear Bilateral Breath Sounds Implantable Cardiac Device Does patient have a Pacemaker or an ICD?: No Airway Exam Known Difficult Airway: No Mallampati Class: 2 Mouth Opening: Normal (> 3cm) Thyromental Distance: Greater than 3 cm Neck Range of Motion: Full ROM Neck Circumference: Normal Teeth Condition: Normal Dentition (Right front tooth removable partial, in securely) and Removable Dentures/Plates Upper ASA Classification ASA Score: ASA 2 Emergency Case?: No NPO Status NPO Status: NPO Clears >2 hours, Solids >8 hours Anesthesia Plan Resuscitation Status: Full Code Anesthesia Technique: General Anesthesia Airway Planned: Natural Airway Monitors Used: Standard Monitors Preoperative Comments:: From last anesthetic preop: 67 yo female for colo. Sig PMHx: HTN, esophagitis/gastritis, anxiety. Previous anes: - multiple colos, prop, natural airway, no issues. - hip fracture, spinal, no issues. - hemicoloectomy, mac 3 grade 2, easy mask. 08/15/2023 intraop: hypertensive to start, settled nicely. Appeared to be an uneventful anesthetic. Per patient went home feeling very anxious and unsettled. Requested further medication for this visit today, plan is for IV midazolam
[2024-05-19 14:40] VITALS: BMI 23.3
--- NOTE | 2024-05-19 15:53 | BOWEL_PTH ---
PATIENT: Emily Miles LOC: [facility] U#:[id number] AGE/SX: 68/F ROOM: RE05/19/[address]: Beltran Khan : 1955 BED: DIS: 05/19/2024 SPEC #: [id number] RECD: 05/19/24 18:23 STATUS: [facility] #: [id number] JAMES: 05/19/24 15:[address]: Beltran Khan DEPT: Surgical Specimen RECD BY: Arabella Jacobo ENTERED: 05/19/24 18:24 SP TYPE: Bowel OTHR DR: Alec Neff Tissues: 1 - BIOPSY BOWEL 2 - BIOPSY BOWEL 3 - BIOPSY BOWEL 4 - BIOPSY BOWEL 5 - BIOPSY BOWEL 6 - BIOPSY BOWEL 7 - BIOPSY BOWEL 8 - BIOPSY BOWEL Procedures: GROSS AND MICRO LEVEL 4 Comments: [id number]
[2024-05-19 16:20] VITALS: BP 126/84; PULSE 77; RESP 16; TEMP 36.2; O2SAT 97
--- NOTE | 2024-05-19 16:37 | W.COLOREPORT ---
Date of service: 05/19/24 Time of Service: 16:37 Colonoscopy Report Procedure Description: PROCEDURES PERFORMED: 1. Colonoscopy with hot snare polypectomy x6 2. Ablation/fulguration/destruction of colon polyp times x2 PREOPERATIVE DIAGNOSIS: Surveillance colonoscopy, colon cancer history, colon polyps POSTOPERATIVE DIAGNOSIS: Colon polyps, grade 1 internal hemorrhoids SURGEON: Jerry Khan MD INDICATION for procedure: The patient is a 68-year-old woman with a history of colon cancer cured by right hemicolectomy. Separately, she has had many polyps removed on previous colonoscopies ranging from tubular adenomas to sessile serrated polyps. At 40 cm on her scope 6 months ago, there is an entire bed of polypoid?appearing tissue that proved to be polyp on biopsy. This was ablated aggressively on the last colonoscopy. FINDINGS: At the ileocolic anastomosis, a small 2 to 3 mm sessile polyp was removed on the junction of the colon and small bowel. This was removed with cold forceps technique. In the descending colon, a small 2-3 mm sessile polyp was removed with hot snare technique. At 70 cm another polyp was removed with hot snare technique. At 50 cm another small polyp was removed with hot snare technique. The area of interest, at 40cm, appears to be drastically improved. There was 1 small polyp found in this area and it was regrowing out of what looks to be prior scar. I resected this polyp with hot snare technique. Then I used the tip of the hot snare to ablate a 1 cm diameter all around it. Lastly, I took a cold forcep biopsy from and I normal?appearing scar area in the perimeter/periphery - I did this to confirm that it is benign tissue around this area. In the sigmoid colon another 3-5 mm sessile polyp was removed with hot snare technique. In the rectum, another polyp was seen near the dentate line and removed with cold forceps technique on retroflexion. There is no obvious diverticular disease. Minimal grade 1 internal hemorrhoids are present. SURVEILLANCE interval/FOLLOW-UP: I recommend repeating another colonoscopy in 1 year. She probably needs yearly colonoscopies as long as this is polyp?growth keeps going on. SPECIMENS: yes EBL: Minimal COMPLICATIONS: None QUALITY of prep: Excellent Procedure in detail: The patient gave written consent and was in agreement with the indications, the potential risks as well as the benefits of the procedure. They were taken to the endoscopy suite and laid in the left lateral decubitus position. A timeout was performed and anesthesia was administered which was tolerated well. I started the procedure. Digital rectal and visual examination was performed and grossly within normal limits. A well-lubricated flexible colonoscope was then introduced and passed without any notable difficulty all the way to the ileocolic anastomosis. The scope was then slowly withdrawn with the above-noted findings. The patient tolerated the procedure well and was taken to the PACU in hemodynamically stable condition.
--- NOTE | 2024-05-19 16:37 | W.PM.DSUDISC ---
Date of service: 05/19/24 Time of Service: 16:37 Discharge Plan Disposition Patient Disposition: Home Condition: Good Discharge Details Attending Provider: Beltran Khan Primary Care Provider: Alec Neff Home Meds and New Rx's Prescriptions: No Action Collagen Skin Renewal 30-833.3 mg tablet 1 tab PO DAILY multivitamin [Daily Multi-Vitamin] 1 EACH tablet 1 ea PO DAILY losartan 100 mg tablet 100 mg PO DAILY Patient Comments: TAKE ONE TABLET BY MOUTH EVERY DAY chlorthalidone 25 mg Tablet 12.5 mg PO DAILY Qty: 0 0RF Discharge Instructions Additional Instructions: Overall everything looked really good at the one spot we have talked about. There may have been a single small polyp growing back at that location and I removed it. Unfortunately, I found 10 new polyps, all very small and I removed or destroyed them all. This is concerning though, with how quickly new ones have grown back. I recommend repeating another colonoscopy in 1 year because of this. Stand Alone Forms: Anesthesia Discharge Inst., Colonoscopy Post Instructions, Nichole Unger (DSU) Activity:: Activity as Tolerated Diet:: As Tolerated
[2024-05-19 16:55] VITALS: BP 139/83; PULSE 64; RESP 18; TEMP 36.2; O2SAT 97
--- NOTE | 2024-05-19 17:32 | W.ANESPOSTOP ---
Postoperative Evaluation Date, Time and Location Date Performed: 05/19/24 Time Performed: 16:22 Patient Location: Day [facility] Unit Vital Signs Most Recent Imported Vital Signs: Most Recent Vital Signs Temp Pulse Resp BP Pulse Ox 36.2 C L 77 16 126/84 97 05/19/24 16:20 05/19/24 16:20 05/19/24 16:20 05/19/24 16:20 05/19/24 16:20 Pain Score Most Recent Pain Score: Most Recent Pain Score Pain Level 0 05/19/24 16:20 Assessment Mental Status: Awake (Alert & Oriented to Patient Baseline) Airway and Respiratory Function: Patent airway with normal (patient baseline) respiratory exam Cardiovascular Function: Hemodynamically Stable Hydration Status: Adequately Hydrated Nausea & Vomiting: No Nausea or Vomiting Pain: Pt. Denies Any Pain Peripheral Nerve Block: Patient did not receive a nerve block
== END 2024-05-19 17:18 | disposition home or self-care (01) ==
LOC: SUR 12:54
PROVIDERS: PCP Family Medicine; Visit Provider Student in an Organized Health Care Education/Training Program
PROC: 0DJD8ZZ Inspection of Lower Intestinal Tract, Via Natural or Artificial Opening Endoscopic (ICD-10-PCS; CPT 45378; principal; 2024-05-19 13:30)
DX: Z12.11 Encounter for screening for malignant neoplasm of colon (principal); D12.8 Benign neoplasm of rectum; K64.0 First degree hemorrhoids; D12.4 Benign neoplasm of descending colon; D12.5 Benign neoplasm of sigmoid colon
CPT/HCPCS: 45385; 45380; 00123; 88305; J2250; J2704

== ENCOUNTER 2024-06-02 17:57 | Outpatient (REF) | payer MEDICARE, BC, SELFPAY ==
[2024-06-02 18:51] LABS: ESR 16 mm/hr (0-30)
[2024-06-02 18:52] LABS: HCT 38.8 % (36.0-46.0); HGB 13.3 g/dL (11.2-15.7); MCH 29.8 pg (27.0-33.0); MCHC 34.3 % (32.0-36.0); MCV 87 fL (80-95); MPV 10.1 fL (8.0-11.0); Platelet Count 372 10^3/uL (130-400); RBC 4.46 10^6/uL (3.93-5.22); RDW 13.7 % (11.7-14.6); RDW-SD 44.1 fL; WBC 6.13 10^3/uL (4.4-10.8)
[2024-06-02 20:53] LABS: ALT 32 U/L (14-59); AST 27 U/L (15-37); Alkaline Phosphatase 76 U/L (46-116); Anion Gap 11.7 mmol/L (3-11); BUN 24 mg/dL (7-18); CO2 27.3 mmol/L (21.0-32.0); Calcium 9.4 mg/dL (8.5-10.1); Calculated LDL 156 mg/dL (<100); Chloride 99 mmol/L (98-107); Cholesterol 226 mg/dL (<200); Estimated GFR 60.98 (mL/min/1.73m2); Glucose 94 mg/dL (74-106); HDL Cholesterol 58 mg/dL (40-60); Potassium 3.4 mmol/L (3.5-5.1); Sodium 138 mmol/L (136-145); TSH 2.38 uIU/Ml (0.36-3.74); Total Protein 7.7 g/dL (6.4-8.2); Triglyceride 60 mg/dL (<150)
[2024-06-03 18:09] LABS: CRP, High Sensitivity 2.19 mg/L (See Note)
== END 2024-06-02 17:58 | disposition home or self-care (01) ==
LOC: NCHCN 17:57
PROVIDERS: PCP Family Medicine; Visit Provider Nurse Practitioner Family
DX: I10 Essential (primary) hypertension (principal); R51.9 Headache, unspecified
CPT/HCPCS: 80053; 80061; 85027; 85652; 86141; 84443

== ENCOUNTER 2024-08-18 02:27 | Outpatient (CLI) | payer MEDICARE, BC, SELFPAY ==
--- NOTE | 2024-08-18 | DI.CTLCSR_ITS ---
Exam(s) CT CHEST LUNG CANCER SCREEN EXAM: CT CHEST LUNG CANCER SCREEN CLINICAL HISTORY: NICOTINE DEPENDENCE IN REMISSION, F17.201 TECHNIQUE: Imaging Protocol: Axial computed tomography images with coronal and sagittal reformatted images were created and reviewed. Low dose screening protocol. COMPARISON: CT CT CHEST LUNG CANCER SCREEN from 07/16/2023 FINDINGS: Tracheobronchial tree: No bronchiectasis or mucus plugging. Mediastinum and Mireya: No dominant adenopathy or fluid collection. Pulmonary parenchyma: No consolidation or dominant measurable mass. No visible emphysematous changes. Lung Nodules: No suspicious pulmonary nodules. Pleura: No effusion. No pneumothorax. Heart: The heart is not dilated. Mild coronary artery calcifications are seen. Aorta: Thoracic aorta non-dilated. Upper abdomen: Small hiatal hernia. Bones: Prominent endplate osteophytes in the lower thoracic spine. No compression fractures. Soft Tissues: Unremarkable. IMPRESSION: No suspicious pulmonary nodules. Lung RADS Cat 1 - Negative: No nodules and definitely benign nodules Lung-RADS 1.0 CATEGORIES: Category 0 - Prior chest CT exam(s) being located for comparison. Category 1 - Annual screening in 12 months. No nodules or definitely benign nodules. Category 2 - Annual screening in 12 months. Benign appearance. Nodules with low likelihood of becomin g active cancer. Category 3 - 6-month follow-up. Probably benign. Short-term follow-up suggested. Nodules with low lik elihood of becoming active cancer. Category 4A - 3-month follow-up and CT/PET if >8 mm in size. Suspicious finding. Findings which requi re additional testing. Category 4B - Findings which require additional testing and tissue sampling. Category 4X - Category 3 or 4 nodules with additional features or imaging findings that increases the suspicion of malignancy. Modifier S- Potentially clinically significant findings (non lung cancer) RADIATION DOSE DELIVERED: !Error Total DLP DATA REPOSITORY: All CT scans at this facility are submitted to the National Radiology Data Registry (NRDR) Dose Index Registry (DIR) with the [employer] (A[employer]). RADIATION OPTIMIZATION: All CT scans at this facility use at least one of these dose optimization te chniques: automated exposure control; mA and/or kV adjustment per patient size (includes targeted exa ms where dose is matched to clinical indication); or iterative reconstruction.
== END 2024-08-18 02:47 ==
LOC: DI 02:27
PROVIDERS: PCP Family Medicine; Visit Provider Nurse Practitioner Family
DX: Z87.891 Personal history of nicotine dependence (principal); Z12.2 Encounter for screening for malignant neoplasm of respiratory organs
CPT/HCPCS: 71271

== ENCOUNTER 2024-12-12 00:36 | Outpatient (CLI) | payer MEDICARE, BC, SELFPAY ==
--- NOTE | 2024-12-12 | DI.MAMMO_ITS ---
Exam(s) MAMMO SCREENING EXAM: MAMMO SCREENING CLINICAL HISTORY: SCREENING,Z12.31. TECHNIQUE: Bilateral full field digital CC and MLO mammographic images were obtained with 3D tomosyn thesis and utilizing computer aided detection (CAD). COMPARISON: Prior mammograms were reviewed. FINDINGS: There has been no significant change in the appearance and distribution of the fibroglandular tissue. There are no CAD designations. There are no new spiculated masses nor malignant appearing microcalcification groups. There is no significant architectural distortion nor skin thickening-retraction. IMPRESSION: No radiographic evidence of malignancy. BI-RADS Category 1 - Negative Breast Density - Category B - Scattered areas of fibroglandular density Breast density Category C or D implies that the patient has dense breast tissue. Dense breast tissue can make it harder to find cancer on a mammogram. Dense breast tissue is also associated with an incr eased risk of breast cancer. This information about the result of the mammogram report was provided to the patient to raise their awareness. Use this report when you speak with the patient about their risks for breast cancer, which includes their family history. At that time, you may recommend additional screening tests (Ultrasoun d or MRI) as these tests may add significant information. A negative radiographic report should not delay biopsy if a dominant or clinically suspicious mass is present. Up to ten percent of cancers are not identified on mammography. A negative report may reinforce clinical impression. Adenosis and dense breasts may obscure an underlying neoplasm. False positive reports average 6 to 10%. Patient will receive a letter notifying them of these results.
== END 2024-12-12 00:56 ==
LOC: DI 00:41
PROVIDERS: PCP Nurse Practitioner Family; Visit Provider Nurse Practitioner Family
DX: Z12.31 Encounter for screening mammogram for malignant neoplasm of breast (principal); R92.323 Mammographic fibroglandular density, bilateral breasts
CPT/HCPCS: 77063; 77067

== ENCOUNTER 2025-05-25 15:51 | Outpatient (REF) | payer MEDICARE, BC, SELFPAY ==
[2025-05-25 15:55] LABS: ALT 43 U/L (14-59); AST 34 U/L (15-37); Albumin 3.9 g/dL (3.4-5.0); Alkaline Phosphatase 81 U/L (46-116); Anion Gap 6.3 mmol/L (3-11); BUN 14 mg/dL (7-18); Bilirubin, Total 1.1 mg/dL (0.2-1.0); CO2 30.7 mmol/L (21.0-32.0); Calcium 9.3 mg/dL (8.5-10.1); Calculated LDL 91 mg/dL (<100); Chloride 99 mmol/L (98-107); Cholesterol 166 mg/dL (<200); Estimated GFR 79.22 (mL/min/1.73m2); Glucose 107 mg/dL (74-106); HDL Cholesterol 63 mg/dL (>or=50); Potassium 3.9 mmol/L (3.5-5.1); Sodium 136 mmol/L (136-145); Total Protein 7.7 g/dL (6.4-8.2); Triglyceride 61 mg/dL (<150)
== END 2025-05-25 15:52 | disposition home or self-care (01) ==
LOC: NCHCN 15:51
PROVIDERS: PCP Nurse Practitioner Family; Visit Provider Nurse Practitioner Family
DX: E78.5 Hyperlipidemia, unspecified (principal)
CPT/HCPCS: 80053; 80061

== ENCOUNTER 2025-08-24 02:10 | Outpatient (CLI) | payer MEDICARE, BC, SELFPAY ==
--- NOTE | 2025-08-24 | DI.US_ITS ---
Exam(s) US SOFT TISSUE EXTREMITY EXAM: US SOFT TISSUE EXTREMITY CLINICAL HISTORY: posterior pain behind rt knee, M25.561, tenderness, eval for christianson's cyst. TECHNIQUE: Ultrasound was performed using standard protocol. COMPARISON: No exams were available for comparison FINDINGS: Sonographic assessment utilizing grayscale and color Doppler imaging was performed and targeted to the area of clinical concern. There is a 2.6 x 1.9 x 2.5 cm hypoechoic avascular solid-appearing mass in the popliteal fossa laterally. There are echogenic shadowing foci internally suggesting calcification. There is a 2nd solid hypoechoic mass more inferiorly located measuring 3.9 x 2.2 x 2.6 cm in the right calf. It is avascular. There are several echogenic shadowing foci internally suggesting calcifications. IMPRESSION: Two soft tissue mass is seen sonographically in the right catheterization and popliteal region. These areas should be further evaluated with both a CT scan with contrast and an MRI without and with contrast. Unexpected findings DATA REPOSITORY:
== END 2025-08-24 02:30 ==
PROVIDERS: PCP Nurse Practitioner Family; Visit Provider Nurse Practitioner Family
DX: M25.561 Pain in right knee (principal); R93.89 Abnormal findings on diagnostic imaging of other specified body structures
CPT/HCPCS: 76881

== ENCOUNTER 2025-08-26 09:24 | Outpatient (CLI) | payer MEDICARE, BC, SELFPAY ==
[2025-08-26 13:59] LABS: Abs Immature Grans 0.02 10^3/uL (0.0-0.06); HCT 36.8 % (36.0-46.0); HGB 12.4 g/dL (11.2-15.7); Immature Grans % 0.3 %; MCH 29.2 pg (27.0-33.0); MCHC 33.7 % (32.0-36.0); MCV 87 fL (80-95); MPV 8.8 fL (8.0-11.0); Platelet Count 355 10^3/uL (130-400); RBC 4.24 10^6/uL (3.93-5.22); RDW 14.4 % (11.7-14.6); RDW-SD 45.8 fL; WBC 7.47 10^3/uL (4.4-10.8)
[2025-08-26 14:32] LABS: Anion Gap 8.4 mmol/L (3-11); BUN 15 mg/dL (7-18); CO2 29.6 mmol/L (21.0-32.0); Calcium 9.3 mg/dL (8.5-10.1); Chloride 98 mmol/L (98-107); Estimated GFR 60.61 (mL/min/1.73m2); Glucose 100 mg/dL (74-106); Potassium 3.4 mmol/L (3.5-5.1); Sodium 136 mmol/L (136-145)
== END 2025-08-26 09:25 | disposition home or self-care (01) ==
LOC: LBO 09:24
PROVIDERS: PCP Nurse Practitioner Family; Visit Provider Nurse Practitioner Family
DX: M25.561 Pain in right knee (principal)
CPT/HCPCS: 36415; 80048; 85025

== ENCOUNTER → 2025-09-10 09:39 | Outpatient (BNVA) | payer MEDICARE, BC, SELFPAY | PROVIDERS: PCP Nurse Practitioner Family; Referring Provider Nurse Practitioner Family; Visit Provider Physical Therapy Assistant | DX: Z12.11 Encounter for screening for malignant neoplasm of colon (principal); Z86.0101 Personal history of adenomatous and serrated colon polyps; Z86.0102 Personal history of hyperplastic colon polyps | CPT/HCPCS: S0285 ==

== ENCOUNTER → 2025-09-18 03:37 | Outpatient (CLI) | payer MEDICARE, BC, SELFPAY ==
--- NOTE | 2025-09-18 | DI.MRI_ITS ---
Exam(s) MR LOWER JOINT RT WO/W EXAM: MR LOWER JOINT RT WO/W CLINICAL HISTORY: POPLITEAL PAIN M79.609 PROGRESSIVE RT KNEE PAIN UNEXPECTED FINDINGS US 08/24 TECHNIQUE: Multiplanar multisequence MRI of the knee was performed on 1.5 joanie unit with both pre and post contrast infused sequences.. Contrast injected was 15 mL Dotarem intravenous COMPARISON: US US SOFT TISSUE EXTREMITY from 08/24/2025 There are no plain films available at the time of this MRI interpretation FINDINGS: EFFUSION: There is a small-moderate size knee joint effusion. There is mild synovial thickening. Posteriorly in the lateral aspect of the popliteal fossa there are 3 similar- appearing findings/lesion which contain abundant debris as well as some hypointense calcific densities, these located behind the upper tibia, and popliteal fossa common behind the lower femur, all lateral of center and appeari ng to be possibly connected. The largest of these is the most inferior which measures 4 cm craniocaudal by 2.2 cm AP by 2.5 cm wide and is intimately associated with the lateral gastrocnemius.. This appears to have both intra and extra-articular components. There is the smaller but similar appearing finding anteriorly in the region of the lateral aspect of the anterior intra-articular Hoffa fat pad, this measuring 1.6 by 1.0 by 2.0 cm. Also other smaller similar appearing findings in the anterior knee, including just anterior to the anterior horn of the medial meniscus. There is no associated bone erosion MARROW:No evidence of fracture. No evidence of bone contusion in the femoral condyles and tibial plateau. There are 2 adjacent degenerative subarticular cysts in the posterior tibial plateau, measuring 7 and 5 mm. No intra osseous findings in the femoral condyles and distal femoral metaphysis nor within the fibular head and neck. There are neoplastic appearing osseous lesions. PATELLOFEMORAL COMPARTMENT: The quadriceps tendon is intact. The patellar ligament is intact. There is significant thinning of the retropatellar cartilage over both facets, more so over the medial facet. There are 2 areas of subarticular signal abnormality in the posterior patella, the largest being centrally. There are no osteochondral defects at this level.There is no intraosseous signal to suggest recent patellar dislocation. There are no patellar retinacular tears. CRUCIATE LIGAMENTS: The anterior cruciate ligament is intact.The posterior cruciate ligament is intact. MEDIAL COMPARTMENT/MEDIAL MENISCUS: There is grade 2 signal approaching tears signal at the junction of the body and root. The anterior horn appears intact.. There is moderate multi focal thinning of the articular cartilage over the medial femoral condyle. No osteochondral defects. No subarticular edema. No osteophytes. MEDIAL COLLATERAL LIGAMENT: Intact LATERAL COMPARTMENT/LATERAL MENISCUS: There is grade 2 signal also evident in the posterior horn of the lateral meniscus but without a distinct tear. There is thinning of the anterior horn of the medial meniscus and mild extrusion.There is mild thinning of the articular cartilage over the lateral femoral condyle. No subarticular edema. ILIOTIBIAL BAND: Intact LATERAL COLLATERAL LIGAMENT COMPLEX: The fibular collateral ligament is intact. The biceps femoris tendon is intact.Popliteus is impacted by the largest of the 3 posterior collections as described above but the popliteus tendon is intact. IMPRESSION: 1. 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 Recommend plain films or CT scan to confirm presence of calcification. 2. Small joint effusion with some synovial thickening 3. Degenerative changes in both menisci, bordering on tear signal. 4. There are no cruciate nor collateral ligament tears. 5. Degenerative changes with significant articular cartilage thinning, most prominent in the medial patellofemoral compartments DATA REPOSITORY:
[2025-09-18] MEDS: Gadoterate meglumine 20 ML SYRINGE IVP (09:09)
[2025-09-18] MEDS: Normal Saline Flush 10 ML SYR IVP (09:10)
--- NOTE | 2025-09-18 11:50 | DI.VRAD_ITS ---
PROCEDURE INFORMATION: Exam: MR Right Lower Extremity Joint Without and With Contrast, Knee Exam date and time: 09/18/2025 8:42 AM Age: 69 years old Clinical indication: Pain and abnormal findings; Abnormal imaging study; US 08/24/25; Right; Posterolateral knee pain, abnormal US TECHNIQUE: Imaging protocol: Magnetic resonance imaging of the right lower extremity joint without and with contrast. Exam focused on the knee. Contrast material: DOTAREM; Contrast volume: 15 ml; Contrast route: INTRAVENOUS (IV); COMPARISON: US SOFT TISSUE EXTREMITY 08/24/2025 7:04 AM FINDINGS: Bones/joints: There is a small knee joint effusion with synovial hypertrophy. There is mild medial and lateral and mild to moderate patellofemoral compartmental chondromalacia. Mild osteophyte formation is present about the patellofemoral compartment. There are mild subcortical degenerative cystic changes in the patella. Subcortical degenerative cystic changes are also present in the posteromedial aspect of the lateral tibial plateau. The bone marrow is otherwise normal in signal. The cortices are preserved. Fat pads of knee: There is mild edema in the anterior suprapatellar fat pad. Bursae: No significant Roberts's cyst. Medial meniscus: There is blunting of the free edge of the posterior horn of the medial meniscus, indicating central radial tear here. Lateral meniscus: The body of the lateral meniscus is with blunting of its free edge, compatible with central radial tear. Additional small horizontal component of tear involves the anterior horn, extending along its inferior articular surface. Anterior cruciate ligament: Unremarkable. No tear. Posterior cruciate ligament: Unremarkable. No tear. Medial capsule and supporting structures: Unremarkable. No tear. Lateral capsule and supporting structures: Unremarkable. No tear. Extensor mechanism of knee: Unremarkable. No tear. Soft tissues: Mild subcutaneous soft tissue edema is present anteriorly without discrete collection. There are several foci of heterogeneous signal in the soft tissues about the knee, including posterior to the distal femur just proximal to the lateral femoral condyle and posterior to the lateral femoral condyle, along the dorsal superior aspect of Hoffa's fat pad, and posterior to the proximal tibia laterally. The foci posterior to the proximal tibia are probably along the popliteus tendon sheath. At least 2 of the lesions probably correspond to the finding on ultrasound. The lesions are heterogeneous, with globular foci of intermediate and dark signal, with the dark signal foci probably representing calcifications. 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 IMPRESSION: 1. Lesions in the soft tissues about the knee as above, including corresponding to those on ultrasound of 08/24/2025, suspicious for primary synovial chondromatosis. Correlation with radiographs or previously recommended CT scan would be of benefit to confirm presence of calcifications. 2. Small knee joint effusion with synovial hypertrophy. 3. Degenerative changes as described. 4. Medial and lateral meniscal tears as described. Dictated and Authenticated by: Colton Farrar MD. Orderin DIPTI WALDEN MD
== END ==
LOC: DI 03:37
PROVIDERS: PCP Nurse Practitioner Family; Visit Provider Nurse Practitioner Family
DX: M79.604 Pain in right leg (principal); M67.88 Other specified disorders of synovium and tendon, other site
CPT/HCPCS: 73723

== ENCOUNTER 2025-09-24 08:28 | Day surgery (SDC) | payer MEDICARE, BC, SELFPAY ==
--- NOTE | 2025-09-23 17:30 | W.ANESPRE ---
General Info Date of Service Date Performed: 09/24/25 Height: 5 ft 8 in Weight: 71.214 kg Body Mass Index (BMI): 23.8 Surgical Procedure: Operation Date: 09/24/25 09:35 Proposed Procedure Side Surgeon p Colonoscopy Angela Lemus MD Meds Allergies and Home Medications Allergies Allergy/AdvReac Type Severity Reaction Status Date / Time No Known Allergies Allergy Verified 09/24/25 08:45 Home Medication Medication Instructions Recorded multivitamin (Daily Multi-Vitamin 1 ea PO DAILY 10/25/15 tablet) chlorthalidone 25 mg tablet 12.5 mg (1/2 x 25 mg) PO DAILY #0 08/10/18 tabs losartan 100 mg tablet 100 mg PO DAILY 08/08/23 bisacodyl 5 mg tablet,delayed 5 mg PO ONCE #4 tabs 09/10/25 release (Dulcolax (bisacodyl)) polyethylene glycol 3350 17 17 g PO ONCE #238 grams 09/10/25 gram/dose oral powder rosuvastatin 5 mg tablet 5 mg PO HS 09/10/25 lorazepam 0.5 mg tablet 0.5 mg PO BID PRN 09/22/25 Current Visit Medications: Current Medications Generic Name Dose Route Start Last Admin Trade Name Freq PRN Reason Stop Dose Admin Ringer's Solution 1,000 mls @ 80 mls/hr 09/24/25 06:00 IV 09/24/25 23:59 INFUSION CANDACE IV Miscellaneous Supplies 1 each 09/24/25 06:00 Iv Access IV 09/24/25 23:59 DIRECTED CANDACE Sodium Biphosphate/Sodium Phosphate 133 ml 09/24/25 06:00 Na Phosphate Enema-Adult 133 Ml Btl NE 09/24/25 23:59 DIRECTED PRN Sodium Chloride 0 mlx 09/24/25 06:00 Normal Saline Flush 10 Ml Syr IV 09/24/25 23:59 PRN PRN Sodium Chloride 0 ml 09/24/25 06:00 Normal Saline 10 Ml Vial IJ 09/24/25 23:59 DIRECTED PRN Sterile Water 0 ml 09/24/25 06:00 Water,Injection,Sterile 10 Ml Vial IJ 09/24/25 23:59 DIRECTED PRN PFSH Active Problems Active Problems: Problem Status Onset Code Seborrheic keratoses Acute L82.1 Colon polyp, hyperplastic Acute ~04/2021 K63.5 Serrated adenoma of colon Acute ~04/2021 D12.6 Tubular adenoma Acute ~12/2019 D36.9 Iliopsoas bursitis of right hip Acute M70.71 Barretts esophagus Acute K22.70 Esophagitis determined by endoscopy Acute K20.9 Internal hemorrhoids without complication Acute K64.8 Gastritis Chronic K29.70 Hx of malignant neoplasm of colon Resolved Z85.038 Anemia Chronic D64.9 Status post-operative repair of hip fracture Acute Z98.890, Z87.81 Closed right hip fracture Acute 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 Postoperative anemia Acute D64.9 Hypokalemia Acute E87.6 History of hypertension Acute Z86.79 Anxiety Acute F41.9 Medical History Medical History Colon cancer stage 2 per referral History of traumatic fracture of hip History of peptic ulcer disease Alcohol use Acute arthritis Osteoporosis Abnormal mammography Elevated liver enzymes Fracture, intertrochanteric, right femur s/p IM nailing Hyperkalemia Hypertension Abdominal pain Chronic anxiety Occult blood in stools Tobacco use Melanoma Actinic keratosis Skin cancer, basal cell Polyuria Surgical History Surgical History H/O esophagogastroduodenoscopy (~12/22/19) 10/2018- gastric ulcers, reflux esophagitis Hemicolectomy (06/13/18) Colonoscopy - MAC (~05/2024) 06/05- colon cancer and pre-cancerous polyps 10/2018- hyperplastic polyps--polups removed 2022 Tobacco Smoking/Tobacco Use Status: Former Tobacco Use Passive smoking exposure: No Alcohol Alcohol Intake: current Alcohol intake frequency: a few times a week Alcohol type: wine Substance Use Substance use: Never Substance use type: does not use Vital Signs and Lab Results Vital Signs Most Recent Vital Signs in EMR: Temp Pulse Resp BP Pulse Ox 36.1 C L 67 16 138/97 H 97 09/24/25 08:56 09/24/25 08:56 09/24/25 08:56 09/24/25 08:56 09/24/25 08:56 Lab Results Complete Blood Count: WBC, (4.4-10.8) 7.47 10^3/uL 08/26/25, 13:53 RBC, (3.93-5.22) 4.24 10^6/uL 08/26/25, 13:53 Hgb, (11.2-15.7) 12.4 g/dL 08/26/25, 13:53 Hct, (36.0-46.0) 36.8 % 08/26/25, 13:53 Plt Count, (130-400) 355 10^3/uL 08/26/25, 13:53 Complete Metabolic Panel: Sodium, (136-145) 136 mmol/L 08/26/25, 13:53 Potassium, (3.5-5.1) 3.4 mmol/L L 08/26/25, 13:53 Chloride, (98-107) 98 mmol/L 08/26/25, 13:53 Carbon Dioxide, (21.0-32.0) 29.6 mmol/L 08/26/25, 13:53 BUN, (7-18) 15 mg/dL 08/26/25, 13:53 Creatinine, (0.55-1.02) 1.0 mg/dL 08/26/25, 13:53 Est GFR (CKD-EPI 2020), (mL/min/1.73m2) 60.61 08/26/25, 13:53 Calcium, (8.5-10.1) 9.3 mg/dL 08/26/25, 13:53 Glucose, (74-106) 100 mg/dL 08/26/25, 13:53 Imaging and Studies Imaging and Studies Study information below may be from another EMR and interpreted by another provider. Please see original notes in EMR for more complete details. EKG Summary: 10/10: sinus rhythm. Anesthesia Assessment and Plan Anesthesia History Personal History: No History of Anesthesia Complications Family History: No Family History of Anesthesia Complications Exercise Tolerance Exercise Tolerance: Metabolic Equivalents>4 Pertinent Negatives Pertinent Negatives: No Symptoms of GERD, No Major Cardiovascular Symptoms or Complaints and No Major Pulmonary Symptoms or Complaints Cardiac & Pulmonary Exam Cardiac Exam: Normal S1/S2 Heart Sounds Pulmonary Exam: Clear Bilateral Breath Sounds Implantable Cardiac Device Does patient have a Pacemaker or an ICD?: No Airway Exam Known Difficult Airway: No Mallampati Class: 2 Mouth Opening: Normal (> 3cm) Thyromental Distance: Greater than 3 cm Neck Range of Motion: Full ROM Neck Circumference: Normal Teeth Condition: Normal Dentition (Right front tooth removable partial, in securely) and Removable Dentures/Plates Upper ASA Classification ASA Score: ASA 2 Emergency Case?: No NPO Status NPO Status: NPO Clears >2 hours, Solids >8 hours Anesthesia Plan Resuscitation Status: Full Code Anesthesia Technique: General Anesthesia Airway Planned: Natural Airway Monitors Used: Standard Monitors Preoperative Comments:: 69 yo for colo. Sig PMHx: HTN (losartan, chlorthalidone), esophagitis/gastritis, anxiety (lorazepam). Former smoker, occ EtOH. ECG: sinus. Previous anes: - last colo, midaz, prop, natural airway, no issues - midaz was a request. - multiple colos, prop, natural airway, no issues. - hip fracture, spinal, no issues. - hemicoloectomy, mac 3 grade 2, easy mask.
[2025-09-24 08:56] VITALS: BP 138/97; PULSE 67; RESP 16; TEMP 36.1; O2SAT 97
[2025-09-24] MEDS: Lactated Ringers 1,000 ML 80 ML IV (09:15)
[2025-09-24 09:16] VITALS: BMI 23.8
--- NOTE | 2025-09-24 09:55 | BOWEL_PTH ---
PATIENT: Emily Miles LOC: [facility] U#:[id number] AGE/SX: 69/F ROOM: RE09/24/[address]: Angela Lemus MD : [id number] BED: DIS: 09/24/2025 SPEC #: [id number] RECD: 09/24/25 12:55 STATUS: [facility] #: [id number] JAMES: 09/24/25 09:[address]: Angela Lemus DEPT: Surgical Specimen RECD BY: Arabella Jacobo ENTERED: 09/24/25 12:59 SP TYPE: Bowel OTHR DR: WIN RESENDEZ, BENDING ROLL OPERATOR Tissues: 1 - BIOPSY BOWEL 2 - BIOPSY BOWEL 3 - BIOPSY BOWEL Procedures: GROSS AND MICRO LEVEL 4 Comments: [id number]
--- NOTE | 2025-09-24 10:05 | W.COLOREPORT ---
Date of service: 09/24/25 Time of Service: 10:06 Colonoscopy Report Date of procedure: 09/24/25 Pre-op diagnosis general: History of colon cancer and colon polyps Post-op diagnosis procedure note: same Procedure: Colonoscopy with cold forceps polypectomy Surgeon: Angela Lemus Anesthesia Type: General:No Airway Estimated blood loss (mL): 1 Pathology: other (1. sigmoid polyp. 2. sigmod biopsy. 3. rectum polyp. ) Complications: None Prep: Miralax/Dulcolax (excellent) Procedure Description: Informed consent was obtained and the patient was taken to the procedure area. The patient was placed in left lateral decubitus position on the procedure table. Timeout was performed. Anesthesia was induced. A lubricated colonoscope was inserted through the anus and passed to the ileocolic anastomosis. The scope was then slowly withdrawn and the colonic and rectal mucosa examined. Ileocolic anastomosis patent and normal. No cancer recurrence. Sigmoid colon with flat 3mm polyp excised with cold forceps. Sigmoid with 19mm flat white lesion, nonpolypoid, possibly scar from prior polypectomy. Biopsy performed with cold forceps for pathologic assessment. Rectum with 3mm sessile polyp excised with cold forceps. No diverticulosis was seen. The scope was retroflexed in the anorectal junction examined. Uncomplicated internal hemorrhoids present. Assessment and plan: History of ascending colon cancer history of sessile serrated adenomas history of tubular adenomas two small polyps removed today. Recommend next colonoscopy in 3 years due to sessile serrated and cancer history.
[2025-09-24 10:07] VITALS: BP 109/80; PULSE 77; RESP 18; TEMP 36.1; O2SAT 96
--- NOTE | 2025-09-24 10:16 | W.ANESPOSTOP ---
Postoperative Evaluation Date, Time and Location Date Performed: 09/24/25 Time Performed: 10:07 Patient Location: Day Surgery Unit Vital Signs Most Recent Imported Vital Signs: Most Recent Vital Signs Temp Pulse Resp BP Pulse Ox 36.1 C L 77 18 109/80 96 09/24/25 10:07 09/24/25 10:07 09/24/25 10:07 09/24/25 10:07 09/24/25 10:07 Pain Score Most Recent Pain Score: Most Recent Pain Score Pain Level 0 09/24/25 10:07 Assessment Mental Status: Awake (Alert & Oriented to Patient Baseline) Airway and Respiratory Function: Patent airway with normal (patient baseline) respiratory exam Cardiovascular Function: Hemodynamically Stable Hydration Status: Adequately Hydrated Nausea & Vomiting: No Nausea or Vomiting Pain: Pt. Denies Any Pain Peripheral Nerve Block: Patient did not receive a nerve block
--- NOTE | 2025-09-24 10:26 | W.PM.DSUDISC ---
Date of service: 09/24/25 Discharge Plan Disposition Patient Disposition: Home Condition: Stable Discharge Details Reason For Visit: colonoscopy surveillance Attending Provider: Angela Lemus Primary Care Provider: WIN RESENDEZ Home Meds and New Rx's Prescriptions: Continued rosuvastatin 5 mg tablet 5 mg PO HS multivitamin [Daily Multi-Vitamin] 1 EACH tablet 1 ea PO DAILY losartan 100 mg tablet 100 mg PO DAILY Patient Comments: TAKE ONE TABLET BY MOUTH EVERY DAY chlorthalidone 25 mg Tablet 12.5 mg PO DAILY Qty: 0 0RF lorazepam 0.5 mg tablet 0.5 mg PO BID PRN Patient Comments: TAKE ONE TABLET BY MOUTH TWICE A DAY NEEDED FOR ANXIETY Discontinued bisacodyl [Dulcolax (bisacodyl)] 5 mg tablet,delayed release (DR/EC) 5 mg PO ONCE Qty: 4 0RF Rx Instructions: Take per colonoscopy instructions provided by ordering providers office polyethylene glycol 3350 17 gram/dose powder 17 g PO ONCE Qty: 238 0RF Rx Instructions: Take per colonoscopy instructions provided by ordering providers office Discharge Instructions Additional Instructions: Two small polyps and one polyp scar seen today. Polyps removed and scar biopsied to make sure its just a scar and not a polyp regrowth. Your next colonoscopy will be due in 3 years due to your history of cancer and polyps. Stand Alone Forms: Anesthesia Discharge Inst., Colonoscopy Post Instructions, Nichole Unger (DSU), Portal Information Activity:: Activity as Tolerated Diet:: As Tolerated Discharge Orders Discharge Orders: Discharge Order (Routine); Ordered 09/24/25 Ordered By: Angela Lemus DS: Diagnosis Discharge Diagnosis (1) Encounter for colonoscopy due to history of colon cancer: Status: Acute (2) Sigmoid polyp: Status: Acute (3) Rectal polyp: Status: Acute
[2025-09-24 10:35] VITALS: BP 145/95; PULSE 60; RESP 16; TEMP 36.2; O2SAT 98
== END 2025-09-24 10:54 | disposition home or self-care (01) ==
PROVIDERS: PCP Nurse Practitioner Family; Visit Provider Surgery
PROC: 0DJD8ZZ Inspection of Lower Intestinal Tract, Via Natural or Artificial Opening Endoscopic (ICD-10-PCS; CPT 45378; principal; 2025-09-24 09:30)
DX: Z12.11 Encounter for screening for malignant neoplasm of colon (principal); Z85.038 Personal history of other malignant neoplasm of large intestine; D12.8 Benign neoplasm of rectum; K63.5 Polyp of colon
CPT/HCPCS: 45380; 88305; J2250; J2704

== ENCOUNTER → 2025-10-12 02:10 | Outpatient (CLI) | payer MEDICARE, BC, SELFPAY ==
--- NOTE | 2025-10-12 | DI.CTLCSR_ITS ---
Exam(s) CT CHEST LUNG CANCER SCREEN EXAM: CT CHEST LUNG CANCER SCREEN CLINICAL HISTORY: Z87.891 Personal history nicotine dependence,in remission TECHNIQUE: Imaging Protocol: Axial computed tomography images with coronal and sagittal reformatted images were created and reviewed. Lung Computer Aided Detection (CAD) was utilized. COMPARISON: CT ABD PELVIS WITH CONTRAST from 06/10/[address] CHEST LUNG CANCER SCREEN from 02/15/[address] CHEST LUNG CANCER SCREEN from 07/16/[address] CHEST LUNG CANCER SCREEN from 08/18/2024 FINDINGS: Tracheobronchial tree: Patent where visualized. No bronchiectasis. Pulmonary parenchyma: There are mild scattered ground-glass opacities in the lungs. No architectural distortion. Lung Nodules: There are no new or suspicious pulmonary nodules. Mediastinum and Mireya: No dominant adenopathy or fluid collection. The esophagus is unremarkable. Thyroid gland: Unremarkable. Lymph nodes: Unremarkable. Pleura: No effusion or pneumothorax. Heart: The heart is not dilated. Mild coronary artery calcification is present. No pericardial effusion. Aorta: The ascending thoracic aorta measures 3.9 x 3.8 cm.Atherosclerotic calcification is present. 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 Soft Tissues: Unremarkable. Bones: Within normal limits. IMPRESSION: 1. There are no new or suspicious pulmonary nodules. 2. Mild scattered ground-glass opacities in the lungs. These are nonspecific. Differential considerations include both acute findings with infectious etiologies, such as viral causes like COVID-19, chronic interstitial disease such is interstitial pneumonias aureus unfilled pneumonias. Hypersensitivity pneumonia could also have this appearance. Lung RADS Cat 1S - Negative: No nodules and definitely benign nodules. Other: Clinically Significant or Potentially Clinically Significant Findings (non lung cancer) Lung-RADS 1.0 CATEGORIES: Category 0 - Prior chest CT exam(s) being located for comparison. Category 1 - Annual screening in 12 months. No nodules or definitely benign nodules. Category 2 - Annual screening in 12 months. Benign appearance. Nodules with low likelihood of becoming active cancer. Category 3 - 6-month follow-up. Probably benign. Short-term follow-up suggested. Nodules with low likelihood of becoming active cancer. Category 4A - 3-month follow-up and CT/PET if >8 mm in size. Suspicious finding. Findings which require additional testing. Category 4B - Findings which require additional testing and tissue sampling. Suspicious finding. Category 4X - Category 3 or 4 nodules with additional features or imaging findings that increases the suspicion of malignancy. Modifier S- Potentially clinically significant finding. (Non lung cancer) Unexpected findings RADIATION DOSE DELIVERED: 35.23mGy.cm Total DLP 35.23mGy.cmTotal DLP DATA REPOSITORY: All CT scans at this facility are submitted to the National Radiology Data Registry (NRDR) Dose Index Registry (DIR) with the [employer] ([employer]). RADIATION OPTIMIZATION: All CT scans at this facility use at least one of these dose optimization techniques: automated exposure control; mA and/or kV adjustment per patient size (includes targeted exams where dose is matched to clinical indication); or iterative reconstruction.
--- NOTE | 2025-10-12 | DI.RAD_ITS ---
Exam(s) XR KNEE RT 3V AP,LAT,FLORESITA EXAM: XR KNEE RT 3V AP,LAT,FLORESITA CLINICAL HISTORY: M25.561,M25.861 Pain right knee, posterior rt knee pain, Other specified. TECHNIQUE: 2D digital imaging was performed of the right knee. Three views obtained. AP, lateral and PA tunnel views were obtained. COMPARISON: MR MR LOWER JOINT RT WO/W from 09/18/2025 FINDINGS: BONES: No acute fracture is present. No bony destructive lesion is seen. JOINTS: There is mild asymmetric narrowing of the medial femoral tibial joint. There is a small joint effusion. There again seen osseous densities posteriorly within the joint space consistent with osteochondromatosis. SOFT TISSUE: Normal. IMPRESSION: 1. Mild degenerative changes seen in the knee. 2. Findings suggestive osteochondromatosis. DATA REPOSITORY: RADIATION DOSE DELIVERED:
== END ==
LOC: DI 02:10
PROVIDERS: PCP Nurse Practitioner Family; Visit Provider Nurse Practitioner Family
DX: Z87.891 Personal history of nicotine dependence (principal); M25.561 Pain in right knee; M25.861 Other specified joint disorders, right knee
CPT/HCPCS: 71271; 73562